=== PATIENT | female | born 1940 | race Caucasian/White ===

== ENCOUNTER → 2017-08-10 | Outpatient (CLI) | payer MEDICARE ==
--- NOTE | 2017-08-11 08:32 | MM ---
Reason for exam: additional evaluation requested from abnormal screening. Last mammogram was performed 1 month ago. History: Patient is postmenopausal and is nulliparous. Family history of breast cancer in sister at age 57, breast cancer in maternal cousin at age 70, and breast cancer in paternal cousin at age 55. Benign excisional biopsy of the right breast, 1998. Benign excisional biopsy of the left breast, 1995. Benign cyst aspiration of the left breast, 1979. Benign excisional biopsy of the left breast, 1979. Benign excisional biopsy of the left breast, 1977. Benign excisional biopsy of the right breast, 1976. Cyst aspiration of the left breast. Cyst aspiration of the right breast. Physical Findings: Nurse did not find any significant physical abnormalities on exam. MG 3D Work Up W/Cad RT CC with magnification, LM with magnification, and LM view(s) were taken of the right breast. Prior study comparison: July 24, 2017, bilateral MG 3d screening mammo w/cad. July 22, 2016, bilateral MG 3d screening mammo w/cad. The breast tissue is extremely dense which could obscure a lesion on mammography. Finding: There are typically benign, increased density heterogeneous, grouped/clustered calcifications in the 12 o'clock position of the right breast, 5 cm from the nipple. New finding since July 22, 2016. These results were verbally communicated with the patient and result sheet given to the patient on 08/10/17. ASSESSMENT: Probably benign, BI-RAD 3 RECOMMENDATION: Follow-up diagnostic mammogram of the right breast in 6 months.
== END | disposition home or self-care (01) ==
LOC: RADMAMWWP 15:29
PROVIDERS: ATTEND Family Medicine
DX: R92.8 Other abnormal and inconclusive findings on diagnostic imaging of breast (principal)
CPT/HCPCS: G0206; G0279

== ENCOUNTER → 2018-03-05 | Outpatient (CLI) | payer MEDICARE | END | disposition home or self-care (01) | LOC: LABWHC1 10:19 | PROVIDERS: ATTEND Otolaryngology | DX: H93.3X2 Disorders of left acoustic nerve (principal); H91.90 Unspecified hearing loss, unspecified ear; R42 Dizziness and giddiness | CPT/HCPCS: 36415; 82565; 84520 ==

== ENCOUNTER → 2018-03-05 | Outpatient (CLI) | payer MEDICARE ==
--- NOTE | 2018-03-05 11:17 | MM ---
Reason for exam: follow-up at short interval from prior study. Last mammogram was performed 7 months ago. History: Patient is postmenopausal and is nulliparous. Family history of breast cancer in sister at age 57, breast cancer in maternal cousin at age 70, and breast cancer in paternal cousin at age 55. Benign excisional biopsy of the right breast, 1998. Benign excisional biopsy of the left breast, 1995. Benign cyst aspiration of the left breast, 1979. Benign excisional biopsy of the left breast, 1979. Benign excisional biopsy of the left breast, 1977. Benign excisional biopsy of the right breast, 1976. Cyst aspiration of the left breast. Cyst aspiration of the right breast. Physical Findings: Nurse did not find any significant physical abnormalities on exam. MG 3D Diag Mammo W/Cad RT CC and MLO view(s) were taken of the right breast. Prior study comparison: August 10, 2017, right breast MG 3d work up w/cad RT. July 24, 2017, bilateral MG 3d screening mammo w/cad. The breast tissue is heterogeneously dense. This may lower the sensitivity of mammography. Grouped calcifications 12 o'clock right breast stable for 6 months , suspected fat necrosis. Architectural distortion posterior upper outer right breast appears to have been present in 2014 but now better seen with 3D, likely excisional scar. These results were verbally communicated with the patient and result sheet given to the patient on 03/05/18. ASSESSMENT: Probably benign, BI-RAD 3 RECOMMENDATION: Follow-up diagnostic mammogram of both breasts in 6 months (this will be a total 1 year short interval followup for the right breast). LEÓN
== END | disposition home or self-care (01) ==
LOC: RADMAMWWP 09:26
PROVIDERS: ATTEND Family Medicine
DX: R92.8 Other abnormal and inconclusive findings on diagnostic imaging of breast (principal)
CPT/HCPCS: 77065; G0279; 77061

== ENCOUNTER → 2018-03-07 | Outpatient (CLI) | payer MEDICARE ==
--- NOTE | 2018-03-07 12:06 | MR ---
EXAMINATION TYPE: MR brain and iac wo/w con DATE OF EXAM: 03/07/2018 10:38 AM COMPARISON: NONE HISTORY: Acoustic Nerve Dis / Hearing Loss / Dizziness, LYONS CONTRAST: Patient received 6.5 mL intravenous Gadavist gadolinium contrast. Multiplanar and multispin-echo imaging of the brain was performed . Pre and post contrast enhanced i mages are obtained.High-resolution imaging of the internal auditory canals. The ventricles, basal cisterns and sulci overlying the cerebral convexities are mildly enlarged. There is evidence of moderate periventricular white matter ischemic demyelination. Remote deep white matter insults are also noted. No acute edema is seen on diffusion weighted imaging. There is no evidence for midline shift or mass effect. Acute intracranial hemorrhage or extra-axial collection is not evident. No enhancing lesions are seen. The paranasal sinuses and mastoid air cells are well-aerated. High-resolution imaging of the internal auditory canals fails demonstrate evidence for an enhancing a coustic schwannoma or cerebellopontine cistern angle mass. IMPRESSION: 1. Age-related atrophic and chronic small vessel ischemic change. No acute intracranial process at t his time. No enhancing lesions are seen. 2 no evidence for an enhancing acoustic schwannoma or cerebellopontine cistern angle mass.
== END | disposition home or self-care (01) ==
LOC: RADMRIMAIN 09:23
PROVIDERS: ATTEND Otolaryngology
DX: G31.9 Degenerative disease of nervous system, unspecified (principal); I67.82 Cerebral ischemia
CPT/HCPCS: 70553; A9581

== ENCOUNTER → 2018-11-19 | Outpatient (CLI) | payer MEDICARE ==
[2018-11-19 16:31] LABS: Anisocytosis Slight; Basophils % (A) 2 %; Eosinophils # (A) 0.2 k/uL (0-0.7); Eosinophils % (A) 7 %; HCT 28.3 % (34.0-46.0); HGB 8.9 gm/dL (11.4-16.0); Hypochromasia Slight; Lymphocytes % (A) 45 %; MCH 37.3 pg (25.0-35.0); MCHC 31.6 g/dL (31.0-37.0); MCV 118.1 fL (80.0-100.0); Macrocytosis Marked; Mean Platelet Volume 7.5; Monocytes # (A) 0.1 k/uL (0-1.0); Monocytes % (A) 6 %; Neutrophils # (A) 0.8 k/uL (1.3-7.7); Neutrophils % (A) 37 %; Platelet Count 423 k/uL (150-450); RDW 16.7 % (11.5-15.5); WBC 2.1 k/uL (3.8-10.6)
== END | disposition home or self-care (01) ==
LOC: LABWHC1 15:06
PROVIDERS: ATTEND Psychiatry & Neurology Neurology
DX: D64.9 Anemia, unspecified (principal); T42.0X5A Adverse effect of hydantoin derivatives, initial encounter
CPT/HCPCS: 36415; 85025

== ENCOUNTER → 2019-03-18 | Outpatient (CLI) | payer MEDICARE ==
[2019-03-18 13:50] LABS: Anisocytosis Slight; HCT 24.2 % (34.0-46.0); HGB 7.9 gm/dL (11.4-16.0); Hypochromasia Slight; MCH 40.6 pg (25.0-35.0); MCHC 32.8 g/dL (31.0-37.0); MCV 123.8 fL (80.0-100.0); Macrocytosis Marked; Mean Platelet Volume 7.8; Platelet Count 440 k/uL (150-450); RBC 1.95 m/uL (3.80-5.40); RDW 18.5 % (11.5-15.5)
[2019-03-18 14:42] LABS: Eosinophils # (M) 0.06 k/uL (0-0.7); Lymphocytes # (M) 0.92 k/uL (1.0-4.8); Monocytes # (M) 0.14 k/uL (0-1.0); Neutrophils % (M) 44 %; Nucleated Red Blood Cells 0 /100 WBC (0-0); Total Cells Counted 100
[2019-03-18 14:43] LABS: Poikilocytosis (M) Present
[2019-03-18 14:44] LABS: Polychromasia Present; Tear Drop Cells Present
== END | disposition home or self-care (01) ==
LOC: LABWHC1 12:48
PROVIDERS: ATTEND Psychiatry & Neurology Neurology
DX: R79.9 Abnormal finding of blood chemistry, unspecified (principal)
CPT/HCPCS: 36415; 85025

== ENCOUNTER → 2019-04-12 | Outpatient (CLI) | payer MEDICARE ==
[2019-04-12 16:41] LABS: Protein, Total 5.7 g/dL (6.2-8.2)
[2019-04-12 19:15] LABS: Hemoglobin A1C 4.9 % (4.0-6.0)
[2019-04-12 19:40] LABS: Phenytoin (Dilantin) 4.6 ug/mL (10.0-20.0)
[2019-04-16 11:09] LABS: Lyme IgG/IgM 0.11 Index
[2019-04-16 11:48] LABS: ANA Pattern See Footnote
[2019-04-16 12:50] LABS: Albumin 3.73 g/dL (3.80-4.90); Gamma Globulin 0.75 g/dL (0.70-1.50)
== END | disposition home or self-care (01) ==
LOC: LABWHC1 09:03
PROVIDERS: ATTEND Psychiatry & Neurology Neurology
DX: G40.909 Epilepsy, unspecified, not intractable, without status epilepticus (principal); T50.905A Adverse effect of unspecified drugs, medicaments and biological substances, initial encounter; R73.9 Hyperglycemia, unspecified; G62.9 Polyneuropathy, unspecified
CPT/HCPCS: 36415; 80185; 82550; 83036; 84165; 85652; 86038; 86039; 86618

== ENCOUNTER → 2019-05-10 | Outpatient (CLI) | payer MEDICARE ==
--- NOTE | 2019-05-10 14:11 | MM ---
Reason for exam: additional evaluation requested from prior study. Last mammogram was performed 1 year and 2 months ago. History: Patient is postmenopausal and is nulliparous. Family history of breast cancer in sister at age 57, breast cancer in maternal cousin at age 70, and breast cancer in paternal cousin at age 55. Benign excisional biopsy of the right breast, 1998. Benign excisional biopsy of the left breast, 1995. Benign cyst aspiration of the left breast, 1979. Benign excisional biopsy of the left breast, 1979. Benign excisional biopsy of the left breast, 1977. Benign excisional biopsy of the right breast, 1976. Cyst aspiration of the left breast. Cyst aspiration of the right breast. Physical Findings: Nurse did not find any significant physical abnormalities on exam. MG 3D Diag Mammo W/Cad SATNAM Bilateral CC and MLO view(s) were taken. Prior study comparison: March 05, 2018, right breast MG 3d diag mammo w/cad RT. August 10, 2017, right breast MG 3d work up w/cad RT. The breast tissue is extremely dense which could obscure a lesion on mammography. No significant new findings when compared with previous films. These results were verbally communicated with the patient and result sheet given to the patient on 05/10/19. ASSESSMENT: Benign, BI-RAD 2 RECOMMENDATION: Routine screening mammogram of both breasts in 1 year.
== END | disposition home or self-care (01) ==
LOC: RADMAMWWP 12:06
PROVIDERS: ATTEND Family Medicine
DX: N64.89 Other specified disorders of breast (principal)
CPT/HCPCS: 77066; G0279; 77062

== ENCOUNTER → 2019-05-10 | Outpatient (CLI) | payer MEDICARE | END | disposition home or self-care (01) | LOC: LABWHC1 12:19 | PROVIDERS: ATTEND Psychiatry & Neurology Neurology | DX: G62.9 Polyneuropathy, unspecified (principal) | CPT/HCPCS: 36415; 86038; 86235 ==

== ENCOUNTER → 2019-05-29 | Outpatient (CLI) | payer MEDICARE ==
--- NOTE | 2019-05-29 16:01 | XR ---
EXAMINATION TYPE: XR chest 2V DATE OF EXAM: 05/29/2019 COMPARISON: None INDICATION: Left lower zone pneumonia TECHNIQUE: Frontal and lateral views of the chest are obtained. FINDINGS: The heart size is normal. The pulmonary vasculature is normal. The lungs are clear. No left lower lobe infiltrate is evident. IMPRESSION: 1. No acute pulmonary process.
== END | disposition home or self-care (01) ==
LOC: RADXRMAIN 14:15
PROVIDERS: ATTEND Family Medicine
DX: J18.1 Lobar pneumonia, unspecified organism (principal)
CPT/HCPCS: 71046

== ENCOUNTER 2020-02-18 14:13 | Inpatient (IN) | payer MEDICARE ==
[2020-02-18] MEDS ORDERED: ALBUTEROL NEBULIZED 2.5 MG/3 ML INHALATION PRN (21:00)
[2020-02-18] MEDS ORDERED: IPRATROPIUM-ALBUTEROL 3 ML NEB INHALATION PRN (21:00)
[2020-02-18] MEDS ORDERED: ALPRAZolam 0.25 MG TAB PO PRN (21:01)
[2020-02-18] MEDS ORDERED: MELATONIN 3 MG TABLET PO PRN (21:01)
[2020-02-18] MEDS ORDERED: NA PHOS,M-B/NA PHOS,DI-BA 133 ML ENEMA RECTAL PRN (21:01)
[2020-02-18] MEDS ORDERED: CALCIUM CARBONATE 500 MG CHEWABLE PO PRN (21:01)
[2020-02-18] MEDS ORDERED: NALOXONE 0.4 MG/ML 1 ML VIAL IV PRN (21:01)
[2020-02-18] MEDS ORDERED: MAG HYDROX/AL HYDROX/SIMETH 30 ML CUP PO PRN (21:01)
[2020-02-18] MEDS ORDERED: ONDANSETRON 4 MG/2 ML VIAL IVP PRN (21:01)
[2020-02-18] MEDS ORDERED: MAGNESIUM HYDROXIDE 2,400 MG/10 ML CUP PO PRN (21:01)
[2020-02-18] MEDS ORDERED: LACTULOSE 20 GM/30 ML CUP PO PRN (21:01)
[2020-02-18] MEDS ORDERED: ACETAMINOPHEN TAB 325 MG TAB PO PRN (21:01)
[2020-02-18] MEDS: PHENobarbital 32.4 MG TAB PO SCH (21:34)
[2020-02-18] MEDS: PHENYTOIN SODIUM EXTENDED 100 MG CAP PO SCH (21:35)
[2020-02-18] MEDS: MONTELUKAST 10 MG TAB PO SCH (21:35)
[2020-02-19] MEDS ORDERED: MD COMMUNICATION TO PHARMACY 1 EACH MISC PO ONE (07:20)
[2020-02-19 07:55] LABS: Anisocytosis Moderate; Basophils % (A) 2 %; Eosinophils # (A) 0.1 k/uL (0-0.7); Eosinophils % (A) 7 %; Hypochromasia Moderate; Lymphocytes # (A) 0.5 k/uL (1.0-4.8); Lymphocytes % (A) 36 %; MCH 36.1 pg (25.0-35.0); MCHC 30.9 g/dL (31.0-37.0); MCV 116.6 fL (80.0-100.0); Macrocytosis Marked; Mean Platelet Volume 8.5; Monocytes # (A) 0.1 k/uL (0-1.0); Monocytes % (A) 6 %; Neutrophils # (A) 0.6 k/uL (1.3-7.7); Neutrophils % (A) 46 %; Platelet Count 350 k/uL (150-450); RBC 2.23 m/uL (3.80-5.40); RDW 23.6 % (11.5-15.5)
[2020-02-19 08:00] LABS: WBC 1.3 k/uL (3.8-10.6)
[2020-02-19 08:04] LABS: ALT 25 U/L (4-34); AST 27 U/L (14-36); African American GFR (CKD) >90 (>60 ml/min/1.73 sqM); Albumin 2.9 g/dL (3.5-5.0); Alkaline Phosphatase 38 U/L (38-126); Anion Gap 2 mmol/L; Blood Urea Nitrogen 14 mg/dL (7-17); Calcium 7.9 mg/dL (8.4-10.2); Carbon Dioxide 28 mmol/L (22-30); Chloride 108 mmol/L (98-107); Glucose 90 mg/dL (74-99); Non-African American GFR(CKD) >90 (>60 ml/min/1.73 sqM); Potassium 4.5 mmol/L (3.5-5.1); Sodium 138 mmol/L (137-145); Total Bilirubin 0.4 mg/dL (0.2-1.3); Total Protein 4.9 g/dL (6.3-8.2)
--- NOTE | 2020-02-19 08:38 | P.GSCN ---
History of Present Illness Consult date: 02/19/20 Reason for Consult: Severe calcific coronary artery disease with left main disease Requesting physician: Juan Diego Crooks History of present illness: This is a 79-year-old active female patient who follows on an outpatient basis with Dr. Jacqueline Lorenzo. She has a previous medical history of polio, seizures, pneumonia, pernicious anemia, and family history of premature coronary artery disease with father having open heart surgery 54 years old with the Vineberg procedure. She is a lifelong nonsmoker. Apparently in November 2019 she was experiencing shortness of breath and was unable to take a deep breath, she presented to [facility] for evaluation and treatment and was seen and worked up by primary and pulmonology and was discharged to home. She had repeat lab work and was instructed to go to emergency room by Dr. VLAD Crooks, however she refused to go as she "had things to do". Last week she was again instructed by Dr. VLAD Crooks to go to the emergency room for low hemoglobin and she presented to [facility] for evaluation treatment. While there she did receive 2 units packed red blood cells and consultations were placed to GI and hematology for anemia evaluation. She was stabilized and told she could continue workup on an outpatient basis. Her troponins were elevated which was thought to be mismatch due to low hemoglobin, however she did undergo heart catheterization demonstrating a distal left main disease 70-80%, and severely calcified triple-vessel coronary artery disease with proximal LAD stenosis 70-80%, mid LAD stenosis subtotally occluded 99%, first obtuse marginal stenosis 90%, distal RCA stenosis 70%, and PDA stenosis 70-80%. In addition she underwent transthoracic echocardiogram with borderline left ventricular systolic dysfunction with EF 45%, and no significant valvular pathology. She was transferred to [facility] for cardiothoracic surgery evaluation. Upon further questioning, the patient does state that she in November 2019 she did have some chest pressure with radiation to her right arm in addition to her shortness of breath. It was intermittent and lasted through November and December, but went away after antibiotic and nebulizer treatments. She states she was completely asymptomatic with admission to this hospitalization. Dr. Gastelum from cardiothoracic surgery was consulted for surgical recommendations. Review of Systems Review of systems was completed and was negative except as noted in the HPI Past Medical History Past Medical History: Coronary Artery Disease (CAD), Myocardial Infarction (MT), Pneumonia, Seizure Disorder Additional Past Medical History / Comment(s): polio, shingles History of Any Multi-Drug Resistant Organisms: None Reported Past Surgical History: Appendectomy, Hysterectomy, Tonsillectomy Additional Past Surgical History / Comment(s): hemmorhoid surgery x 3, breast biopsy x3 Past Anesthesia/Blood Transfusion Reactions: No Reported Reaction Past Psychological History: No Psychological Hx Reported Smoking Status: Never smoker Past Alcohol Use History: None Reported Past Drug Use History: None Reported - Past Family History Mother Family Medical History: Coronary Artery Disease (CAD) Additional Family Medical History / Comment(s): glucoma, ruptured aorta Father Family Medical History: Chest Pain / Angina, Coronary Artery Disease (CAD) Additional Family Medical History / Comment(s): CABG (Vineberg procedure at 54 years old) Sister(s) Family Medical History: Cancer Additional Family Medical History / Comment(s): Breast cancer with double mastectomy Medications and Allergies Home Medications Medication Instructions Recorded Confirmed Type Albuterol Sulfate [Albuterol 2 puff PO RT-Q4H PRN 02/18/20 02/18/20 History Sulfate Hfa] Alendronate Sodium [Fosamax] 70 mg PO FR 02/18/20 02/18/20 History Aspirin EC [Ecotrin] 325 mg PO DAILY 02/18/20 02/18/20 History Beclomethasone Dip 80 Mcg/Puff 2 puff INHALATION RT-BID 02/18/20 02/18/20 History [Qvar 80 mcg] Cholecalciferol [Vitamin D3 (25 1,000 unit PO DAILY 02/18/20 02/18/20 History Mcg = 1000 Iu)] Fexofenadine HCl [Jessica Allergy] 180 mg PO DAILY PRN 02/18/20 02/18/20 History Ipratropium-Albuterol Nebulize 3 ml INHALATION RT-QID PRN 02/18/20 02/18/20 History [Duoneb 0.5 mg-3 mg/3 ml Soln] Montelukast Sodium [Singulair] 10 mg PO HS 02/18/20 02/18/20 History PHENobarbital 32.4 mg PO BID 02/18/20 02/18/20 History Phenytoin Sodium Extended 100 mg PO TID 02/18/20 02/18/20 History [Dilantin] Allergies Allergy/AdvReac Type Severity Reaction Status Date / Time No Known Allergies Allergy Verified 02/18/20 18:11 Surgical - Exam Vital Signs Temp Pulse Resp BP Pulse Ox 98.5 F 74 18 112/56 97 02/18/20 17:30 02/18/20 17:30 02/18/20 17:30 02/18/20 17:30 02/18/20 17:30 - General well developed, well nourished, no distress, no pain, cachectic - Eyes PERRL, normal ocular movement - ENT no hearing loss - Neck no masses, no bruits, trachea midline - Respiratory Lungs sounds clear bilaterally. Respirations even, nonlabored. Currently on room air with oxygen saturation 96%. No chest wall deformities, no clubbing or cyanosis present. - Cardiovascular S1, S2 present. Regular rate and rhythm, sinus rhythm on telemetry. Palpable peripheral pulses bilaterally. No edema present. No calf pain or tenderness noted. Varicosities noted to bilateral lower extremities. - Abdomen Abdomen: soft, non tender, bowel sounds - Genitourinary Deferred - Rectum Deferred - Integumentary no rash, no growths - Neurologic normal coordination, normal sensation - Musculoskeletal normal gait, normal posture - Psychiatric oriented to time, oriented to person, oriented to place, speech is normal, memory intact Results - Labs 02/19/20 07:18 Abnormal Lab Results - Last 24 Hours (Table) 02/19/20 Range/Units 07:18 RBC 2.23 L (3.80-5.40) m/uL Hgb 8.0 L (11.4-16.0) gm/dL Hct 26.0 L (34.0-46.0) % MCV 116.6 H (80.0-100.0) fL MCH 36.1 H (25.0-35.0) pg MCHC 30.9 L (31.0-37.0) g/dL RDW 23.6 H (11.5-15.5) % Macrocytosis Marked A Assessment and Plan Assessment: 1. Severe calcific triple-vessel coronary artery disease with left main disease 2. Macrocytic anemia, history of pernicious anemia, previously on B12 but no longer, status post transfusion 2 units packed red blood cells at the [facility] 3. Seizure disorder, currently treated with Dilantin and phenobarb 4. History of polio 5. History of pneumonia, last episode greater than 6 months ago 6. Family history of premature coronary artery disease 7. Lifelong nonsmoker Plan: The patient was seen and examined at the bedside. Chart/diagnostics were reviewed. Will review her heart catheterization and transthoracic echocardiogram films with Dr. Gastelum today. The usual course of coronary artery bypass surgery was discussed in detail with the patient, risks and benefits were reviewed, all questions were answered. Preoperative testing was initiated. Recommend continuing aspirin; statin and beta manuel were initiated. Will perform 5 m walk test. Once all preoperative testing has been completed will calculate STS risk score and discuss with the patient. Further medical management of other comorbidities per primary care service. We will order hematology to see the patient and order 1 dose IV iron. We will make recommendations for surgical revascularization once all preoperative testing has been completed and we have had the opportunity to review her heart catheterization and echocardiogram films. Thank you Dr. Crooks for this consult. We look forward to working with you in the care of your patient. Time with Patient: Greater than 30
[2020-02-19] MEDS ORDERED: SODIUM FERRIC GLUCONAT-SUCROSE 125 MG in SODIUM CHLORIDE 0.9% 100 ML IVPB ONE ×2 (08:40→12:00)
[2020-02-19] MEDS: PHENYTOIN SODIUM EXTENDED 100 MG CAP PO SCH ×3 (08:55→20:28)
[2020-02-19] MEDS: PHENobarbital 32.4 MG TAB PO SCH ×2 (08:56→20:28)
[2020-02-19] MEDS ORDERED: MUPIROCIN 2% OINT 22 GM TUBE NASAL SCH ×2 (09:00→21:00)
[2020-02-19] MEDS ORDERED: METOPROLOL TARTRATE 12.5 MG TAB PO SCH (09:00)
[2020-02-19] MEDS ORDERED: ATORVASTATIN 20 MG TAB PO SCH (09:00)
[2020-02-19] MEDS ORDERED: ASPIRIN 325 MG TAB PO SCH (09:00)
[2020-02-19] MEDS ORDERED: FLUTICASONE 110 MCG INHALER INHALATION ONE (11:41)
[2020-02-19] MEDS ORDERED: CYANOCOBALAMIN 1,000 MCG/ML 1 ML VIAL IM ONE (12:00)
--- NOTE | 2020-02-19 12:12 | CONS ---
CONSULTATION PULMONARY/CRITICAL CARE CONSULTATION: This is a 79-year-old female whom we were asked to see preoperatively for potential bypass grafting. The patient apparently has severe calcific coronary artery disease with left main disease. This is a 79-year-old female who follows with Dr. Vahe Lorenzo. She has a history of polio, seizures, pneumonia, pernicious anemia, and a family history of premature coronary disease. The patient is a lifelong nonsmoker. We were asked to see her preoperatively. She did have pulmonary function testing. The PFTs looked excellent. I believe she will do well with surgery. Anyway, she apparently was initially seen by Dr. VLAD irving at [facility] and she was apparently sent to the hospital there into the emergency room for a low hemoglobin. The patient did receive 2 units of PRBCs. She had consultations placed to GI and Hematology for anemia evaluation. Her workup included a heart catheterization, which demonstrated the distal left main lesion of 70% to 80%, severely calcified triple- vessel coronary artery disease with proximal LAD stenosis, 70% to 80%, mid LAD stenosis, subtotally occluded 99%, first obtuse marginal of 90%, distal RCA stenosis 70% and PDA stenosis 70% to 80%. A transthoracic echocardiogram showed borderline left ventricular systolic dysfunction with an ejection fraction of 45%. She was sent to [facility] for cardiothoracic evaluation. Hence, I saw her for preop clearance. She had no prior history of any lung issues. PAST MEDICAL HISTORY: Includes CAD, myocardial infarction, pneumonia, seizure disorder, polio, and shingles. SURGICAL HISTORY: Includes appendectomy, hysterectomy, tonsillectomy, hemorrhoid surgery x3, breast biopsy x3. SOCIAL HISTORY: Negative tobacco use. She denies any alcohol use or illicit drug use. FAMILY HISTORY: Positive for CAD in her mother with a history also of glaucoma and ruptured aorta and father has a history of angina, CAD, and previous bypass grafting. She also has a sister who has breast cancer with double mastectomy. OUTPATIENT MEDICATIONS: Included aspirin, Fosamax, cholecalciferol, Jessica, Singulair, phenobarbital and Dilantin. ALLERGIES: Denied. REVIEW OF SYSTEMS: CONSTITUTIONAL: Negative. NEUROLOGIC: Negative. HEENT: Negative. CARDIOVASCULAR: Negative. PULMONARY: Shortness of breath, resolved. GI: Negative. : Negative. RHEUMATOLOGIC: Negative. IMMUNOLOGIC: Negative. ENDOCRINOLOGIC: Negative. DERMATOLOGIC: Negative. Vital signs are reviewed. Her vital signs show a temperature 98.5, heart rate 72, respiratory rate 16, blood pressure 112/56 and room-air saturation 97%. She appears in no acute distress. HEENT: Examination is grossly unremarkable. No supplemental oxygen. NECK: Supple. Full range of motion. No adenopathy. Neck veins are flat. CARDIOVASCULAR: Examination reveals regular rhythm and rate. S1, S2 normal. No S3, S4, or murmur. LUNGS: Reveal clear breath sounds equal. No wheezes, rhonchi, or crackles. ABDOMEN: Soft, bowel sounds are heard. No masses or tenderness. EXTREMITIES: Intact. No cyanosis, clubbing, or edema. SKIN: Without rash. NEUROLOGIC: Examination is brief but nonfocal. MOST RECENT LABORATORY DATA: Includes a hemoglobin of 8, hematocrit 26.0, and a platelet count of 350,000. Her sodium was 138, potassium 4.5, chloride 108, CO2 is 28, anion gap was 2, carbon dioxide bicarbonate concentration 28, BUN and creatinine were 14 and 0.51. Albumin 2.9. Chest x-ray was not available to reviewed. ASSESSMENT: 1. Severe triple-vessel coronary artery disease with left main disease, currently being evaluated by Cardiothoracic Surgery for bypass grafting. 2. No history of any intrinsic pulmonary disease and the patient was a lifelong nonsmoker. 3. More than adequate spirometry with reasonable lung function predicting no significant issues for general anesthesia. 4. History of macrocytic anemia. 5. History of pernicious anemia with the recent blood transfusion of 2 units of PRBCs. 6. Seizure disorder. 7. History of polio. 8. Previous history of pneumonia. 9. Family history of premature coronary disease. 10.Lifelong nonsmoker. PLAN: The patient should do well. Continue to follow. I did look at her PFTs. Currently, she is being evaluated by Hematology. No decision has been made for surgery as yet. She may end up having surgery tomorrow. Will continue to follow throughout this hospitalization whether she has surgery or not. MMODL / IJN: [id number] / MTDD
[2020-02-19 12:38] LABS: Appearance,Urine Clear (Clear); Bilirubin,Urine Negative (Negative); Blood,Urine Negative (Negative); Color,Urine Light Yellow; Glucose,Urine (UA) Negative (Negative); Ketones,Urine Negative (Negative); Leukocyte Esterase,Urine Negative (Negative); Nitrite,Urine Negative (Negative); PH, Urine 6.5 (5.0-8.0); Protein,Urine Negative (Negative); Specific Gravity,Urine 1.005 (1.001-1.035); Urobilinogen,Urine <2.0 mg/dL (<2.0)
[2020-02-19] MEDS: FLUTICASONE 110 MCG INHALER INHALATION SCH ×2 (12:40→19:35)
[2020-02-19 13:51] LABS: INR 1.1 (<1.2); Partial Thromboplastin Time 22.5 sec (22.0-30.0); Prothrombin Time 10.9 sec (9.0-12.0)
[2020-02-19 13:53] LABS: Magnesium 2.2 mg/dL (1.6-2.3)
[2020-02-19 13:56] LABS: Poikilocytosis (M) Present
--- NOTE | 2020-02-19 14:11 | XR ---
EXAMINATION TYPE: XR chest 2V DATE OF EXAM: 02/19/2020 COMPARISON: Prior chest x-ray 05/29/2019 HISTORY: Preop coronary bypass graft TECHNIQUE: Frontal and lateral views of the chest are obtained. FINDINGS: There is no focal air space opacity, pleural effusion, or pneumothorax seen. The cardiac silhouette size is within normal limits. The osseous structures are intact, there is a thoracic spi nal curvature. The aorta is dense. There are overlying cardiac leads. IMPRESSION: No acute cardiopulmonary process.
--- NOTE | 2020-02-19 14:51 | US ---
EXAMINATION TYPE: US carotid duplex BILAT DATE OF EXAM: 02/19/2020 COMPARISON: NONE CLINICAL HISTORY: PREOP CABG. EXAM MEASUREMENTS: RIGHT: Peak Systolic Velocity (PSV) cm/sec ----- Right CCA: 98.1 ----- Right ICA: 93.8 ----- Right ECA: 243 ICA/CCA ratio: 0.9 RIGHT: End Diastole cm/sec ----- Right CCA: 0.0 ----- Right ICA: 19.0 ----- Right ECA: 0 LEFT: Peak Systolic Velocity (PSV) cm/sec ----- Left CCA: 101 ----- Left ICA: 114 ----- Left ECA: 169 ICA/CCA ratio: 1.1 LEFT: End Diastole cm/sec ----- Left CCA: 0.0 ----- Left ICA: 23.4 ----- Left ECA: 10.9 VERTEBRALS (direction of flow): Right Vertebral: Antegrade Left Vertebral: Antegrade Rhythm: Normal Moderate amount of plaque visualized bilaterally. Elevated velocities visualized in right and left EC As. A large plaques within the right carotid bulb Intimal thickening is through the carotid bifurcati ons. IMPRESSION: Atheromatous plaquing without significant flow-limiting stenosis. This is greatest withi n the right carotid bulb. Correlate with the patient's clinical symptoms. Criteria for Assigning % of Stenosis / Diameter reduction (Estimation based on the indirect measurements of the internal carotid artery velocities (ICA PSV). 1. Normal (no stenosis)=ICA PSV < 125 cm/s: ratio < 2.0: ICA EDV<40 cm/s. 2. Less than 50% stenosis=ICA PSV < 125 cm/s: ratio < 2.0: ICA EDV<40 cm/s. 3. 50 to 69% stenosis=ICA PSV of 125 to 230 cm/s: ration 2.0 ? 4.0: ICA EDV 40-100 cm/s. 4. Greater than 70% stenosis to near occlusion= ICA PSV > 230 cm/s: ratio > 4.0: ICA EDV > 100 cm/s. 5. Near occlusion= ICA PSV velocities may be low or undetectable: variable ratio and ICA EDV. 6. Total occlusion=unable to detect flow.
[2020-02-19] MEDS ORDERED: ALBUMIN HUMAN 5% 500 ML IVPB ONE (16:00)
[2020-02-19] MEDS ORDERED: NITROGLYCERIN SL TABS 0.4 MG TAB SUBLINGUAL ONE (16:38)
--- NOTE | 2020-02-19 17:32 | P.CONS ---
History of Present Illness - Reason for Consult Consult date: 02/19/20 Anemia, clearance for cardiac surgery Requesting physician: Jeanine Zhu - Chief Complaint CABG - History of Present Illness We have been asked to see patient regarding anemia for clearance for CABG. Dr. Jara and Dr. Gastelum have discussed the case extensively. Patient has already had majority of anemia workup. When seen patient is sitting comfortably in bed, she has no acute complaints of a 14 point review of systems. Review of Systems 14 point review of systems is negative. Past Medical History Past Medical History: Coronary Artery Disease (CAD), Myocardial Infarction (CT), Pneumonia, Seizure Disorder Additional Past Medical History / Comment(s): polio, shingles History of Any Multi-Drug Resistant Organisms: None Reported Past Surgical History: Appendectomy, Hysterectomy, Tonsillectomy Additional Past Surgical History / Comment(s): hemmorhoid surgery x 3, breast biopsy x3 Past Anesthesia/Blood Transfusion Reactions: No Reported Reaction Past Psychological History: No Psychological Hx Reported Smoking Status: Never smoker Past Alcohol Use History: None Reported Past Drug Use History: None Reported - Past Family History Mother Family Medical History: Coronary Artery Disease (CAD) Additional Family Medical History / Comment(s): glucoma, ruptured aorta Father Family Medical History: Chest Pain / Angina, Coronary Artery Disease (CAD) Additional Family Medical History / Comment(s): CABG (Vineberg procedure at 56 years old) Sister(s) Family Medical History: Cancer Additional Family Medical History / Comment(s): Breast cancer with double mastectomy Medications and Allergies Home Medications Medication Instructions Recorded Confirmed Type Albuterol Sulfate [Albuterol 2 puff PO RT-Q4H PRN 02/18/20 02/18/20 History Sulfate Hfa] Alendronate Sodium [Fosamax] 70 mg PO FR 02/18/20 02/18/20 History Aspirin EC [Ecotrin] 325 mg PO DAILY 02/18/20 02/18/20 History Beclomethasone Dip 80 Mcg/Puff 2 puff INHALATION RT-BID 02/18/20 02/18/20 History [Qvar 80 mcg] Cholecalciferol [Vitamin D3 (25 1,000 unit PO DAILY 02/18/20 02/18/20 History Mcg = 1000 Iu)] Fexofenadine HCl [Jessica Allergy] 180 mg PO DAILY PRN 02/18/20 02/18/20 History Ipratropium-Albuterol Nebulize 3 ml INHALATION RT-QID PRN 02/18/20 02/18/20 History [Duoneb 0.5 mg-3 mg/3 ml Soln] Montelukast Sodium [Singulair] 10 mg PO HS 02/18/20 02/18/20 History PHENobarbital 32.4 mg PO BID 02/18/20 02/18/20 History Phenytoin Sodium Extended 100 mg PO TID 02/18/20 02/18/20 History [Dilantin] Allergies Allergy/AdvReac Type Severity Reaction Status Date / Time No Known Allergies Allergy Verified 02/18/20 18:11 Physical Exam Vitals: Vital Signs Temp Pulse Resp BP Pulse Ox 02/19/20 11:15 98.5 F 60 18 111/60 98 02/19/20 08:20 98.1 F 75 18 128/55 98 02/19/20 04:00 98.2 F 62 113/57 96 02/18/20 23:10 98 F 80 134/63 95 02/18/20 23:03 98.2 F 68 133/60 98 02/18/20 20:00 97.9 F 72 111/56 97 02/18/20 17:30 98.5 F 74 18 112/56 97 Intake and Output 02/19/20 02/19/20 02/19/20 06:59 14:59 22:59 Intake Total 480 Balance 480 Intake: Oral 480 Other: # Voids 3 2 Weight 58.5 kg Well-developed, thin built, in no acute distress, respirations even and unlabored, abdominal distention, swelling in the legs - Constitutional General appearance: cooperative, no acute distress, thin - EENT Eyes: anicteric sclerae, EOMI ENT: hearing grossly normal Results CBC & Chem 7: 02/19/20 07:18 02/19/20 07:18 Labs: Abnormal Lab Results - Last 24 Hours (Table) 02/19/20 02/19/20 02/19/20 Range/Units 07:18 07:18 13:03 WBC 1.3 L* (3.8-10.6) k/uL RBC 2.23 L (3.80-5.40) m/uL Hgb 8.0 L (11.4-16.0) gm/dL Hct 26.0 L (34.0-46.0) % MCV 116.6 H (80.0-100.0) fL MCH 36.1 H (25.0-35.0) pg MCHC 30.9 L (31.0-37.0) g/dL RDW 23.6 H (11.5-15.5) % Neutrophils # 0.6 L (1.3-7.7) k/uL Lymphocytes # 0.5 L (1.0-4.8) k/uL Macrocytosis Marked A Chloride 108 H (98-107) mmol/L Creatinine 0.51 L (0.52-1.04) mg/dL Calcium 7.9 L (8.4-10.2) mg/dL Total Protein 4.9 L (6.3-8.2) g/dL Albumin 2.9 L (3.5-5.0) g/dL HDL Cholesterol 65 H (40-60) mg/dL Microbiology - Last 24 Hours (Table) 02/19/20 08:45 Nasal Screen MRSA/MSSA - Preliminary Nasal Swab Assessment and Plan (1) Macrocytic anemia Narrative/Plan: Pt was worked up extensively at [facility] in the last 2 weeks. There were a few labs that were not reported yet, these have been ordered. Dr. Jara and Dr. Gastelum have discussed the case previously. There is no reason for anemia to hold up patient's procedure. Patient can be supplemented with packed red blood cell transfusions as needed for hemoglobin less than 7 or if patient is symptomatic. G-CSF is added post op. CBC daily. To complete workup for patient's bicytopenia Dr. Gastelum is going to get a specimen of Bone marrow from sternum. For the bone marrow please order Histology, flow cytometry, AML and MVS FISH study. Current Visit: Yes Status: Chronic Priority: Medium Code(s): D53.9 - NUTRITIONAL ANEMIA, UNSPECIFIED SNOMED Code(s): 11430048
[2020-02-19 19:42] LABS: Hepatitis A Antibody IgM Non-Reactive (Non-Reactive); Hepatitis B Core IgM Non-Reactive (Non-Reactive); Hepatitis B Surface Antigen Non-Reactive (Non-Reactive); Hepatitis C IgG Antibody Non-Reactive (Non-Reactive)
[2020-02-19] MEDS: MONTELUKAST 10 MG TAB PO SCH (20:28)
--- NOTE | 2020-02-19 20:30 | P.HPIM ---
History of Present Illness H&P Date: 02/19/20 Chief Complaint: Chest pain History of presenting complaint: This is a very pleasant 79-year-old patient of Dr. Jacqueline Lorenzo. Patient is presented 4 days ago to [facility]. In the doctor's office she was found to have hemoglobin of 6.5 and sent to the hospital. Initial hemoglobin was 6.5 given 2 units of blood. Hemoglobin did come up to 9.2. Patient also was having chest pain at home. Ruled in for acute non-Q-wave SC. Yesterday morning patient underwent a cardiac catheterization found to have left main and triple-vessel disease. Patient was transferred here for coronary bypass. Patient also was found to have bicytopenia and being worked up by hematology. Which is B12 folate was normal. Patient may need a bone marrow biopsy done the road. She is little bit tired. Currently no cardiac symptoms. 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 Review of systems: GEN.: Tired EYES: None HEENT: None NECK: None RESPIRATORY: None CARDIOVASCULAR: Previous chest pain GASTROINTESTINAL: None GENITOURINARY: None MUSCULOSKELETAL: None LYMPHATICS: None HEMATOLOGICAL: None PSYCHIATRY: None NEUROLOGICAL: [Some left-sided weakness from prior polio Past medical history to include: Coronary affecting the left side, acute non-Q-wave SC with cardiac catheterization showing left main and triple-vessel disease, chronic epilepsy last seizure was many years ago, osteoarthritis of the hands and knees, bicytopenia Social history: Does not smoke or drink alcohol. Lives alone. Physical examination: VITAL SIGNS: [98.2, 62, 18, 128/55, 98% room air GENERAL: BMI 30.6, sitting up, awake. EYES: Pupils equal. Conjunctiva normal. HEENT: External appearance of nose and ears normal, oral cavity grossly normal. NECK: JVD not raised; masses not palpable. HEART: First and second heart sounds are normal; no edema. LUNGS: Respiratory rate normal; clear to auscultation. ABDOMEN: Soft, nontender, liver spleen not palpable, no masses palpable. PSYCH: Alert and oriented x3; mood and affect normal. NEUROLOGICAL: Cranial nerves grossly intact; no facial asymmetry, power and sensation grossly intact. LYMPHATICS: No lymph nodes palpable in the axilla and neck. INVESTIGATIONS, reviewed in the clinical context: White count 1.3 hemoglobin 8 platelets 350 potassium 4.5 bun 14 creatinine 0.51 TSH 2.2 LDL 69 2-D echocardiogram done at [facility] showed hypokinetic anterior wall and EF of 45% Cardiac catheterization done at [facility] showed left main disease and severe triple-vessel coronary artery disease Abdominal ultrasound-unremarkable Chest x-ray film personally reviewed by me-possibly some chronic scarring EKG tracing personally noted by me. Assessment: -Acute non-Q-wave myocardial infarction 5 days ago. 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 As patient is going for coronary bypass tomorrow was given another unit of blood. -Chronic epilepsy -Polio causing some weakness on the left side of the body -Primary osteoarthritis affecting the hands and knees Plan: Patient is on aspirin and beta manuel. Lipitor. We will get another unit of blood today. Hematology is also consulted. Bone marrow biopsy down the road. Spoke to him be from the cardiac stress 16. Patient's been boarded for surgery tomorrow. Care was discussed with the patient. Past Medical History Past Medical History: Coronary Artery Disease (CAD), Myocardial Infarction (SC), Pneumonia, Seizure Disorder Additional Past Medical History / Comment(s): polio, shingles History of Any Multi-Drug Resistant Organisms: None Reported Past Surgical History: Appendectomy, Hysterectomy, Tonsillectomy Additional Past Surgical History / Comment(s): hemmorhoid surgery x 3, breast biopsy x3 Past Anesthesia/Blood Transfusion Reactions: No Reported Reaction Past Psychological History: No Psychological Hx Reported Smoking Status: Never smoker Past Alcohol Use History: None Reported Past Drug Use History: None Reported - Past Family History Mother Family Medical History: Coronary Artery Disease (CAD) Additional Family Medical History / Comment(s): glucoma, ruptured aorta Father Family Medical History: Chest Pain / Angina, Coronary Artery Disease (CAD) Additional Family Medical History / Comment(s): CABG (Vineberg procedure at 56 years old) Sister(s) Family Medical History: Cancer Additional Family Medical History / Comment(s): Breast cancer with double mastectomy Medications and Allergies Home Medications Medication Instructions Recorded Confirmed Type Albuterol Sulfate [Albuterol 2 puff PO RT-Q4H PRN 02/18/20 02/18/20 History Sulfate Hfa] Alendronate Sodium [Fosamax] 70 mg PO FR 02/18/20 02/18/20 History Aspirin EC [Ecotrin] 325 mg PO DAILY 02/18/20 02/18/20 History Beclomethasone Dip 80 Mcg/Puff 2 puff INHALATION RT-BID 02/18/20 02/18/20 History [Qvar 80 mcg] Cholecalciferol [Vitamin D3 (25 1,000 unit PO DAILY 02/18/20 02/18/20 History Mcg = 1000 Iu)] Fexofenadine HCl [Jessica Allergy] 180 mg PO DAILY PRN 02/18/20 02/18/20 History Ipratropium-Albuterol Nebulize 3 ml INHALATION RT-QID PRN 02/18/20 02/18/20 History [Duoneb 0.5 mg-3 mg/3 ml Soln] Montelukast Sodium [Singulair] 10 mg PO HS 02/18/20 02/18/20 History PHENobarbital 32.4 mg PO BID 02/18/20 02/18/20 History Phenytoin Sodium Extended 100 mg PO TID 02/18/20 02/18/20 History [Dilantin] Allergies Allergy/AdvReac Type Severity Reaction Status Date / Time No Known Allergies Allergy Verified 02/18/20 18:11 Physical Exam Vitals: Vital Signs Temp Pulse Resp BP Pulse Ox 02/19/20 04:00 98.2 F 62 113/57 96 02/18/20 23:10 98 F 80 134/63 95 02/18/20 23:03 98.2 F 68 133/60 98 02/18/20 20:00 97.9 F 72 111/56 97 02/18/20 17:30 98.5 F 74 18 112/56 97 Intake and Output 02/18/20 02/19/20 02/19/20 22:59 06:59 14:59 Intake Total 240 Balance 240 Intake: Oral 240 Other: # Voids 1 3 2 Weight 58.86 kg 58.5 kg Results CBC & Chem 7: 02/19/20 07:18 02/19/20 07:18 Labs: Abnormal Lab Results - Last 24 Hours (Table) 02/19/20 02/19/20 Range/Units 07:18 07:18 RBC 2.23 L (3.80-5.40) m/uL Hgb 8.0 L (11.4-16.0) gm/dL Hct 26.0 L (34.0-46.0) % MCV 116.6 H (80.0-100.0) fL MCH 36.1 H (25.0-35.0) pg MCHC 30.9 L (31.0-37.0) g/dL RDW 23.6 H (11.5-15.5) % Macrocytosis Marked A Chloride 108 H (98-107) mmol/L Creatinine 0.51 L (0.52-1.04) mg/dL Calcium 7.9 L (8.4-10.2) mg/dL Total Protein 4.9 L (6.3-8.2) g/dL Albumin 2.9 L (3.5-5.0) g/dL Thrombosis Risk Factor Assmnt - Choose All That Apply Any of the Below Risk Factors Present?: No Other Risk Factors: No Each Risk Factor Represents 3 Points: Age 75 years or older Thrombosis Risk Factor Assessment Total Risk Factor Score: 3 Thrombosis Risk Factor Assessment Level: Very Low Risk
[2020-02-20 00:22] LABS: Hemoglobin A1C 5.6 % (4.0-6.0)
[2020-02-20] MEDS ORDERED: PROPOFOL 1,000 MG in EMPTY BAG 1 BAG IV PRN (05:00)
[2020-02-20] MEDS ORDERED: ceFAZolin 2 GM in SODIUM CHLORIDE 0.9% 30 ML IVPB ONE (05:00)
[2020-02-20] MEDS ORDERED: DILTIAZEM 125 MG in SODIUM CHLORIDE 0.9% 100 ML IV ONE (05:00)
[2020-02-20] MEDS ORDERED: MAGNESIUM SULFATE MG 500 MG/ML IV ONE (05:00)
[2020-02-20] MEDS ORDERED: CALCIUM CHLORIDE 100 MG/ML 10 ML SYRINGE IVP ONE (05:00)
[2020-02-20] MEDS ORDERED: CHLORHEXIDINE GLUCONATE 15 ML CUP MUCOUS MEM ONE ×2 (05:00)
[2020-02-20] MEDS ORDERED: NITROGLYCERIN-D5W PMX 25 MG/250 ML BTL IV ONE ×2 (05:00)
[2020-02-20] MEDS ORDERED: CARDIOPLEGIC SOLN (K+ 16 MEQ/L 1,000 ML with SOD BICARB SYR 8.4% (1 MEQ/ML) 20 ML, LIDO... PERFUSION NR ×3 (05:00)
[2020-02-20] MEDS ORDERED: ceFAZolin 2,000 MG in SODIUM CHLORIDE 0.9% 30 ML IVPB ONE ×6 (05:00)
[2020-02-20] MEDS ORDERED: INSULIN REGULAR 100 UNIT in SODIUM CHLORIDE 0.9% 100 ML IV ONE (05:00)
[2020-02-20] MEDS ORDERED: ALBUMIN HUMAN 5% 500 ML IVPB ONE ×6 (05:00)
[2020-02-20] MEDS ORDERED: PAPAVERINE 360 MG in SODIUM CHLORIDE 0.9% 90 ML IV ONE ×2 (05:00)
[2020-02-20] MEDS ORDERED: ASPIRIN 325 MG TAB PO ONE ×2 (05:00)
[2020-02-20] MEDS ORDERED: ALBUMIN HUMAN 25% 50 ML in EMPTY BAG 1 BAG IVPB ONE (05:00)
[2020-02-20] MEDS ORDERED: NITROGLYCERIN-D5W PMX 50 MG in DEXTROSE/WATER 1 250ML.BAG IV ONE (05:00)
[2020-02-20] MEDS ORDERED: CALCIUM CHLORIDE 100 MG/ML 10 ML SYRINGE IV ONE (05:00)
[2020-02-20] MEDS ORDERED: HEPARIN SODIUM,PORCINE 5,000 UNIT in SODIUM CHLORIDE 0.9% 500 ML 500 ML IV ONE ×4 (05:00)
[2020-02-20] MEDS ORDERED: CLEVIDIPINE BUTYRATE 25 MG in EMPTY BAG 1 BAG IV ONE (05:00)
[2020-02-20] MEDS ORDERED: ALBUMIN HUMAN 5% 500 ML in EMPTY BAG 1 BAG IVPB ONE ×6 (05:00)
[2020-02-20] MEDS ORDERED: MAGNESIUM SULFATE SYG 4.06 MEQ/ML SYRINGE IV ONE (05:00)
[2020-02-20] MEDS ORDERED: DILTIAZEM 125 MG in SODIUM CHLORIDE 0.9% 100 ML IV SCH (05:00)
[2020-02-20] MEDS ORDERED: PROTAMINE SULFATE 10 MG/ML 25 ML VIAL IV ONE ×2 (05:00)
[2020-02-20] MEDS ORDERED: LACTATED RINGERS 1,000 ML IV SCH (05:00)
[2020-02-20] MEDS ORDERED: INSULIN REGULAR 100 UNIT in SODIUM CHLORIDE 0.9% 100 ML IV SCH ×2 (05:00→13:00)
[2020-02-20] MEDS ORDERED: PROPOFOL 1,000 MG/100 ML VIAL IV ONE (05:00)
[2020-02-20] MEDS ORDERED: CLEVIDIPINE BUTYRATE 25 MG in EMPTY BAG 1 BAG IV SCH (05:00)
[2020-02-20] MEDS ORDERED: ALBUMIN HUMAN 25% 50 ML IV ONE ×2 (05:00)
[2020-02-20] MEDS ORDERED: METOPROLOL TARTRATE 12.5 MG TAB PO ONE ×2 (05:00)
[2020-02-20] MEDS ORDERED: LACTATED RINGERS 1,000 ML IV ONE ×2 (05:00→06:15)
[2020-02-20] MEDS ORDERED: PHENYLEPHRINE 10 MG/ML VIAL IV ONE ×2 (05:00)
[2020-02-20] MEDS ORDERED: TRANEXAMIC ACID 2,000 MG in SODIUM CHLORIDE 0.9% 80 ML IV ONE ×4 (05:00)
[2020-02-20] MEDS ORDERED: NOREPINEPHRINE 4 MG in SODIUM CHLORIDE 0.9% 250 ML IV ONE (05:00)
[2020-02-20] MEDS ORDERED: HEPARIN SODIUM 1,000 UN/ML (10ML VL) IV ONE ×2 (05:00)
[2020-02-20] MEDS ORDERED: ATORVASTATIN 10 MG TAB PO ONE ×2 (05:00)
[2020-02-20] MEDS ORDERED: ceFAZolin 1,000 MG in SODIUM CHLORIDE 0.9% IRRIGATIO 1,000 ML IRRIGATION ONE ×2 (05:00)
[2020-02-20] MEDS ORDERED: PHENYLEPHRINE 40 MG in SODIUM CHLORIDE 0.9% 250 ML IV ONE ×4 (05:00)
[2020-02-20] MEDS ORDERED: PROTAMINE SULFATE 250 MG in EMPTY BAG 1 BAG IV ONE (05:00)
[2020-02-20] MEDS ORDERED: MANNITOL 25% 12.5 GM/50 ML VIAL IV ONE ×3 (05:00)
[2020-02-20] MEDS ORDERED: NOREPINEPHRINE 4 MG in SODIUM CHLORIDE 0.9% 250 ML IV SCH (05:00)
[2020-02-20] MEDS ORDERED: CARDIOPLEGIC SOLN (K+ 16 MEQ/L 1,000 ML with SODIUM BICARB (1 MEQ/ML) 20 ML, LIDOCAINE ... PERFUSION ONE ×9 (05:00)
[2020-02-20] MEDS ORDERED: NITROGLYCERIN-D5W PMX 50 MG in DEXTROSE/WATER 1 250ML.BAG IV SCH ×2 (05:00→12:14)
[2020-02-20] MEDS ORDERED: SODIUM BICARB 8.4% 50 ML SYR (1 MEQ/ML) IV ONE ×2 (05:00)
[2020-02-20] MEDS: PHENYTOIN SODIUM EXTENDED 100 MG CAP PO SCH ×3 (05:51→22:35)
[2020-02-20 06:45] LABS: Anisocytosis Marked; Basophils % (A) 1 %; Eosinophils # (A) 0.2 k/uL (0-0.7); Eosinophils % (A) 6 %; HGB 10.4 gm/dL (11.4-16.0); Hypochromasia Slight; Lymphocytes # (A) 0.6 k/uL (1.0-4.8); Lymphocytes % (A) 26 %; MCH 36.8 pg (25.0-35.0); MCHC 32.6 g/dL (31.0-37.0); Macrocytosis Marked; Mean Platelet Volume 8.5; Monocytes # (A) 0.2 k/uL (0-1.0); Monocytes % (A) 7 %; Neutrophils # (A) 1.5 k/uL (1.3-7.7); Neutrophils % (A) 59 %; Platelet Count 372 k/uL (150-450); Poikilocytosis Slight; RBC 2.83 m/uL (3.80-5.40); WBC 2.5 k/uL (3.8-10.6)
[2020-02-20] MEDS ORDERED: ALBUMIN HUMAN 5% (25gm) 500 ML VIAL IVPB ONE (07:56)
[2020-02-20] MEDS ORDERED: MAGNESIUM SULFATE 4 MEQ/ML 10ML VIAL ONE (07:56)
[2020-02-20] MEDS ORDERED: VECURONIUM 10 MG VIAL IV ONE (07:56)
[2020-02-20] MEDS ORDERED: PROPOFOL 10 MG/ML 20 ML VIAL IV ONE (07:56)
[2020-02-20] MEDS ORDERED: fentaNYL (PF) 50 MCG/ML 50 ML VIAL ONE (07:56)
[2020-02-20] MEDS ORDERED: PHENYLEPHRINE-0.9% NACL SYG 1 MG/10 ML SYRINGE ONE (07:56)
[2020-02-20] MEDS ORDERED: NITROGLYCERIN-D5W PMX 50 MG/250 ML BOTTLE IV ONE (07:56)
[2020-02-20] MEDS ORDERED: SODIUM CHLORIDE 0.9% IRRIG 1,000 ML BTL IRRIGATION ONE (07:56)
[2020-02-20] MEDS ORDERED: MIDAZOLAM 2 MG/2 ML VIAL ONE (07:56)
[2020-02-20] MEDS ORDERED: fentaNYL (PF) 50 MCG/ML 2 ML AMP ONE ×2 (07:56→13:24)
[2020-02-20] MEDS ORDERED: PROTAMINE SULFATE 10 MG/ML 5 ML VIAL IV ONE (07:56)
[2020-02-20] MEDS ORDERED: HEPARIN SODIUM,PORCINE 10,000 UNIT/ML 1 ML VIAL ONE (07:56)
[2020-02-20 08:47] LABS: ABG Base Excess 0.4 mmol/L; ABG Glucose Whole Blood 103 mg/dL (75-99); ABG HCO3 24 mmol/L (21-25); ABG Hematocrit 26 % (34.0-46.0); ABG Ionized Calcium 4.4 mg/dL (4.5-5.3); ABG Lactic Acid Whole Blood 0.6 mmol/L (0.5-1.6); ABG PCO2 36 mmHg (35-45); ABG PH 7.44 (7.35-7.45); ABG PO2 224 mmHg (83-108); ABG Potassium Whole Blood 4.1 mmol/L (3.4-4.5); ABG Sodium Whole Blood 139 mmol/L (135-146); ABG TCO2 26 mmol/L (19-24)
[2020-02-20] MEDS: FLUTICASONE 110 MCG INHALER INHALATION SCH ×2 (08:51→19:29)
[2020-02-20 10:17] LABS: ABG Base Excess -1.1 mmol/L; ABG Glucose Whole Blood 109 mg/dL (75-99); ABG HCO3 23 mmol/L (21-25); ABG Ionized Calcium 4.3 mg/dL (4.5-5.3); ABG Lactic Acid Whole Blood 0.6 mmol/L (0.5-1.6); ABG PCO2 37 mmHg (35-45); ABG PH 7.41 (7.35-7.45); ABG PO2 243 mmHg (83-108); ABG Sodium Whole Blood 139 mmol/L (135-146); ABG TCO2 25 mmol/L (19-24)
[2020-02-20 10:23] LABS: Reticulocyte % 1.9 % (0.5-2.0)
[2020-02-20 10:46] LABS: ABG Base Excess -2.4 mmol/L; ABG Glucose Whole Blood 119 mg/dL (75-99); ABG HCO3 23 mmol/L (21-25); ABG Ionized Calcium 4.1 mg/dL (4.5-5.3); ABG Oxygen Saturation 99.9 % (94-97); ABG PCO2 39 mmHg (35-45); ABG PH 7.37 (7.35-7.45); ABG PO2 247 mmHg (83-108); ABG Sodium Whole Blood 139 mmol/L (135-146); ABG TCO2 24 mmol/L (19-24)
[2020-02-20 11:19] LABS: ABG Glucose Whole Blood 123 mg/dL (75-99); ABG HCO3 23 mmol/L (21-25); ABG Ionized Calcium 4.2 mg/dL (4.5-5.3); ABG Lactic Acid Whole Blood 0.8 mmol/L (0.5-1.6); ABG PCO2 37 mmHg (35-45); ABG PH 7.41 (7.35-7.45); ABG PO2 264 mmHg (83-108); ABG Potassium Whole Blood 5.2 mmol/L (3.4-4.5); ABG Sodium Whole Blood 137 mmol/L (135-146); ABG TCO2 25 mmol/L (19-24)
[2020-02-20 12:08] LABS: ABG Base Excess -1.6 mmol/L; ABG Glucose Whole Blood 136 mg/dL (75-99); ABG HCO3 23 mmol/L (21-25); ABG Hematocrit 25 % (34.0-46.0); ABG Ionized Calcium 4.2 mg/dL (4.5-5.3); ABG Lactic Acid Whole Blood 1.3 mmol/L (0.5-1.6); ABG Oxygen Saturation 99.7 % (94-97); ABG PCO2 38 mmHg (35-45); ABG PH 7.39 (7.35-7.45); ABG PO2 186 mmHg (83-108); ABG Sodium Whole Blood 138 mmol/L (135-146); ABG TCO2 24 mmol/L (19-24)
[2020-02-20 12:10] LABS: ABG Hematocrit 21 % (34.0-46.0)
[2020-02-20 12:11] LABS: ABG Hematocrit 23 % (34.0-46.0)
[2020-02-20 12:11] LABS: ABG Hematocrit 22 % (34.0-46.0)
[2020-02-20] MEDS ORDERED: Magnesium Replacement Protocol 1 EACH MISC MISCELLANE PRN (12:14)
[2020-02-20] MEDS ORDERED: hydrALAZINE HCL 20 MG/ML 1 ML VIAL IVP PRN (12:14)
[2020-02-20] MEDS ORDERED: Phosphorus Replacement Protoco 1 EACH MISC MISCELLANE PRN (12:14)
[2020-02-20] MEDS ORDERED: IPRATROPIUM-ALBUTEROL 3 ML NEB INHALATION PRN (12:14)
[2020-02-20] MEDS ORDERED: PROPOFOL 1,000 MG in EMPTY BAG 1 BAG IV SCH (12:14)
[2020-02-20] MEDS ORDERED: METOCLOPRAMIDE 5 MG/ML 2 ML VIAL IVP PRN (12:14)
[2020-02-20] MEDS ORDERED: Potassium Replacement Protocol 1 EACH MISC MISCELLANE PRN (12:14)
[2020-02-20] MEDS ORDERED: BENZOCAINE/MENTHOL LOZENG 1 EACH LOZENGE MUCOUS MEM PRN (12:14)
[2020-02-20] MEDS ORDERED: DEXTROSE 5% IN WATER 100 ML with AMIODARONE 150 MG IV PRN (12:14)
[2020-02-20] MEDS ORDERED: AMIODARONE 360 MG in DEXTROSE 5% IN WATER 200 ML IV PRN ×2 (12:14)
[2020-02-20] MEDS ORDERED: AMIODARONE 300 MG in DEXTROSE 5% IN WATER 250 ML IV PRN ×2 (12:14)
[2020-02-20] MEDS ORDERED: CALCIUM GLUCONATE 2 GM in SODIUM CHLORIDE 0.9% 100 ML IVPB PRN (12:14)
--- NOTE | 2020-02-20 12:47 | P.OP ---
Date of Procedure: 02/20/20 Preoperative Diagnosis: Coronary artery disease Postoperative Diagnosis: Same Procedure(s) Performed: Off-pump CABG 3 with AGRAWAL to LAD, saphenous vein grafts to second obtuse marginal and posterior descending coronary artery with endovascular vein harvest , left atrial appendage exclusion with a 35 mm AtriCure clip and aspirate and biopsy of the sternal bone marrow. Implants: 35mm AtriCure clip Anesthesia: GETA Surgeon: Robel Gastelum Parts Sales Representative #1: Pedrito Rasmussen Parts Sales Representative #2: Lawrence Bauman Estimated Blood Loss (ml): 200 IV fluids (ml): 1,500 Urine output (ml): 600 Pathology: other (Aspirate and biopsy of sternal marrow) Condition: stable Disposition: ICU Indications for Procedure: 79-year-old female with long-standing history of anemia was sent to the emergency department from her physician's office for a hemoglobin of 6.2. She seen in the emergency department [facility] and admitted and transfused 2 units of blood. Her troponins were noted to be elevated. She underwent cardiac catheterization by Dr. VERNON Crooks and found to have severe left main triple-vessel disease. She was asymptomatic from a cardiac standpoint. He was transferred to [facility] and evaluated for surgery. She was anemic and neutropenic but cleared for surgery by Dr. Jara. Urgent CABG was requested by Dr. VERNON Crooks and she was scheduled for surgery. Operative Findings: There was moderate LVH. The anterior apical wall was hypokinetic. Coronary targets were diffusely diseased with calcific disease. Proximal LAD was heavily calcified out to the junction of the middle and distal third of the vessel. The distal LAD was very small. The diagonal branches were also very small. First obtuse marginal was heavily calcified and diffusely diseased. Second obtuse marginal was a good target. Posterior descending was diffusely diseased but graftable. Description of Procedure: The patient was brought to the operating room, placed supine on the operating table, anesthetized and intubated. Monitoring lines including arterial line and right IJ Skytop-Octaviano catheter had been placed in the preop holding area. The anterior torso lower extremities and left upper extremity were sterilely prepped and draped. The left greater saphenous vein was taken from mid calf to groin and was a remarkably good conduit. It was harvested with endovascular vein harvest technique. Simultaneous sternotomy was performed. The bone marrow in the manubrial region was aspirated and the aspirate given to the pathology department for preparation of slides. Curet was used to obtain bone marrow samples from both the sternal body and the manubrium and these were also be given to the pathology For appropriate preparation. Orders for studies for the bone marrow were obtained through Dr. Jara. The left hemisternum was retracted upwards and the left internal mammary artery harvested on a vascularized pedicle, left intact on its origin from the subclavian ligated and divided distally. It was left intact on its origin from the subclavian proximally. There was a good conduit although fairly small at the distal end. Left pleural space was drained with 32-Solomon Islander chest tube. Standard sternal retractor was placed. Pericardium was opened in the midline and the heart exposed with pericardial sutures. Patient was systemically heparinized and ACT is maintained greater than 250 during grafting. The LAD was first explored. The LAD was completely occluded at the junction of the middle and distal third beyond this it was a small 1 mm vessel but relatively disease-free. The diagonal branch came off at the level of this occlusion and this was also a very small target. Proximally the artery was very heavily calcified. There was a single soft spot which was opened and explored but we could not pass a 1 mm probe either proximally or distally here and the vessel was closed. That point it was opted just to graft the distal LAD. The LAD was stabilized with a suction stabilization device and opened and blood flow control with a 1 mm flow through. Size match between the distal AGRAWAL and the distal LAD was good. Anastomosis was constructed with running 8-0 Prolene suture. Completion anastomosis the flow through was removed effectively probing the proximal distal portion anastomosis. Suture was tied with good resultant hemostasis. Inflow was open the morrissey filled well and there was no evidence of kinking or narrowing of the conduit. The SAMUEL pedicle was tacked surrounding epicardium with 60 silks. Next the saphenous vein was divided into 2 portions one for the obtuse marginal and one for the PDA. PDA graft was loaded on passport anastomotic connector and connected to the proximal ascending aorta just above the level of the sinotubular junction in the midline. Was brought around the right side of the heart and the inferior wall the heart was exposed. PDA was stabilized with suction stabilization and opened in a soft spot. It was diffusely diseased but did accept a 1.5 mm probe distally. Blood flow was controlled 1.5 mm flow through. Anastomosis of the saphenous vein to the PDA was performed with running 7-0 Prolene suture. On completion anastomosis the flow through was removed effectively probing the proximal distal portion of the anastomosis. Suture was tied with good result and hemostasis inflow was open. Graft was of good length and noted to lay well without kinking. Next the second piece of saphenous vein was loaded on a second passport anastomotic connector and connected to the ascending aorta just to the left of midline. Blood flow was controlled with a bulldog clamp. The lateral wall of the heart was exposed. First obtuse marginal was a heavily calcified vessel with diffuse disease all the way distally. Second obtuse marginal vessel was good target and was grafted fairly proximally. Prior to grafting we placed a 35 mm AtriCure clip at the base of the left atrial appendage. Then stabilize the obtuse marginal and opened it and blood flow was controlled with a 1.5 mm flow through. It was a 1.5 mm only mildly diseased vessel. An side anastomosis between the saphenous vein and the second obtuse marginal was performed with running 7-0 Prolene suture. Completion anastomosis flow through was removed 50 probe the proximal distal portion of the anastomosis. Suture was tied with good result and hemostasis. Inflow was open. The heart was lowered into anatomic position. This graft was also of good length and noted to lay well without kinking. Heparin was reversed with protamine and hemostasis obtained throughout. The right pleural space was drained with a 32-Sol[place] Islander chest tube. Mediastinum was drained with a 36-Sol[place] Islander chest tube. After assuring good hemostasis the chest was irrigated with antibiotic solution and the sternum was closed with 6 Mersilene band's. Fascia was closed with 0 Ethibond. Subcutaneous and subcuticular layers with layers of Vicryl suture in both the leg and chest. Dry sterile dressings were applied and the patient was transferred to ICU in stable condition on no inotropic support. Patient did receive 1 unit of packed red blood cells intraoperatively for a afbian hemoglobin of 6.5.
[2020-02-20 13:04] LABS: Glucose,Whole Blood 144 mg/dL (75-99)
[2020-02-20] MEDS: IPRATROPIUM-ALBUTEROL 3 ML NEB INHALATION SCH ×4 (13:08→19:28)
[2020-02-20 13:11] LABS: Anisocytosis Marked; Basophils % (A) 0 %; Eosinophils # (A) 0.1 k/uL (0-0.7); Eosinophils % (A) 3 %; HCT 24.7 % (34.0-46.0); Hypochromasia Moderate; Lymphocytes # (A) 0.6 k/uL (1.0-4.8); Lymphocytes % (A) 22 %; MCH 35.4 pg (25.0-35.0); MCHC 32.2 g/dL (31.0-37.0); Macrocytosis Marked; Mean Platelet Volume 8.9; Monocytes # (A) 0.1 k/uL (0-1.0); Monocytes % (A) 3 %; Neutrophils % (A) 71 %; Platelet Count 206 k/uL (150-450); Poikilocytosis Slight; RBC 2.25 m/uL (3.80-5.40); WBC 2.8 k/uL (3.8-10.6)
[2020-02-20 13:13] LABS: Ionized Calcium 4.6 mg/dL (4.5-5.3)
[2020-02-20 13:18] LABS: INR 1.4 (<1.2); Partial Thromboplastin Time 31.2 sec (22.0-30.0); Prothrombin Time 13.9 sec (9.0-12.0)
[2020-02-20 13:19] LABS: RDW 25.3 % (11.5-15.5)
[2020-02-20] MEDS ORDERED: fentaNYL (PF) 50 MCG/ML 2 ML AMP IVP ONE (13:20)
[2020-02-20 13:24] LABS: ALT 30 U/L (4-34); AST 39 U/L (14-36); African American GFR (CKD) >90 (>60 ml/min/1.73 sqM); Albumin 2.5 g/dL (3.5-5.0); Alkaline Phosphatase 35 U/L (38-126); Anion Gap 3 mmol/L; Blood Urea Nitrogen 12 mg/dL (7-17); Calcium 6.9 mg/dL (8.4-10.2); Carbon Dioxide 24 mmol/L (22-30); Chloride 109 mmol/L (98-107); Glucose 121 mg/dL (74-99); Magnesium 2.4 mg/dL (1.6-2.3); Non-African American GFR(CKD) >90 (>60 ml/min/1.73 sqM); Potassium 3.6 mmol/L (3.5-5.1); Sodium 136 mmol/L (137-145); Total Bilirubin 0.6 mg/dL (0.2-1.3); Total Protein 3.9 g/dL (6.3-8.2)
[2020-02-20 13:27] LABS: ABG Base Excess -1.7 mmol/L; ABG HCO3 24 mmol/L (21-25); ABG PCO2 43 mmHg (35-45); ABG PH 7.35 (7.35-7.45); ABG PO2 >400 mmHg (83-108); ABG TCO2 25 mmol/L (19-24)
[2020-02-20] MEDS: LACTATED RINGERS 1,000 ML IV SCH (13:41)
[2020-02-20] MEDS ORDERED: DEXMEDETOMIDINE/0.9% NACL(PMX) 400 MCG in EMPTY BAG 1 BAG IV SCH (13:45)
--- NOTE | 2020-02-20 13:51 | XR ---
EXAMINATION TYPE: XR chest 1V portable DATE OF EXAM: 02/20/2020 Comparison: 02/19/2020 Clinical History: 79-year-old female Post Operative Cardiac Surgery Findings: ET tube is satisfactory. Right IJ Warren-Octaviano catheter with tip in the main pulmonary outflow tract. Me diastinal drain and bilateral chest tubes redemonstrated. No appreciable pneumothorax. Some patchy lo wer lung densities likely areas of atelectasis. Pulmonary vasculature within normal limits. Heart stanley its of normal in size. Post-CABG clips are noted. Impression: Postsurgical change with patchy lower lung areas of atelectasis.
[2020-02-20] MEDS: THIAMINE 100 MG TAB PO SCH (13:58)
[2020-02-20] MEDS: PHENobarbital 32.4 MG TAB PO SCH ×2 (13:58→22:35)
[2020-02-20] MEDS: FOLIC ACID 1 MG TAB PO SCH (13:58)
[2020-02-20] MEDS: CLEVIDIPINE BUTYRATE 25 MG in EMPTY BAG 1 BAG IV SCH (14:04)
[2020-02-20] MEDS: ACETAMINOPHEN IV (For NPO) 1,000 MG in EMPTY BAG 1 BAG IVPB SCH ×2 (14:16→18:16)
[2020-02-20 14:40] LABS: Glucose,Whole Blood 157 mg/dL (75-99)
[2020-02-20] MEDS: ALBUMIN HUMAN 5% 250 ML in EMPTY BAG 1 BAG IVPB PRN (15:15)
[2020-02-20 15:18] LABS: Glucose,Whole Blood 159 mg/dL (75-99)
[2020-02-20 15:30] LABS: Anisocytosis Marked; HCT 26.5 % (34.0-46.0); HGB 8.5 gm/dL (11.4-16.0); Hypochromasia Slight; MCH 34.7 pg (25.0-35.0); MCV 108.4 fL (80.0-100.0); Macrocytosis Marked; Mean Platelet Volume 8.4; Platelet Count 263 k/uL (150-450); Poikilocytosis Slight; RBC 2.44 m/uL (3.80-5.40); RDW 24.9 % (11.5-15.5); WBC 3.3 k/uL (3.8-10.6)
[2020-02-20 15:55] LABS: ABG Base Excess -2.8 mmol/L; ABG HCO3 23 mmol/L (21-25); ABG PCO2 42 mmHg (35-45); ABG PH 7.34 (7.35-7.45); ABG PO2 181 mmHg (83-108); ABG TCO2 24 mmol/L (19-24); Allen Test Performed? Yes
[2020-02-20 16:02] LABS: ABG Oxygen Saturation 99.5 % (94-97)
[2020-02-20 16:49] LABS: Glucose,Whole Blood 116 mg/dL (75-99)
[2020-02-20 17:06] LABS: Band Neutrophils % 2 %; Eosinophils # (M) 0.03 k/uL (0-0.7); Lymphocytes # (M) 0.53 k/uL (1.0-4.8); Neutrophils % (M) 75 %; Nucleated Red Blood Cells 0 /100 WBC (0-0); Total Cells Counted 100
[2020-02-20 17:50] LABS: Glucose,Whole Blood 115 mg/dL (75-99)
[2020-02-20] MEDS ORDERED: KETOROLAC 30 MG/ML 1 ML VIAL IVP SCH (18:00)
[2020-02-20 18:45] LABS: Glucose,Whole Blood 121 mg/dL (75-99)
--- NOTE | 2020-02-20 20:06 | P.PN ---
Progress Note - Text Progress Note Date: 02/20/20 Chief Complaint: Chest pain History of presenting complaint: This is a very pleasant 79-year-old patient of Dr. Jacqueline Lorenzo. Patient is presented 4 days ago to [facility]. In the doctor's office she was found to have hemoglobin of 6.5 and sent to the hospital. Initial hemoglobin was 6.5 given 2 units of blood. Hemoglobin did come up to 9.2. Patient also was having chest pain at home. Ruled in for acute non-Q-wave NE. Yesterday morning patient underwent a cardiac catheterization found to have left main and triple-vessel disease. Patient was transferred here for coronary bypass. Patient also was found to have bicytopenia and being worked up by hematology. Which is B12 folate was normal. Patient may need a bone marrow biopsy done the road. She is little bit tired. Currently no cardiac symptoms. 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 Today-patient underwent triple-vessel bypass. Extubated around 4 PM. In the ICU. 3 chest tubes. Current drips include insulin, cleviprex, nitroglycerin. Patient tolerated diet after procedure. Review of systems: Was done for constitutional, cardiovascular, GI, pulmonary. relevant finding as above Active Medications Hydrocodone Bitart/Acetaminophen ([place]augh 5-325) 2 each PO Q4HR PRN PRN Reason: Severe Pain Hydrocodone Bitart/Acetaminophen ([place]augh 5-325) 1 each PO Q4HR PRN PRN Reason: Moderate Pain Albuterol/Ipratropium (Duoneb 0.5 Mg-3 Mg/3 Ml Soln) 3 ml INHALATION RT-Q2H PRN PRN Reason: Shortness Of Breath Or Wheezing Albuterol/Ipratropium (Duoneb 0.5 Mg-3 Mg/3 Ml Soln) 3 ml INHALATION RT-QID [facility] Last Admin: 02/20/20 19:28 Dose: 3 ml Documented by: Aspirin (Aspirin) 325 mg PO DAILY [facility] Atorvastatin Calcium (Lipitor) 40 mg PO DAILY [facility] Benzocaine/Menthol (Cepacol Lozenge) 1 each MUCOUS MEM Q2H PRN PRN Reason: Sore Throat Bisacodyl (Dulcolax) 10 mg RECTAL DAILY PRN PRN Reason: Constipation Clopidogrel Bisulfate (Plavix) 75 mg PO DAILY [facility] Fluticasone Propionate (Flovent 110 Mcg Inhaler) 2 puff INHALATION RT-BID [facility] Last Admin: 02/20/20 19:29 Dose: 2 puff Documented by: Folic Acid (Folic Acid) 1 mg PO DAILY@1200 [facility] Last Admin: 02/20/20 13:58 Dose: Not Given Documented by: Heparin Sodium (Porcine) (Heparin) 5,000 unit SQ Q8HR [facility] Hydralazine HCl (Apresoline) 10 mg IVP Q1H PRN PRN Reason: Blood Pressure - High Amiodarone HCl 150 mg/ (Dextrose/Water) 103 mls @ 618 mls/hr IV .Q10M PRN; Protocol PRN Reason: A.FIB/FLUTTER Amiodarone HCl 360 mg/ (Dextrose/Water) 200 mls @ 33.333 mls/hr IV .Q6H PRN; Protocol PRN Reason: A.FIB/FLUTTER Amiodarone HCl 300 mg/ (Dextrose/Water) 250 mls @ 25 mls/hr IV .Q10H PRN; Protocol PRN Reason: A.FIB/FLUTTER Albumin Human 250 ml/ IV (Solution) 250 mls @ 250 mls/hr IVPB Q1HR PRN PRN Reason: For Volume Stop: 02/22/20 12:15 Last Admin: 02/20/20 15:15 Dose: 250 mls/hr Documented by: Clevidipine 25 mg/ IV Solution 50 mls @ 2 mls/hr IV .Q24H [facility]; Protocol Last Admin: 02/20/20 14:04 Dose: 1 mg/hr, 2 mls/hr Documented by: Nitroglycerin/Dextrose 50 mg/ (IV Solution) 250 mls @ 1.5 mls/hr IV .Q24H [facility] Last Admin: 02/20/20 13:40 Dose: 5 mcg/min, 1.5 mls/hr Documented by: Lactated Ringer's (Lactated Ringers) 1,000 mls @ 50 mls/hr IV .Q20H [facility] Last Admin: 02/20/20 13:41 Dose: 50 mls/hr Documented by: Cefazolin Sodium 2 gm/ Sodium (Chloride) 50 mls @ 100 mls/hr IVPB Q8HR [facility] Stop: 02/21/20 08:29 Last Admin: 02/20/20 16:40 Dose: 100 mls/hr Documented by: Insulin Human Regular 100 unit (/ Sodium Chloride) 101 mls @ 0 mls/hr IV .Q0M [facility]; Protocol Last Titration: 02/20/20 16:48 Dose: 1.49 units/hr, 1.5 mls/hr Documented by: Magnesium Hydroxide (Milk Of Magnesia) 2,400 mg PO BID PRN PRN Reason: Constipation Metoclopramide HCl (Reglan) 10 mg IVP Q4H PRN PRN Reason: Nausea And Vomiting Metoprolol Tartrate (Lopressor) 12.5 mg PO BID [facility] Miscellaneous Information (Potassium Per Protocol) 1 each MISCELLANE DAILY PRN; Protocol PRN Reason: Per Protocol Miscellaneous Information (Magnesium Per Protocol) 1 each MISCELLANE DAILY PRN; Protocol PRN Reason: Per Protocol Miscellaneous Information (Phosphorus Per Protocol) 1 each MISCELLANE DAILY PRN; Protocol PRN Reason: Per Protocol Montelukast Sodium (Singulair) 10 mg PO [facility] Last Admin: 02/19/20 20:28 Dose: 10 mg Documented by: Mupirocin (Bactroban Oint) 1 applic NASAL BID [facility] Stop: 02/23/20 21:01 Ondansetron HCl (Zofran) 4 mg IVP Q6HR PRN PRN Reason: Nausea And Vomiting Oxycodone HCl (Oxyir) 10 mg PO Q4H PRN PRN Reason: Severe Pain Stop: 02/20/20 23:50 Oxycodone HCl (Oxyir) 5 mg PO Q4H PRN PRN Reason: Moderate Pain Stop: 02/20/20 23:50 Pantoprazole Sodium (Protonix) 40 mg IVP DAILY [facility] Phenobarbital (Luminal) 32.4 mg PO BID [facility] Last Admin: 02/20/20 13:58 Dose: Not Given Documented by: Phenytoin Sodium (Dilantin) 100 mg PO TID [facility] Last Admin: 02/20/20 16:40 Dose: Not Given Documented by: Senna/Docusate Sodium (Senokot-S) 2 each PO HS [facility] Sodium Chloride (Saline Flush) 10 ml IV BID [facility] Thiamine HCl (Vitamin B-1) 100 mg PO DAILY@1200 [facility] Last Admin: 02/20/20 13:58 Dose: Not Given Documented by: Physical examination: VITAL SIGNS: 76, 20, 121/60, 96% on 2 L GENERAL: Propped up in bed, tired but arousable EYES: Pupils equal. Conjunctiva normal. HEENT: External appearance of nose and ears normal, oral cavity grossly normal. NECK: JVD not raised; masses not palpable. HEART: First and second heart sounds are normal; no edema. LUNGS: Respiratory rate increased; decreased breath sounds, patient is 3 chest tubes ABDOMEN: Soft, nontender, liver spleen not palpable, no masses palpable. PSYCH: Tired but able to answer questions INVESTIGATIONS, reviewed in the clinical context: White count 3.3 hemoglobin 8.5 Previous testing White count 1.3 hemoglobin 8 platelets 350 potassium 4.5 bun 14 creatinine 0.51 TSH 2.2 LDL 69 2-D echocardiogram done at [facility] showed hypokinetic anterior wall and EF of 45% Cardiac catheterization done at [facility] showed left main disease and severe triple-vessel coronary artery disease Abdominal ultrasound-unremarkable Chest x-ray film personally reviewed by me-possibly some chronic scarring EKG tracing personally noted by me. Assessment: -Triple-vessel coronary bypass today on February 19 -Acute non-Q-wave myocardial infarction 5 days ago. 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 As patient is going for coronary bypass tomorrow was given another unit of blood. -Chronic epilepsy -Polio causing some weakness on the left side of the body -Primary osteoarthritis affecting the hands and knees Plan: Patient currently is 3 chest tubes. Drips include insulin, nitroglycerin, cleviprex. Care was discussed with the patient did other medications to continue. Will follow
[2020-02-20 20:12] LABS: Glucose,Whole Blood 139 mg/dL (75-99)
[2020-02-20 20:38] LABS: Anisocytosis Marked; Basophils % (A) 0 %; Eosinophils % (A) 1 %; HCT 24.7 % (34.0-46.0); HGB 8.1 gm/dL (11.4-16.0); Hypochromasia Slight; Lymphocytes # (A) 0.2 k/uL (1.0-4.8); Lymphocytes % (A) 5 %; MCH 36.2 pg (25.0-35.0); MCV 109.5 fL (80.0-100.0); Macrocytosis Marked; Mean Platelet Volume 8.5; Monocytes # (A) 0.2 k/uL (0-1.0); Monocytes % (A) 4 %; Neutrophils # (A) 3.9 k/uL (1.3-7.7); Neutrophils % (A) 89 %; Platelet Count 264 k/uL (150-450); Poikilocytosis Slight; RBC 2.25 m/uL (3.80-5.40); WBC 4.4 k/uL (3.8-10.6)
[2020-02-20] MEDS ORDERED: MUPIROCIN 2% OINT 22 GM TUBE NASAL SCH (21:00)
[2020-02-20 21:02] LABS: RDW 25.3 % (11.5-15.5)
[2020-02-20 21:22] LABS: Glucose,Whole Blood 132 mg/dL (75-99)
[2020-02-20] MEDS ORDERED: KETOROLAC 30 MG/ML 1 ML VIAL IVP STA (21:25)
[2020-02-20] MEDS: HEPARIN SODIUM,PORCINE 5,000 UNIT/ML 1 ML VIAL SQ SCH (21:33)
[2020-02-20 22:09] LABS: Glucose,Whole Blood 105 mg/dL (75-99)
[2020-02-20 22:31] LABS: Ovalocytes Present
[2020-02-20 22:35] LABS: Polychromasia Present
[2020-02-20] MEDS: MONTELUKAST 10 MG TAB PO SCH (22:35)
[2020-02-20 23:03] LABS: Glucose,Whole Blood 120 mg/dL (75-99)
[2020-02-20] MEDS ORDERED: HYDROcodone/APAP 5-325MG 1 EACH TAB PO PRN (23:50)
[2020-02-20 23:56] LABS: Glucose,Whole Blood 137 mg/dL (75-99)
[2020-02-21] MEDS: HEPARIN SODIUM,PORCINE 5,000 UNIT/ML 1 ML VIAL SQ SCH ×4 (00:08→23:57)
[2020-02-21] MEDS: HYDROcodone/APAP 5-325MG 1 EACH TAB PO PRN ×4 (00:34→20:37)
[2020-02-21 01:00] LABS: Glucose,Whole Blood 128 mg/dL (75-99)
[2020-02-21 02:31] LABS: Glucose,Whole Blood 91 mg/dL (75-99)
[2020-02-21 04:12] LABS: Glucose,Whole Blood 99 mg/dL (75-99)
[2020-02-21] MEDS: ALBUMIN HUMAN 5% 250 ML in EMPTY BAG 1 BAG IVPB PRN ×2 (04:21→09:14)
[2020-02-21 04:52] LABS: Anisocytosis Marked; Basophils % (A) 0 %; Eosinophils # (A) 0.1 k/uL (0-0.7); Eosinophils % (A) 1 %; HCT 21.5 % (34.0-46.0); HGB 7.1 gm/dL (11.4-16.0); Hypochromasia Slight; Lymphocytes # (A) 0.5 k/uL (1.0-4.8); Lymphocytes % (A) 13 %; MCH 35.7 pg (25.0-35.0); MCHC 32.9 g/dL (31.0-37.0); MCV 108.5 fL (80.0-100.0); Mean Platelet Volume 9.1; Monocytes # (A) 0.2 k/uL (0-1.0); Monocytes % (A) 5 %; Neutrophils # (A) 3.2 k/uL (1.3-7.7); Neutrophils % (A) 79 %; Platelet Count 260 k/uL (150-450); Poikilocytosis Slight; RBC 1.98 m/uL (3.80-5.40); RDW 24.8 % (11.5-15.5)
[2020-02-21 05:10] LABS: Macrocytosis Marked
[2020-02-21 05:11] LABS: Ionized Calcium 4.6 mg/dL (4.5-5.3)
[2020-02-21 05:20] LABS: ALT 27 U/L (4-34); AST 61 U/L (14-36); African American GFR (CKD) >90 (>60 ml/min/1.73 sqM); Albumin 2.9 g/dL (3.5-5.0); Alkaline Phosphatase 39 U/L (38-126); Anion Gap 5 mmol/L; Blood Urea Nitrogen 14 mg/dL (7-17); Calcium 7.5 mg/dL (8.4-10.2); Carbon Dioxide 21 mmol/L (22-30); Chloride 105 mmol/L (98-107); Glucose 114 mg/dL (74-99); Non-African American GFR(CKD) >90 (>60 ml/min/1.73 sqM); Potassium 4.3 mmol/L (3.5-5.1); Sodium 131 mmol/L (137-145); Total Bilirubin 0.6 mg/dL (0.2-1.3); Total Protein 4.4 g/dL (6.3-8.2)
[2020-02-21 05:22] LABS: Glucose,Whole Blood 129 mg/dL (75-99)
[2020-02-21 06:11] LABS: Glucose,Whole Blood 120 mg/dL (75-99)
--- NOTE | 2020-02-21 07:23 | P.PN ---
Subjective Progress Note Date: 02/21/20 Principal diagnosis: Severe calcific coronary artery disease with left main disease, non-STEMI this admission. Previous medical history of macrocytic anemia, polio, seizures, pneu monia, and family history of premature coronary artery disease. POD #1 off-pump coronary artery bypass graft 3 with left internal mammary artery to the left anterior descending artery, reverse saphenous vein graft to the second obtuse marginal artery and posterior descending coronary artery with endovascular vein harvest of the left greater saphenous vein from mid calf to the groin, left atrial appendage exclusion with 35 mm AtriCure clip and aspirate and biopsy of the sternal bone marrow. Postoperative acute blood loss anemia, expected given patient's preoperative history of macrocytic anemia The patient is currently sitting up in bed in the intensive care unit in no acute distress. She was successfully extubated yesterday at 16:10. She does complain of pain at her chest tube sites, denies shortness of breath. Currently in normal sinus rhythm and hemodynamically stable on no inotropes or pressors. Right internal jugular Taopi/Cordis, right brachial arterial line present. Last CO/CI 5.4/3.2. No new concerns. Objective - Vital Signs Vital signs: Vital Signs Temp 99.5 F 02/21/20 05:00 Pulse 78 02/21/20 06:00 Resp 23 02/21/20 06:00 BP 112/61 02/21/20 02:00 Pulse Ox 99 02/21/20 06:00 Intake & Output 02/20/20 02/21/20 02/21/20 18:59 06:59 18:59 Intake Total 775.546 874.215 Output Total 2585 1135 Balance -1809.454 -260.785 Weight 65.7 kg Intake: IV 446 795.5 CO/CI 130 Lactated Ringers 1,000 ml 350 550 @ 50 mls/hr IV .Q20H JAVON Rx#:[id number] NS PRESSURE BAG 63 99 Nitro 16.5 Intake, IV Titration 19.546 78.715 Amount Clevidipine Butyrate 25 16.167 mg In Empty Bag 1 bag @ 1 MG/HR 2 mls/hr IV .Q24H JAVON Rx#:[id number] Dexmedetomidine/0.9% NaCl 1.963 (Pmx) 400 mcg In Empty Bag 1 bag @ Titrate IV . Q0M JAVON Rx#:[id number] Insulin Regular 100 unit 6.981 12.548 In Sodium Chloride 0.9% 100 ml @ Per Protocol IV .Q0M JAVON Rx#:[id number] Propofol 1,000 mg In 10.602 Empty Bag 1 bag @ Titrate IV .Q0M JAVON Rx#: [id number] ceFAZolin 2 gm In Sodium 50 Chloride 0.9% 50 ml @ 100 mls/hr IVPB Q8HR JAVON Rx# :[id number] Blood Product 310 Rc As-3 Unit 310 [id number] Output: Chest Tube Drainage 560 520 CHEST TUBE MEDISTINAL 340 250 CHEST TUBE RIGHT/LEFT 220 270 PLUERAL Gastric Drainage 100 Urine 925 615 Estimated Blood Loss 1000 Other: Voiding Method Indwelling Catheter Indwelling Catheter ABP, PAP, CO, CI - Last Documented Arterial Blood Pressure 127/44 Pulmonary Artery Pressure 20/8 Cardiac Output 5.5 Cardiac Index 3.2 - Constitutional General appearance: Present: cooperative, no acute distress, thin - Respiratory Details: Lungs sounds diminished bilaterally. Respirations even, nonlabored. Currently on 2 L nasal cannula with oxygen saturation 97%. Barely able to achieve 500 mL on her incentive spirometry. Weak cough. Mediastinal chest tube present to continuous wall suction, 160 mL thin serosanguineous drainage overnight, 550 mL since surgery, positive continuous air leak present. Right/left pleural chest tube present to continuous wall suction, 190 mL thin serosanguineous drainage overnight, 450 mL since surgery, no air leak present. - Cardiovascular Details: S1, S2 present. Regular rate and rhythm, sinus rhythm on telemetry with heart rate in the 70-80s. Sternum stable. Palpable peripheral pulses bilaterally. No edema present. No calf pain or tenderness noted. Right internal jugular Ta[place]i/Cordis, right brachial arterial line present. Last CO/CI 5.4/3.2 on no inotropes or pressors. Heart hugger in place with patient demonstrating appropriate use. Antiembolism stockings, SCDs present. - Gastrointestinal Gastrointestinal Comment(s): Abdomen soft, nontender, nondistended. Hypoactive bowel sounds present 4 quadrants. Tolerating sips of clear liquids. Negative flatus. - Genitourinary Genitourinary Comment(s): Velazquez present draining clear, yellow urine. Output 30-50 mL per hour overnight. - Integumentary Integumentary Comment(s): Skin is warm and dry with evidence of good perfusion. Anterior chest incision well approximated and covered with dry intact dressing. Left lower extremities EVH site well approximated. - Neurologic Neurologic: Present: CNII-XII intact - Musculoskeletal Musculoskeletal: Present: strength equal bilaterally - Psychiatric Psychiatric: Present: A&O x's 3, appropriate affect, intact judgment & insight - Allied health notes Allied health notes reviewed: nursing - Labs CBC & Chem 7: 02/21/20 04:40 02/21/20 04:40 Labs: Abnormal Lab Results - Last 24 Hours (Table) 02/19/20 02/19/20 02/20/20 Range/Units 07:18 13:03 06:28 WBC 2.5 L (3.8-10.6) k/uL RBC 2.83 L (3.80-5.40) m/uL Hgb 10.4 L (11.4-16.0) gm/dL Hct 32.0 L (34.0-46.0) % MCV 113.0 H (80.0-100.0) fL MCH 36.8 H (25.0-35.0) pg RDW 25.0 H (11.5-15.5) % Lymphocytes # 0.6 L (1.0-4.8) k/uL Lymphocytes # (Manual) (1.0-4.8) k/uL Macrocytosis Marked A Haptoglobin <8.0 L (31.2-198.0) mg/dL PT (9.0-12.0) sec INR (<1.2) APTT (22.0-30.0) sec ABG pH (7.35-7.45) ABG pO2 (83-108) mmHg ABG Total CO2 (19-24) mmol/L ABG O2 Saturation (94-97) % ABG Hematocrit (34.0-46.0) % ABG Potassium (3.4-4.5) mmol/L ABG Ionized Calcium (4.5-5.3) mg/dL ABG Glucose (75-99) mg/dL Hemoglobin (11.4-16.0) gm/dL Sodium (137-145) mmol/L Chloride (98-107) mmol/L Carbon Dioxide (22-30) mmol/L Creatinine (0.52-1.04) mg/dL Glucose (74-99) mg/dL POC Glucose (mg/dL) (75-99) mg/dL Calcium (8.4-10.2) mg/dL Magnesium (1.6-2.3) mg/dL AST (14-36) U/L Alkaline Phosphatase (38-126) U/L Total Protein (6.3-8.2) g/dL Albumin (3.5-5.0) g/dL Arterial Blood Potassium (3.4-4.5) mmol/L Arterial Blood Glucose (75-99) mg/dL Crossmatch See Detail 02/20/20 02/20/20 02/20/20 Range/Units 08:50 10:20 10:49 WBC (3.8-10.6) k/uL RBC (3.80-5.40) m/uL Hgb (11.4-16.0) gm/dL Hct (34.0-46.0) % MCV (80.0-100.0) fL MCH (25.0-35.0) pg RDW (11.5-15.5) % Lymphocytes # (1.0-4.8) k/uL Lymphocytes # (Manual) (1.0-4.8) k/uL Macrocytosis Haptoglobin (31.2-198.0) mg/dL PT (9.0-12.0) sec INR (<1.2) APTT (22.0-30.0) sec ABG pH (7.35-7.45) ABG pO2 224 H 243 H 247 H (83-108) mmHg ABG Total CO2 26 H 25 H (19-24) mmol/L ABG O2 Saturation 100.0 H 100.0 H 99.9 H (94-97) % ABG Hematocrit 26 L 21 L 22 L (34.0-46.0) % ABG Potassium (3.4-4.5) mmol/L ABG Ionized Calcium 4.4 L 4.3 L 4.1 L (4.5-5.3) mg/dL ABG Glucose 103 H 109 H 119 H (75-99) mg/dL Hemoglobin 8.6 L 6.7 L* 7.2 L (11.4-16.0) gm/dL Sodium (137-145) mmol/L Chloride (98-107) mmol/L Carbon Dioxide (22-30) mmol/L Creatinine (0.52-1.04) mg/dL Glucose (74-99) mg/dL POC Glucose (mg/dL) (75-99) mg/dL Calcium (8.4-10.2) mg/dL Magnesium (1.6-2.3) mg/dL AST (14-36) U/L Alkaline Phosphatase (38-126) U/L Total Protein (6.3-8.2) g/dL Albumin (3.5-5.0) g/dL Arterial Blood Potassium (3.4-4.5) mmol/L Arterial Blood Glucose 103 H 109 H 119 H (75-99) mg/dL Crossmatch 02/20/20 02/20/20 02/20/20 Range/Units 11:22 12:11 12:57 WBC 2.8 L (3.8-10.6) k/uL RBC 2.25 L (3.80-5.40) m/uL Hgb 8.0 L D (11.4-16.0) gm/dL Hct 24.7 L (34.0-46.0) % MCV 110.0 H (80.0-100.0) fL MCH 35.4 H (25.0-35.0) pg RDW 25.3 H (11.5-15.5) % Lymphocytes # 0.6 L (1.0-4.8) k/uL Lymphocytes # (Manual) (1.0-4.8) k/uL Macrocytosis Marked A Haptoglobin (31.2-198.0) mg/dL PT (9.0-12.0) sec INR (<1.2) APTT (22.0-30.0) sec ABG pH (7.35-7.45) ABG pO2 264 H 186 H (83-108) mmHg ABG Total CO2 25 H (19-24) mmol/L ABG O2 Saturation 100.0 H 99.7 H (94-97) % ABG Hematocrit 23 L 25 L (34.0-46.0) % ABG Potassium 5.2 H (3.4-4.5) mmol/L ABG Ionized Calcium 4.2 L 4.2 L (4.5-5.3) mg/dL ABG Glucose 123 H 136 H (75-99) mg/dL Hemoglobin 7.4 L 8.1 L (11.4-16.0) gm/dL Sodium (137-145) mmol/L Chloride (98-107) mmol/L Carbon Dioxide (22-30) mmol/L Creatinine (0.52-1.04) mg/dL Glucose (74-99) mg/dL POC Glucose (mg/dL) (75-99) mg/dL Calcium (8.4-10.2) mg/dL Magnesium (1.6-2.3) mg/dL AST (14-36) U/L Alkaline Phosphatase (38-126) U/L Total Protein (6.3-8.2) g/dL Albumin (3.5-5.0) g/dL Arterial Blood Potassium 5.2 H (3.4-4.5) mmol/L Arterial Blood Glucose 123 H 136 H (75-99) mg/dL Crossmatch 02/20/20 02/20/20 02/20/20 Range/Units 12:57 12:57 13:00 WBC (3.8-10.6) k/uL RBC (3.80-5.40) m/uL Hgb (11.4-16.0) gm/dL Hct (34.0-46.0) % MCV (80.0-100.0) fL MCH (25.0-35.0) pg RDW (11.5-15.5) % Lymphocytes # (1.0-4.8) k/uL Lymphocytes # (Manual) (1.0-4.8) k/uL Macrocytosis Haptoglobin (31.2-198.0) mg/dL PT 13.9 H (9.0-12.0) sec INR 1.4 H (<1.2) APTT 31.2 H (22.0-30.0) sec ABG pH (7.35-7.45) ABG pO2 (83-108) mmHg ABG Total CO2 (19-24) mmol/L ABG O2 Saturation (94-97) % ABG Hematocrit (34.0-46.0) % ABG Potassium (3.4-4.5) mmol/L ABG Ionized Calcium (4.5-5.3) mg/dL ABG Glucose (75-99) mg/dL Hemoglobin (11.4-16.0) gm/dL Sodium 136 L (137-145) mmol/L Chloride 109 H (98-107) mmol/L Carbon Dioxide (22-30) mmol/L Creatinine 0.40 L (0.52-1.04) mg/dL Glucose 121 H (74-99) mg/dL POC Glucose (mg/dL) 144 H (75-99) mg/dL Calcium 6.9 L (8.4-10.2) mg/dL Magnesium 2.4 H (1.6-2.3) mg/dL AST 39 H (14-36) U/L Alkaline Phosphatase 35 L (38-126) U/L Total Protein 3.9 L (6.3-8.2) g/dL Albumin 2.5 L (3.5-5.0) g/dL Arterial Blood Potassium (3.4-4.5) mmol/L Arterial Blood Glucose (75-99) mg/dL Crossmatch 02/20/20 02/20/20 02/20/20 Range/Units 13:09 14:39 15:15 WBC 3.3 L (3.8-10.6) k/uL RBC 2.44 L (3.80-5.40) m/uL Hgb 8.5 L (11.4-16.0) gm/dL Hct 26.5 L (34.0-46.0) % MCV 108.4 H (80.0-100.0) fL MCH (25.0-35.0) pg RDW 24.9 H (11.5-15.5) % Lymphocytes # (1.0-4.8) k/uL Lymphocytes # (Manual) 0.53 L (1.0-4.8) k/uL Macrocytosis Marked A Haptoglobin (31.2-198.0) mg/dL PT (9.0-12.0) sec INR (<1.2) APTT (22.0-30.0) sec ABG pH (7.35-7.45) ABG pO2 >400 H (83-108) mmHg ABG Total CO2 25 H (19-24) mmol/L ABG O2 Saturation 100.0 H (94-97) % ABG Hematocrit (34.0-46.0) % ABG Potassium (3.4-4.5) mmol/L ABG Ionized Calcium (4.5-5.3) mg/dL ABG Glucose (75-99) mg/dL Hemoglobin (11.4-16.0) gm/dL Sodium (137-145) mmol/L Chloride (98-107) mmol/L Carbon Dioxide (22-30) mmol/L Creatinine (0.52-1.04) mg/dL Glucose (74-99) mg/dL POC Glucose (mg/dL) 157 H (75-99) mg/dL Calcium (8.4-10.2) mg/dL Magnesium (1.6-2.3) mg/dL AST (14-36) U/L Alkaline Phosphatase (38-126) U/L Total Protein (6.3-8.2) g/dL Albumin (3.5-5.0) g/dL Arterial Blood Potassium (3.4-4.5) mmol/L Arterial Blood Glucose (75-99) mg/dL Crossmatch 02/20/20 02/20/20 02/20/20 Range/Units 15:17 15:53 16:48 WBC (3.8-10.6) k/uL RBC (3.80-5.40) m/uL Hgb (11.4-16.0) gm/dL Hct (34.0-46.0) % MCV (80.0-100.0) fL MCH (25.0-35.0) pg RDW (11.5-15.5) % Lymphocytes # (1.0-4.8) k/uL Lymphocytes # (Manual) (1.0-4.8) k/uL Macrocytosis Haptoglobin (31.2-198.0) mg/dL PT (9.0-12.0) sec INR (<1.2) APTT (22.0-30.0) sec ABG pH 7.34 L (7.35-7.45) ABG pO2 181 H (83-108) mmHg ABG Total CO2 (19-24) mmol/L ABG O2 Saturation 99.5 H (94-97) % ABG Hematocrit (34.0-46.0) % ABG Potassium (3.4-4.5) mmol/L ABG Ionized Calcium (4.5-5.3) mg/dL ABG Glucose (75-99) mg/dL Hemoglobin (11.4-16.0) gm/dL Sodium (137-145) mmol/L Chloride (98-107) mmol/L Carbon Dioxide (22-30) mmol/L Creatinine (0.52-1.04) mg/dL Glucose (74-99) mg/dL POC Glucose (mg/dL) 159 H 116 H (75-99) mg/dL Calcium (8.4-10.2) mg/dL Magnesium (1.6-2.3) mg/dL AST (14-36) U/L Alkaline Phosphatase (38-126) U/L Total Protein (6.3-8.2) g/dL Albumin (3.5-5.0) g/dL Arterial Blood Potassium (3.4-4.5) mmol/L Arterial Blood Glucose (75-99) mg/dL Crossmatch 02/20/20 02/20/20 02/20/20 Range/Units 17:49 18:43 18:44 WBC (3.8-10.6) k/uL RBC 2.25 L (3.80-5.40) m/uL Hgb 8.1 L (11.4-16.0) gm/dL Hct 24.7 L (34.0-46.0) % MCV 109.5 H (80.0-100.0) fL MCH 36.2 H (25.0-35.0) pg RDW 25.3 H (11.5-15.5) % Lymphocytes # 0.2 L (1.0-4.8) k/uL Lymphocytes # (Manual) (1.0-4.8) k/uL Macrocytosis Marked A Haptoglobin (31.2-198.0) mg/dL PT (9.0-12.0) sec INR (<1.2) APTT (22.0-30.0) sec ABG pH (7.35-7.45) ABG pO2 (83-108) mmHg ABG Total CO2 (19-24) mmol/L ABG O2 Saturation (94-97) % ABG Hematocrit (34.0-46.0) % ABG Potassium (3.4-4.5) mmol/L ABG Ionized Calcium (4.5-5.3) mg/dL ABG Glucose (75-99) mg/dL Hemoglobin (11.4-16.0) gm/dL Sodium (137-145) mmol/L Chloride (98-107) mmol/L Carbon Dioxide (22-30) mmol/L Creatinine (0.52-1.04) mg/dL Glucose (74-99) mg/dL POC Glucose (mg/dL) 115 H 121 H (75-99) mg/dL Calcium (8.4-10.2) mg/dL Magnesium (1.6-2.3) mg/dL AST (14-36) U/L Alkaline Phosphatase (38-126) U/L Total Protein (6.3-8.2) g/dL Albumin (3.5-5.0) g/dL Arterial Blood Potassium (3.4-4.5) mmol/L Arterial Blood Glucose (75-99) mg/dL Crossmatch 02/20/20 02/20/20 02/20/20 Range/Units 20:09 21:21 22:07 WBC (3.8-10.6) k/uL RBC (3.80-5.40) m/uL Hgb (11.4-16.0) gm/dL Hct (34.0-46.0) % MCV (80.0-100.0) fL MCH (25.0-35.0) pg RDW (11.5-15.5) % Lymphocytes # (1.0-4.8) k/uL Lymphocytes # (Manual) (1.0-4.8) k/uL Macrocytosis Haptoglobin (31.2-198.0) mg/dL PT (9.0-12.0) sec INR (<1.2) APTT (22.0-30.0) sec ABG pH (7.35-7.45) ABG pO2 (83-108) mmHg ABG Total CO2 (19-24) mmol/L ABG O2 Saturation (94-97) % ABG Hematocrit (34.0-46.0) % ABG Potassium (3.4-4.5) mmol/L ABG Ionized Calcium (4.5-5.3) mg/dL ABG Glucose (75-99) mg/dL Hemoglobin (11.4-16.0) gm/dL Sodium (137-145) mmol/L Chloride (98-107) mmol/L Carbon Dioxide (22-30) mmol/L Creatinine (0.52-1.04) mg/dL Glucose (74-99) mg/dL POC Glucose (mg/dL) 139 H 132 H 105 H (75-99) mg/dL Calcium (8.4-10.2) mg/dL Magnesium (1.6-2.3) mg/dL AST (14-36) U/L Alkaline Phosphatase (38-126) U/L Total Protein (6.3-8.2) g/dL Albumin (3.5-5.0) g/dL Arterial Blood Potassium (3.4-4.5) mmol/L Arterial Blood Glucose (75-99) mg/dL Crossmatch 02/20/20 02/20/20 02/21/20 Range/Units 23:01 23:55 00:58 WBC (3.8-10.6) k/uL RBC (3.80-5.40) m/uL Hgb (11.4-16.0) gm/dL Hct (34.0-46.0) % MCV (80.0-100.0) fL MCH (25.0-35.0) pg RDW (11.5-15.5) % Lymphocytes # (1.0-4.8) k/uL Lymphocytes # (Manual) (1.0-4.8) k/uL Macrocytosis Haptoglobin (31.2-198.0) mg/dL PT (9.0-12.0) sec INR (<1.2) APTT (22.0-30.0) sec ABG pH (7.35-7.45) ABG pO2 (83-108) mmHg ABG Total CO2 (19-24) mmol/L ABG O2 Saturation (94-97) % ABG Hematocrit (34.0-46.0) % ABG Potassium (3.4-4.5) mmol/L ABG Ionized Calcium (4.5-5.3) mg/dL ABG Glucose (75-99) mg/dL Hemoglobin (11.4-16.0) gm/dL Sodium (137-145) mmol/L Chloride (98-107) mmol/L Carbon Dioxide (22-30) mmol/L Creatinine (0.52-1.04) mg/dL Glucose (74-99) mg/dL POC Glucose (mg/dL) 120 H 137 H 128 H (75-99) mg/dL Calcium (8.4-10.2) mg/dL Magnesium (1.6-2.3) mg/dL AST (14-36) U/L Alkaline Phosphatase (38-126) U/L Total Protein (6.3-8.2) g/dL Albumin (3.5-5.0) g/dL Arterial Blood Potassium (3.4-4.5) mmol/L Arterial Blood Glucose (75-99) mg/dL Crossmatch 02/21/20 02/21/20 02/21/20 Range/Units 04:40 04:40 05:20 WBC (3.8-10.6) k/uL RBC 1.98 L (3.80-5.40) m/uL Hgb 7.1 L (11.4-16.0) gm/dL Hct 21.5 L (34.0-46.0) % MCV 108.5 H (80.0-100.0) fL MCH 35.7 H (25.0-35.0) pg RDW 24.8 H (11.5-15.5) % Lymphocytes # 0.5 L (1.0-4.8) k/uL Lymphocytes # (Manual) (1.0-4.8) k/uL Macrocytosis Marked A Haptoglobin (31.2-198.0) mg/dL PT (9.0-12.0) sec INR (<1.2) APTT (22.0-30.0) sec ABG pH (7.35-7.45) ABG pO2 (83-108) mmHg ABG Total CO2 (19-24) mmol/L ABG O2 Saturation (94-97) % ABG Hematocrit (34.0-46.0) % ABG Potassium (3.4-4.5) mmol/L ABG Ionized Calcium (4.5-5.3) mg/dL ABG Glucose (75-99) mg/dL Hemoglobin (11.4-16.0) gm/dL Sodium 131 L (137-145) mmol/L Chloride (98-107) mmol/L Carbon Dioxide 21 L (22-30) mmol/L Creatinine 0.45 L (0.52-1.04) mg/dL Glucose 114 H (74-99) mg/dL POC Glucose (mg/dL) 129 H (75-99) mg/dL Calcium 7.5 L (8.4-10.2) mg/dL Magnesium (1.6-2.3) mg/dL AST 61 H (14-36) U/L Alkaline Phosphatase (38-126) U/L Total Protein 4.4 L (6.3-8.2) g/dL Albumin 2.9 L (3.5-5.0) g/dL Arterial Blood Potassium (3.4-4.5) mmol/L Arterial Blood Glucose (75-99) mg/dL Crossmatch 02/21/20 Range/Units 06:10 WBC (3.8-10.6) k/uL RBC (3.80-5.40) m/uL Hgb (11.4-16.0) gm/dL Hct (34.0-46.0) % MCV (80.0-100.0) fL MCH (25.0-35.0) pg RDW (11.5-15.5) % Lymphocytes # (1.0-4.8) k/uL Lymphocytes # (Manual) (1.0-4.8) k/uL Macrocytosis Haptoglobin (31.2-198.0) mg/dL PT (9.0-12.0) sec INR (<1.2) APTT (22.0-30.0) sec ABG pH (7.35-7.45) ABG pO2 (83-108) mmHg ABG Total CO2 (19-24) mmol/L ABG O2 Saturation (94-97) % ABG Hematocrit (34.0-46.0) % ABG Potassium (3.4-4.5) mmol/L ABG Ionized Calcium (4.5-5.3) mg/dL ABG Glucose (75-99) mg/dL Hemoglobin (11.4-16.0) gm/dL Sodium (137-145) mmol/L Chloride (98-107) mmol/L Carbon Dioxide (22-30) mmol/L Creatinine (0.52-1.04) mg/dL Glucose (74-99) mg/dL POC Glucose (mg/dL) 120 H (75-99) mg/dL Calcium (8.4-10.2) mg/dL Magnesium (1.6-2.3) mg/dL AST (14-36) U/L Alkaline Phosphatase (38-126) U/L Total Protein (6.3-8.2) g/dL Albumin (3.5-5.0) g/dL Arterial Blood Potassium (3.4-4.5) mmol/L Arterial Blood Glucose (75-99) mg/dL Crossmatch Microbiology - Last 24 Hours (Table) 02/19/20 08:45 Nasal Screen MRSA/MSSA - Final Nasal Swab - Imaging and Cardiology Chest x-ray: image reviewed Assessment and Plan Assessment: 1. Severe calcific triple-vessel coronary artery disease with left main disease, status post three-vessel CABG 2. Macrocytic anemia unknown origin, status post bone marrow biopsy of the sternum 3. Seizure disorder, currently treated with Dilantin and phenobarb 4. History of polio 5. History of pneumonia, last episode greater than 6 months ago 6. Family history of premature coronary artery disease 7. Lifelong nonsmoker 8. Postoperative acute blood loss anemia, expected Plan: 1. Continue aspirin, statin, beta manuel therapy. Will increase beta manuel therapy as tolerated. Discontinue IV nitro 2. Wean O2 as tolerated. Encourage incentive spirometry use 10 times every hour while awake 3. Increase activity, ambulate as tolerated. PT/OT/cardiac rehab following 4. Will monitor daily labs and x-rays. Electrolyte replacement per protocol. No blood transfusion today. 5. GI/DVT prophylaxis 6. Pain controlled current medication regimen. Toradol added 7. Insulin management per primary care service. 8. Discontinue Ta[place]i. Connect Cordis to continuous CVP monitoring 9. Continue phenobarbital and Dilantin for seizure control 10. Bone marrow biopsy results pending. Hematology following. 11. Will discontinue mediastinal chest tube. We will split pleural chest tubes and keep for another 24 hours 12. Keep Velazquez catheter for another 24 hours for strict accurate intake and output 13. More recommendations to follow Time with Patient: Greater than 30
[2020-02-21 07:25] LABS: Glucose,Whole Blood 122 mg/dL (75-99)
--- NOTE | 2020-02-21 07:25 | XR ---
EXAMINATION TYPE: XR chest 1V portable DATE OF EXAM: 02/21/2020 COMPARISON: 02/20/2020 HISTORY: SOB, Follow Up FINDINGS: Removal of endotracheal tube. Remaining indwelling chest tubes and catheters remain stable. Increasing left basilar atelectasis and/or infiltrate. Stable appearance of the cardio-mediastinal st ructures at this time. Pleural effusion unchanged. IMPRESSION: 1. Increasing left basilar atelectasis and/or infiltrate. Clinical correlation and follow up until r esolution is recommended.
[2020-02-21 08:26] LABS: Glucose,Whole Blood 119 mg/dL (75-99)
[2020-02-21] MEDS: IPRATROPIUM-ALBUTEROL 3 ML NEB INHALATION SCH ×4 (08:49→19:44)
[2020-02-21] MEDS: FLUTICASONE 110 MCG INHALER INHALATION SCH ×2 (08:49→19:44)
[2020-02-21 08:59] LABS: Glucose,Whole Blood 122 mg/dL (75-99)
[2020-02-21] MEDS ORDERED: PANTOPRAZOLE 40 MG/10 ML VIAL IVP SCH (09:00)
[2020-02-21] MEDS ORDERED: BISACODYL 10 MG SUPP RECTAL PRN (09:00)
[2020-02-21] MEDS ORDERED: MAGNESIUM HYDROXIDE 2,400 MG/10 ML CUP PO PRN (09:00)
--- NOTE | 2020-02-21 09:13 | PN ---
PROGRESS NOTE PULMONARY/CRITICAL CARE PROGRESS NOTE: DATE OF SERVICE: 02/21/2020 Critical care time 31 minutes. This is a 79-year-old female whom we saw preoperatively back on February 19, 2020. She was being evaluated for severe triple-vessel coronary artery disease. Anyway, she is postop day #1, status post 3-vessel bypass grafting. She was extubated 3 hours 10 minutes after leaving the operating room. Currently, she is doing reasonably well. She is on 2 L nasal cannula. She is getting lactated Ringer's at 50 mL an hour. Her insulin drip is running at 0.5 units an hour. She had excellent weaning parameters and a positive cuff leak yesterday when I was called about her being ready for extubation. She was awake and alert. She has no history of any lung disease. She is a lifelong nonsmoker. She did have preoperative PFTs, which were stable. In addition, she has a history of macrocytic anemia, pernicious anemia, seizure disorder, history of polio, prior history of pneumonia, a family history of premature coronary artery disease, and again she was a lifelong nonsmoker. Currently doing well. Again, she is on 2 L. Current vital signs are reviewed, temperature 99.5, heart rate 79, respiratory rate 23, blood pressure 121/47, saturations are 99% on 2 L. Pulmonary artery pressure is 24/11 and central venous pressure is 5. She appears in no acute distress. She is sitting upright in a chair. HEENT: Examination is grossly unremarkable. Nasal O2 in place. NECK: Supple. Full range of motion. No adenopathy. Neck veins are flat. CARDIOVASCULAR: Examination reveals regular rhythm and rate. Heart sounds are distant. Heart rate is about mid 70s. S1, S2 normal. No murmur. LUNGS: Reveal mostly clear breath sounds. A few scattered rhonchi. No wheezes or crackles. Breath sounds equal. ABDOMEN: Soft, bowel sounds are heard. No masses or tenderness. EXTREMITIES: Intact. No cyanosis, clubbing, or edema. SKIN: Without rash. NEUROLOGIC: Examination is brief but nonfocal. LABS: Reviewed. White count 4, hemoglobin 7.1, hematocrit 21.5, platelet count 260,000, sodium 131, potassium 4.3, chloride is 105, CO2 is 21. BUN and creatinine were 14 and 0.45. Anion gap was normal. Albumin 2.9. A chest x-ray done February 21, 2020 shows postsurgical changes. There is some bibasilar left greater than right atelectasis and/or infiltrate. Medications are reviewed. ASSESSMENT: 1. Postoperative day #1 status post 3-vessel bypass grafting. 2. Routine postoperative ventilator management with extubation 3 hours 10 minutes post leaving the OR. 3. Severe triple-vessel coronary disease including left main disease. 4. No history of intrinsic pulmonary disease as the patient was a lifelong nonsmoker, had more than adequate preoperative spirometry. 5. History of macrocytic anemia. 6. History of pernicious anemia. 7. Seizure disorder. 8. History of polio. 9. Prior history of pneumonia. 10.Family history of premature coronary disease. 11.Lifelong nonsmoker. PLAN: Currently, the patient is doing well. She is on 2 L. She is getting LR at 50 mL an hour. She is on an insulin drip 0.5 units an hour. Additional recommendations and suggestions are forthcoming. Prognosis is guarded. We recommend deep breathing, coughing, clearing of secretions. We also recommend incentive spirometry every hour while awake. Will continue to follow. MMODL / IJN: [id number] /
[2020-02-21] MEDS: CLOPIDOGREL 75 MG TAB PO SCH (09:25)
[2020-02-21] MEDS: ATORVASTATIN 40 MG TAB PO SCH (09:25)
[2020-02-21] MEDS: ASPIRIN 325 MG TAB PO SCH (09:25)
[2020-02-21] MEDS: KETOROLAC 30 MG/ML 1 ML VIAL IVP SCH ×3 (09:26→23:57)
[2020-02-21] MEDS: METOPROLOL TARTRATE 12.5 MG TAB PO SCH ×2 (09:26→22:32)
[2020-02-21] MEDS: PHENYTOIN SODIUM EXTENDED 100 MG CAP PO SCH ×3 (09:26→22:33)
[2020-02-21] MEDS: LACTATED RINGERS 1,000 ML IV SCH (09:30)
[2020-02-21] MEDS: PHENobarbital 32.4 MG TAB PO SCH ×2 (09:32→22:33)
[2020-02-21 10:02] LABS: Glucose,Whole Blood 131 mg/dL (75-99)
[2020-02-21 11:20] LABS: Glucose,Whole Blood 144 mg/dL (75-99)
[2020-02-21 12:21] LABS: Glucose,Whole Blood 110 mg/dL (75-99)
[2020-02-21] MEDS: FOLIC ACID 1 MG TAB PO SCH (12:28)
[2020-02-21] MEDS: THIAMINE 100 MG TAB PO SCH (12:28)
[2020-02-21 13:06] LABS: Glucose,Whole Blood 173 mg/dL (75-99)
[2020-02-21 14:17] LABS: Glucose,Whole Blood 100 mg/dL (75-99)
[2020-02-21] MEDS: CLEVIDIPINE BUTYRATE 25 MG in EMPTY BAG 1 BAG IV SCH (14:26)
--- NOTE | 2020-02-21 15:04 | P.PN ---
Subjective Progress Note Date: 02/21/20 This is a 79-year-old female status post bypass surgery. Patient is sitting up in the chair. Complaints of some chest discomfort. Her urine output mildly low. The patient otherwise clinically and hemodynamically stable. Patient is getting IV albumin. No Sigmund arrhythmias noted. Continue current management. Incentive spirometry Objective - Vital Signs Vital signs: Vital Signs Temp 99.5 F 02/21/20 05:00 Pulse 82 02/21/20 12:33 Resp 23 02/21/20 07:00 BP 112/61 02/21/20 02:00 Pulse Ox 99 02/21/20 07:00 Intake & Output 02/20/20 02/21/20 02/21/20 18:59 06:59 18:59 Intake Total 775.546 874.215 315.037 Output Total 2585 1135 95 Balance -1809.454 -260.785 220.037 Weight 65.7 kg 65.7 kg Intake: IV 446 795.5 60.5 CO/CI 130 Lactated Ringers 1,000 ml 350 550 50 @ 50 mls/hr IV .Q20H [facility] Rx#:[id number] NS PRESSURE BAG 63 99 9 Nitro 16.5 1.5 Intake, IV Titration 19.546 78.715 254.537 Amount Albumin Human 5% 250 ml 250 In Empty Bag 1 bag @ 250 mls/hr IVPB Q1HR PRN Rx#: [id number] Clevidipine Butyrate 25 16.167 mg In Empty Bag 1 bag @ 1 MG/HR 2 mls/hr IV .Q24H [facility] Rx#:[id number] Dexmedetomidine/0.9% NaCl 1.963 (Pmx) 400 mcg In Empty Bag 1 bag @ Titrate IV . Q0M [facility] Rx#:[id number] Insulin Regular 100 unit 6.981 12.548 4.537 In Sodium Chloride 0.9% 100 ml @ Per Protocol IV .Q0M [facility] Rx#:[id number] Propofol 1,000 mg In 10.602 Empty Bag 1 bag @ Titrate IV .Q0M [facility] Rx#: [id number] ceFAZolin 2 gm In Sodium 50 Chloride 0.9% 50 ml @ 100 mls/hr IVPB Q8HR [facility] Rx# :[id number] Blood Product 310 Rc As-3 Unit 310 [id number] Output: Chest Tube Drainage 560 520 60 CHEST TUBE MEDISTINAL 340 250 30 CHEST TUBE RIGHT/LEFT 220 270 30 PLUERAL Gastric Drainage 100 Urine 925 615 35 Estimated Blood Loss 1000 Other: Voiding Method Indwelling Catheter Indwelling Catheter Indwelling Catheter ABP, PAP, CO, CI - Last Documented Arterial Blood Pressure 121/47 Pulmonary Artery Pressure 24/11 Cardiac Output 5.5 Cardiac Index 3.2 - Exam GENERAL EXAM: Patient is alert and oriented and doesn't appear to be in any acute distress HEENT: Normocephalic. Normal reaction of pupils, equal size, normal range of extraocular motion. No erythema or exudates in the throat. NECK: No masses, no nuchal rigidity. CHEST: Postsurgical LUNGS: Equal air entry with no crackles or wheeze. HEART: S1 and S2 normal with no audible mumurs or gallops. Regular rhythm, femorals equal on both sides.. ABDOMEN: No hepatosplenomegaly, normal bowel sounds, no guarding or rigidity. SKIN: No rashes CENTRAL NERVOUS SYSTEM: No focal deficits. EXTREMITIES: No cyanosis, clubbing or edema. - Labs CBC & Chem 7: 02/21/20 04:40 02/21/20 04:40 Labs: Abnormal Lab Results - Last 24 Hours (Table) 02/19/20 02/20/20 02/20/20 Range/Units 13:03 15:15 15:17 WBC 3.3 L (3.8-10.6) k/uL RBC 2.44 L (3.80-5.40) m/uL Hgb 8.5 L (11.4-16.0) gm/dL Hct 26.5 L (34.0-46.0) % MCV 108.4 H (80.0-100.0) fL MCH (25.0-35.0) pg RDW 24.9 H (11.5-15.5) % Lymphocytes # (1.0-4.8) k/uL Lymphocytes # (Manual) 0.53 L (1.0-4.8) k/uL Macrocytosis Marked A ABG pH (7.35-7.45) ABG pO2 (83-108) mmHg ABG O2 Saturation (94-97) % Sodium (137-145) mmol/L Carbon Dioxide (22-30) mmol/L Creatinine (0.52-1.04) mg/dL Glucose (74-99) mg/dL POC Glucose (mg/dL) 159 H (75-99) mg/dL Calcium (8.4-10.2) mg/dL AST (14-36) U/L Total Protein (6.3-8.2) g/dL Albumin (3.5-5.0) g/dL Crossmatch See Detail 02/20/20 02/20/20 02/20/20 Range/Units 15:53 16:48 17:49 WBC (3.8-10.6) k/uL RBC (3.80-5.40) m/uL Hgb (11.4-16.0) gm/dL Hct (34.0-46.0) % MCV (80.0-100.0) fL MCH (25.0-35.0) pg RDW (11.5-15.5) % Lymphocytes # (1.0-4.8) k/uL Lymphocytes # (Manual) (1.0-4.8) k/uL Macrocytosis ABG pH 7.34 L (7.35-7.45) ABG pO2 181 H (83-108) mmHg ABG O2 Saturation 99.5 H (94-97) % Sodium (137-145) mmol/L Carbon Dioxide (22-30) mmol/L Creatinine (0.52-1.04) mg/dL Glucose (74-99) mg/dL POC Glucose (mg/dL) 116 H 115 H (75-99) mg/dL Calcium (8.4-10.2) mg/dL AST (14-36) U/L Total Protein (6.3-8.2) g/dL Albumin (3.5-5.0) g/dL Crossmatch 02/20/20 02/20/20 02/20/20 Range/Units 18:43 18:44 20:09 WBC (3.8-10.6) k/uL RBC 2.25 L (3.80-5.40) m/uL Hgb 8.1 L (11.4-16.0) gm/dL Hct 24.7 L (34.0-46.0) % MCV 109.5 H (80.0-100.0) fL MCH 36.2 H (25.0-35.0) pg RDW 25.3 H (11.5-15.5) % Lymphocytes # 0.2 L (1.0-4.8) k/uL Lymphocytes # (Manual) (1.0-4.8) k/uL Macrocytosis Marked A ABG pH (7.35-7.45) ABG pO2 (83-108) mmHg ABG O2 Saturation (94-97) % Sodium (137-145) mmol/L Carbon Dioxide (22-30) mmol/L Creatinine (0.52-1.04) mg/dL Glucose (74-99) mg/dL POC Glucose (mg/dL) 121 H 139 H (75-99) mg/dL Calcium (8.4-10.2) mg/dL AST (14-36) U/L Total Protein (6.3-8.2) g/dL Albumin (3.5-5.0) g/dL Crossmatch 02/20/20 02/20/20 02/20/20 Range/Units 21:21 22:07 23:01 WBC (3.8-10.6) k/uL RBC (3.80-5.40) m/uL Hgb (11.4-16.0) gm/dL Hct (34.0-46.0) % MCV (80.0-100.0) fL MCH (25.0-35.0) pg RDW (11.5-15.5) % Lymphocytes # (1.0-4.8) k/uL Lymphocytes # (Manual) (1.0-4.8) k/uL Macrocytosis ABG pH (7.35-7.45) ABG pO2 (83-108) mmHg ABG O2 Saturation (94-97) % Sodium (137-145) mmol/L Carbon Dioxide (22-30) mmol/L Creatinine (0.52-1.04) mg/dL Glucose (74-99) mg/dL POC Glucose (mg/dL) 132 H 105 H 120 H (75-99) mg/dL Calcium (8.4-10.2) mg/dL AST (14-36) U/L Total Protein (6.3-8.2) g/dL Albumin (3.5-5.0) g/dL Crossmatch 02/20/20 02/21/20 02/21/20 Range/Units 23:55 00:58 04:40 WBC (3.8-10.6) k/uL RBC 1.98 L (3.80-5.40) m/uL Hgb 7.1 L (11.4-16.0) gm/dL Hct 21.5 L (34.0-46.0) % MCV 108.5 H (80.0-100.0) fL MCH 35.7 H (25.0-35.0) pg RDW 24.8 H (11.5-15.5) % Lymphocytes # 0.5 L (1.0-4.8) k/uL Lymphocytes # (Manual) (1.0-4.8) k/uL Macrocytosis Marked A ABG pH (7.35-7.45) ABG pO2 (83-108) mmHg ABG O2 Saturation (94-97) % Sodium (137-145) mmol/L Carbon Dioxide (22-30) mmol/L Creatinine (0.52-1.04) mg/dL Glucose (74-99) mg/dL POC Glucose (mg/dL) 137 H 128 H (75-99) mg/dL Calcium (8.4-10.2) mg/dL AST (14-36) U/L Total Protein (6.3-8.2) g/dL Albumin (3.5-5.0) g/dL Crossmatch 02/21/20 02/21/20 02/21/20 Range/Units 04:40 05:20 06:10 WBC (3.8-10.6) k/uL RBC (3.80-5.40) m/uL Hgb (11.4-16.0) gm/dL Hct (34.0-46.0) % MCV (80.0-100.0) fL MCH (25.0-35.0) pg RDW (11.5-15.5) % Lymphocytes # (1.0-4.8) k/uL Lymphocytes # (Manual) (1.0-4.8) k/uL Macrocytosis ABG pH (7.35-7.45) ABG pO2 (83-108) mmHg ABG O2 Saturation (94-97) % Sodium 131 L (137-145) mmol/L Carbon Dioxide 21 L (22-30) mmol/L Creatinine 0.45 L (0.52-1.04) mg/dL Glucose 114 H (74-99) mg/dL POC Glucose (mg/dL) 129 H 120 H (75-99) mg/dL Calcium 7.5 L (8.4-10.2) mg/dL AST 61 H (14-36) U/L Total Protein 4.4 L (6.3-8.2) g/dL Albumin 2.9 L (3.5-5.0) g/dL Crossmatch 02/21/20 02/21/20 02/21/20 Range/Units 07:23 08:24 08:58 WBC (3.8-10.6) k/uL RBC (3.80-5.40) m/uL Hgb (11.4-16.0) gm/dL Hct (34.0-46.0) % MCV (80.0-100.0) fL MCH (25.0-35.0) pg RDW (11.5-15.5) % Lymphocytes # (1.0-4.8) k/uL Lymphocytes # (Manual) (1.0-4.8) k/uL Macrocytosis ABG pH (7.35-7.45) ABG pO2 (83-108) mmHg ABG O2 Saturation (94-97) % Sodium (137-145) mmol/L Carbon Dioxide (22-30) mmol/L Creatinine (0.52-1.04) mg/dL Glucose (74-99) mg/dL POC Glucose (mg/dL) 122 H 119 H 122 H (75-99) mg/dL Calcium (8.4-10.2) mg/dL AST (14-36) U/L Total Protein (6.3-8.2) g/dL Albumin (3.5-5.0) g/dL Crossmatch 02/21/20 02/21/20 02/21/20 Range/Units 10:00 11:19 12:18 WBC (3.8-10.6) k/uL RBC (3.80-5.40) m/uL Hgb (11.4-16.0) gm/dL Hct (34.0-46.0) % MCV (80.0-100.0) fL MCH (25.0-35.0) pg RDW (11.5-15.5) % Lymphocytes # (1.0-4.8) k/uL Lymphocytes # (Manual) (1.0-4.8) k/uL Macrocytosis ABG pH (7.35-7.45) ABG pO2 (83-108) mmHg ABG O2 Saturation (94-97) % Sodium (137-145) mmol/L Carbon Dioxide (22-30) mmol/L Creatinine (0.52-1.04) mg/dL Glucose (74-99) mg/dL POC Glucose (mg/dL) 131 H 144 H 110 H (75-99) mg/dL Calcium (8.4-10.2) mg/dL AST (14-36) U/L Total Protein (6.3-8.2) g/dL Albumin (3.5-5.0) g/dL Crossmatch 02/21/20 02/21/20 Range/Units 13:05 14:15 WBC (3.8-10.6) k/uL RBC (3.80-5.40) m/uL Hgb (11.4-16.0) gm/dL Hct (34.0-46.0) % MCV (80.0-100.0) fL MCH (25.0-35.0) pg RDW (11.5-15.5) % Lymphocytes # (1.0-4.8) k/uL Lymphocytes # (Manual) (1.0-4.8) k/uL Macrocytosis ABG pH (7.35-7.45) ABG pO2 (83-108) mmHg ABG O2 Saturation (94-97) % Sodium (137-145) mmol/L Carbon Dioxide (22-30) mmol/L Creatinine (0.52-1.04) mg/dL Glucose (74-99) mg/dL POC Glucose (mg/dL) 173 H 100 H (75-99) mg/dL Calcium (8.4-10.2) mg/dL AST (14-36) U/L Total Protein (6.3-8.2) g/dL Albumin (3.5-5.0) g/dL Crossmatch Microbiology - Last 24 Hours (Table) 02/19/20 08:45 Nasal Screen MRSA/MSSA - Final Nasal Swab Assessment and Plan (1) Status post aorto-coronary artery bypass graft Current Visit: Yes Status: Acute Code(s): Z95.1 - PRESENCE OF AORTOCORONARY BYPASS GRAFT SNOMED Code(s): 787943138 (2) NSTEMI (non-ST elevated myocardial infarction) Current Visit: Yes Status: Acute Code(s): I21.4 - NON-ST ELEVATION (NSTEMI) MYOCARDIAL INFARCTION SNOMED Code(s): 87444781 Plan: Patient is critically stable. Urine output is low. No arrhythmias. Received IV albumin. We'll follow
[2020-02-21 15:11] LABS: Glucose,Whole Blood 105 mg/dL (75-99)
[2020-02-21 16:12] LABS: Glucose,Whole Blood 121 mg/dL (75-99)
[2020-02-21 16:59] LABS: Glucose,Whole Blood 138 mg/dL (75-99)
[2020-02-21 17:58] LABS: Glucose,Whole Blood 232 mg/dL (75-99)
[2020-02-21 19:08] LABS: Glucose,Whole Blood 194 mg/dL (75-99)
[2020-02-21 20:43] LABS: Glucose,Whole Blood 95 mg/dL (75-99)
[2020-02-21] MEDS: ONDANSETRON 4 MG/2 ML VIAL IVP PRN (21:26)
--- NOTE | 2020-02-21 21:49 | P.PN ---
Subjective Progress Note Date: 02/21/20 Principal diagnosis: CAD and Pancytopenia Hemoglobin 7, Neutrophils stable, no GCSF at this time Objective - Vital Signs Vital signs: Vital Signs Temp 99.5 F 02/21/20 05:00 Pulse 82 02/21/20 12:33 Resp 23 02/21/20 07:00 BP 112/61 02/21/20 02:00 Pulse Ox 99 02/21/20 07:00 Intake & Output 02/20/20 02/21/20 02/21/20 18:59 06:59 18:59 Intake Total 775.546 874.215 315.037 Output Total 2585 1135 95 Balance -1809.454 -260.785 220.037 Weight 65.7 kg 65.7 kg Intake: IV 446 795.5 60.5 CO/CI 130 Lactated Ringers 1,000 ml 350 550 50 @ 50 mls/hr IV .Q20H [facility] Rx#:[id number] NS PRESSURE BAG 63 99 9 Nitro 16.5 1.5 Intake, IV Titration 19.546 78.715 254.537 Amount Albumin Human 5% 250 ml 250 In Empty Bag 1 bag @ 250 mls/hr IVPB Q1HR PRN Rx#: [id number] Clevidipine Butyrate 25 16.167 mg In Empty Bag 1 bag @ 1 MG/HR 2 mls/hr IV .Q24H [facility] Rx#:[id number] Dexmedetomidine/0.9% NaCl 1.963 (Pmx) 400 mcg In Empty Bag 1 bag @ Titrate IV . Q0M [facility] Rx#:[id number] Insulin Regular 100 unit 6.981 12.548 4.537 In Sodium Chloride 0.9% 100 ml @ Per Protocol IV .Q0M [facility] Rx#:[id number] Propofol 1,000 mg In 10.602 Empty Bag 1 bag @ Titrate IV .Q0M [facility] Rx#: [id number] ceFAZolin 2 gm In Sodium 50 Chloride 0.9% 50 ml @ 100 mls/hr IVPB Q8HR [facility] Rx# :[id number] Blood Product 310 Rc As-3 Unit 310 [id number] Output: Chest Tube Drainage 560 520 60 CHEST TUBE MEDISTINAL 340 250 30 CHEST TUBE RIGHT/LEFT 220 270 30 PLUERAL Gastric Drainage 100 Urine 925 615 35 Estimated Blood Loss 1000 Other: Voiding Method Indwelling Catheter Indwelling Catheter ABP, PAP, CO, CI - Last Documented Arterial Blood Pressure 121/47 Pulmonary Artery Pressure 24/11 Cardiac Output 5.5 Cardiac Index 3.2 - Exam Well-developed, thin built, in no acute distress, respirations even and unlabored, abdominal distention, swelling in the legs - Constitutional General appearance: cooperative, no acute distress, thin - EENT Eyes: anicteric sclerae, EOMI ENT: hearing grossly normal - Labs CBC & Chem 7: 02/21/20 04:40 02/21/20 04:40 Labs: Abnormal Lab Results - Last 24 Hours (Table) 02/19/20 02/20/20 02/20/20 Range/Units 13:03 14:39 15:15 WBC 3.3 L (3.8-10.6) k/uL RBC 2.44 L (3.80-5.40) m/uL Hgb 8.5 L (11.4-16.0) gm/dL Hct 26.5 L (34.0-46.0) % MCV 108.4 H (80.0-100.0) fL MCH (25.0-35.0) pg RDW 24.9 H (11.5-15.5) % Lymphocytes # (1.0-4.8) k/uL Lymphocytes # (Manual) 0.53 L (1.0-4.8) k/uL Macrocytosis Marked A ABG pH (7.35-7.45) ABG pO2 (83-108) mmHg ABG O2 Saturation (94-97) % Sodium (137-145) mmol/L Carbon Dioxide (22-30) mmol/L Creatinine (0.52-1.04) mg/dL Glucose (74-99) mg/dL POC Glucose (mg/dL) 157 H (75-99) mg/dL Calcium (8.4-10.2) mg/dL AST (14-36) U/L Total Protein (6.3-8.2) g/dL Albumin (3.5-5.0) g/dL Crossmatch See Detail 02/20/20 02/20/20 02/20/20 Range/Units 15:17 15:53 16:48 WBC (3.8-10.6) k/uL RBC (3.80-5.40) m/uL Hgb (11.4-16.0) gm/dL Hct (34.0-46.0) % MCV (80.0-100.0) fL MCH (25.0-35.0) pg RDW (11.5-15.5) % Lymphocytes # (1.0-4.8) k/uL Lymphocytes # (Manual) (1.0-4.8) k/uL Macrocytosis ABG pH 7.34 L (7.35-7.45) ABG pO2 181 H (83-108) mmHg ABG O2 Saturation 99.5 H (94-97) % Sodium (137-145) mmol/L Carbon Dioxide (22-30) mmol/L Creatinine (0.52-1.04) mg/dL Glucose (74-99) mg/dL POC Glucose (mg/dL) 159 H 116 H (75-99) mg/dL Calcium (8.4-10.2) mg/dL AST (14-36) U/L Total Protein (6.3-8.2) g/dL Albumin (3.5-5.0) g/dL Crossmatch 02/20/20 02/20/20 02/20/20 Range/Units 17:49 18:43 18:44 WBC (3.8-10.6) k/uL RBC 2.25 L (3.80-5.40) m/uL Hgb 8.1 L (11.4-16.0) gm/dL Hct 24.7 L (34.0-46.0) % MCV 109.5 H (80.0-100.0) fL MCH 36.2 H (25.0-35.0) pg RDW 25.3 H (11.5-15.5) % Lymphocytes # 0.2 L (1.0-4.8) k/uL Lymphocytes # (Manual) (1.0-4.8) k/uL Macrocytosis Marked A ABG pH (7.35-7.45) ABG pO2 (83-108) mmHg ABG O2 Saturation (94-97) % Sodium (137-145) mmol/L Carbon Dioxide (22-30) mmol/L Creatinine (0.52-1.04) mg/dL Glucose (74-99) mg/dL POC Glucose (mg/dL) 115 H 121 H (75-99) mg/dL Calcium (8.4-10.2) mg/dL AST (14-36) U/L Total Protein (6.3-8.2) g/dL Albumin (3.5-5.0) g/dL Crossmatch 02/20/20 02/20/20 02/20/20 Range/Units 20:09 21:21 22:07 WBC (3.8-10.6) k/uL RBC (3.80-5.40) m/uL Hgb (11.4-16.0) gm/dL Hct (34.0-46.0) % MCV (80.0-100.0) fL MCH (25.0-35.0) pg RDW (11.5-15.5) % Lymphocytes # (1.0-4.8) k/uL Lymphocytes # (Manual) (1.0-4.8) k/uL Macrocytosis ABG pH (7.35-7.45) ABG pO2 (83-108) mmHg ABG O2 Saturation (94-97) % Sodium (137-145) mmol/L Carbon Dioxide (22-30) mmol/L Creatinine (0.52-1.04) mg/dL Glucose (74-99) mg/dL POC Glucose (mg/dL) 139 H 132 H 105 H (75-99) mg/dL Calcium (8.4-10.2) mg/dL AST (14-36) U/L Total Protein (6.3-8.2) g/dL Albumin (3.5-5.0) g/dL Crossmatch 02/20/20 02/20/20 02/21/20 Range/Units 23:01 23:55 00:58 WBC (3.8-10.6) k/uL RBC (3.80-5.40) m/uL Hgb (11.4-16.0) gm/dL Hct (34.0-46.0) % MCV (80.0-100.0) fL MCH (25.0-35.0) pg RDW (11.5-15.5) % Lymphocytes # (1.0-4.8) k/uL Lymphocytes # (Manual) (1.0-4.8) k/uL Macrocytosis ABG pH (7.35-7.45) ABG pO2 (83-108) mmHg ABG O2 Saturation (94-97) % Sodium (137-145) mmol/L Carbon Dioxide (22-30) mmol/L Creatinine (0.52-1.04) mg/dL Glucose (74-99) mg/dL POC Glucose (mg/dL) 120 H 137 H 128 H (75-99) mg/dL Calcium (8.4-10.2) mg/dL AST (14-36) U/L Total Protein (6.3-8.2) g/dL Albumin (3.5-5.0) g/dL Crossmatch 02/21/20 02/21/20 02/21/20 Range/Units 04:40 04:40 05:20 WBC (3.8-10.6) k/uL RBC 1.98 L (3.80-5.40) m/uL Hgb 7.1 L (11.4-16.0) gm/dL Hct 21.5 L (34.0-46.0) % MCV 108.5 H (80.0-100.0) fL MCH 35.7 H (25.0-35.0) pg RDW 24.8 H (11.5-15.5) % Lymphocytes # 0.5 L (1.0-4.8) k/uL Lymphocytes # (Manual) (1.0-4.8) k/uL Macrocytosis Marked A ABG pH (7.35-7.45) ABG pO2 (83-108) mmHg ABG O2 Saturation (94-97) % Sodium 131 L (137-145) mmol/L Carbon Dioxide 21 L (22-30) mmol/L Creatinine 0.45 L (0.52-1.04) mg/dL Glucose 114 H (74-99) mg/dL POC Glucose (mg/dL) 129 H (75-99) mg/dL Calcium 7.5 L (8.4-10.2) mg/dL AST 61 H (14-36) U/L Total Protein 4.4 L (6.3-8.2) g/dL Albumin 2.9 L (3.5-5.0) g/dL Crossmatch 02/21/20 02/21/20 02/21/20 Range/Units 06:10 07:23 08:24 WBC (3.8-10.6) k/uL RBC (3.80-5.40) m/uL Hgb (11.4-16.0) gm/dL Hct (34.0-46.0) % MCV (80.0-100.0) fL MCH (25.0-35.0) pg RDW (11.5-15.5) % Lymphocytes # (1.0-4.8) k/uL Lymphocytes # (Manual) (1.0-4.8) k/uL Macrocytosis ABG pH (7.35-7.45) ABG pO2 (83-108) mmHg ABG O2 Saturation (94-97) % Sodium (137-145) mmol/L Carbon Dioxide (22-30) mmol/L Creatinine (0.52-1.04) mg/dL Glucose (74-99) mg/dL POC Glucose (mg/dL) 120 H 122 H 119 H (75-99) mg/dL Calcium (8.4-10.2) mg/dL AST (14-36) U/L Total Protein (6.3-8.2) g/dL Albumin (3.5-5.0) g/dL Crossmatch 02/21/20 02/21/20 02/21/20 Range/Units 08:58 10:00 11:19 WBC (3.8-10.6) k/uL RBC (3.80-5.40) m/uL Hgb (11.4-16.0) gm/dL Hct (34.0-46.0) % MCV (80.0-100.0) fL MCH (25.0-35.0) pg RDW (11.5-15.5) % Lymphocytes # (1.0-4.8) k/uL Lymphocytes # (Manual) (1.0-4.8) k/uL Macrocytosis ABG pH (7.35-7.45) ABG pO2 (83-108) mmHg ABG O2 Saturation (94-97) % Sodium (137-145) mmol/L Carbon Dioxide (22-30) mmol/L Creatinine (0.52-1.04) mg/dL Glucose (74-99) mg/dL POC Glucose (mg/dL) 122 H 131 H 144 H (75-99) mg/dL Calcium (8.4-10.2) mg/dL AST (14-36) U/L Total Protein (6.3-8.2) g/dL Albumin (3.5-5.0) g/dL Crossmatch 02/21/20 02/21/20 Range/Units 12:18 13:05 WBC (3.8-10.6) k/uL RBC (3.80-5.40) m/uL Hgb (11.4-16.0) gm/dL Hct (34.0-46.0) % MCV (80.0-100.0) fL MCH (25.0-35.0) pg RDW (11.5-15.5) % Lymphocytes # (1.0-4.8) k/uL Lymphocytes # (Manual) (1.0-4.8) k/uL Macrocytosis ABG pH (7.35-7.45) ABG pO2 (83-108) mmHg ABG O2 Saturation (94-97) % Sodium (137-145) mmol/L Carbon Dioxide (22-30) mmol/L Creatinine (0.52-1.04) mg/dL Glucose (74-99) mg/dL POC Glucose (mg/dL) 110 H 173 H (75-99) mg/dL Calcium (8.4-10.2) mg/dL AST (14-36) U/L Total Protein (6.3-8.2) g/dL Albumin (3.5-5.0) g/dL Crossmatch Microbiology - Last 24 Hours (Table) 02/19/20 08:45 Nasal Screen MRSA/MSSA - Final Nasal Swab Assessment and Plan Plan: Assessment and Plan: Macrocytic anemia - Pt was worked up extensively at [facility] in the last 2 weeks. - Transfusions as needed for hemoglobin less than 7 or if patient is symp tomatic. G-CSF is added post op id WBC below 1.5 or ANC less than 0.8 - CBC daily. - Status post BM biopsy during CTS - Await Path To complete workup for patient's bicytopenia Dr. Gastelum obtained specimen of Bone marrow from sternum. For the bone marrow please order Histology, flow cytometry, AML and MVS FISH study. 2. CAD: - Status post CABG x3 on 02/20/[address] Gastelum - Also obtained Bone Marrow Specimen from Sternum during procedure - Continue care in ICU and per CTS Plan: - Await Bone Marrow Results including Histology, Flow Cytometry, AML and MDS FIsh Studies. - Supportive Transfusions PRN - Growth Factor as indictated if Neutrophils fall below 0.8, or WBC below 1.5 physician attest: I have completed full history and physical and agree with above dictation, dictated as a scribe
[2020-02-21 22:13] LABS: Glucose,Whole Blood 110 mg/dL (75-99)
--- NOTE | 2020-02-21 22:19 | P.DS ---
Providers Date of admission: 02/18/20 17:27 Expected date of discharge: 02/21/20 Attending physician: Robel Gastelum Consults: 02/19/20 06:46 Consult Physician Urgent Consulting Provider: Robel Gastelum Consult Reason/Comments: triple vessel disease surgical consult Do you want consulting provider notified?: Yes 02/19/20 07:15 Consult Physician Routine Consulting Provider: Rachelle Merrill Consult Reason/Comments: nstemi Do you want consulting provider notified?: Already Contacted 02/19/20 07:20 Consult Physician Routine Consulting Provider: Mansoor Velazco Consult Reason/Comments: preop cabg Do you want consulting provider notified?: Yes Consult to Anesthesia Routine Consulting Provider: Anesthesia,Services Consult Reason/Comments: Cardiac Surgery Pre-Op 02/19/20 08:39 Consult Physician Urgent Consulting Provider: Jean-Paul Jara Consult Reason/Comments: anemia workup; recs for open heart surgery Do you want consulting provider notified?: Yes 02/19/20 16:07 Consult Physician Routine Consulting Provider: Rachelle Merrill Consult Reason/Comments: NSTEMI Do you want consulting provider notified?: Already Contacted 02/20/20 12:14 Consult Physician Routine Consulting Provider: Ankur Velázquez Consult Reason/Comments: med mgmt Do you want consulting provider notified?: Already Contacted Primary care physician: Myron Smith DO Hospital Course: Chief Complaint: Chest pain History of presenting complaint: This is a very pleasant 79-year-old patient of Dr. Jacqueline Lorenzo. Patient is presented 4 days ago to [facility]. In the doctor's office she was found to have hemoglobin of 6.5 and sent to the hospital. Initial hemoglobin was 6.5 given 2 units of blood. Hemoglobin did come up to 9.2. Patient also was having chest pain at home. Ruled in for acute non-Q-wave DE. Yesterday morning patient underwent a cardiac catheterization found to have left main and triple-vessel disease. Patient was transferred here for coronary bypass. Patient also was found to have bicytopenia and being worked up by hematology. Which is B12 folate was normal. Patient may need a bone marrow biopsy done the road. She is little bit tired. Currently no cardiac symptoms. 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 Underwent three-vessel bypass on [place] 9. Today-up in a chair today. Did tolerate liquids. Did woke up to the desk out of the room.. Tired. System visiting. Review of systems: Was done for constitutional, cardiovascular, GI, pulmonary. relevant finding as above Active Medications Acetaminophen (Tylenol Tab) 1,000 mg PO Q6HR PRN PRN Reason: Fever and/ or Pain Hydrocodone Bitart/Acetaminophen (Reading 5-325) 2 each PO Q4HR PRN PRN Reason: Severe Pain Hydrocodone Bitart/Acetaminophen (Reading 5-325) 1 each PO Q4HR PRN PRN Reason: Moderate Pain Last Admin: 02/21/20 20:37 Dose: 1 each Documented by: Albuterol/Ipratropium (Duoneb 0.5 Mg-3 Mg/3 Ml Soln) 3 ml INHALATION RT-Q2H PRN PRN Reason: Shortness Of Breath Or Wheezing Albuterol/Ipratropium (Duoneb 0.5 Mg-3 Mg/3 Ml Soln) 3 ml INHALATION RT-QID [facility] Last Admin: 02/21/20 19:44 Dose: 3 ml Documented by: Aspirin (Aspirin) 325 mg PO DAILY [facility] Last Admin: 02/21/20 09:25 Dose: 325 mg Documented by: Atorvastatin Calcium (Lipitor) 40 mg PO DAILY [facility] Last Admin: 02/21/20 09:25 Dose: 40 mg Documented by: Benzocaine/Menthol (Cepacol Lozenge) 1 each MUCOUS MEM Q2H PRN PRN Reason: Sore Throat Bisacodyl (Dulcolax) 10 mg RECTAL DAILY PRN PRN Reason: Constipation Clopidogrel Bisulfate (Plavix) 75 mg PO DAILY [facility] Last Admin: 02/21/20 09:25 Dose: 75 mg Documented by: Fluticasone Propionate (Flovent 110 Mcg Inhaler) 2 puff INHALATION RT-BID [facility] Last Admin: 02/21/20 19:44 Dose: 2 puff Documented by: Folic Acid (Folic Acid) 1 mg PO DAILY@1200 [facility] Last Admin: 02/21/20 12:28 Dose: 1 mg Documented by: Heparin Sodium (Porcine) (Heparin) 5,000 unit SQ Q8HR [facility] Last Admin: 02/21/20 15:19 Dose: 5,000 unit Documented by: Amiodarone HCl 150 mg/ (Dextrose/Water) 103 mls @ 618 mls/hr IV .Q10M PRN; Protocol PRN Reason: A.FIB/FLUTTER Amiodarone HCl 360 mg/ (Dextrose/Water) 200 mls @ 33.333 mls/hr IV .Q6H PRN; Protocol PRN Reason: A.FIB/FLUTTER Amiodarone HCl 300 mg/ (Dextrose/Water) 250 mls @ 25 mls/hr IV .Q10H PRN; Protocol PRN Reason: A.FIB/FLUTTER Albumin Human 250 ml/ IV (Solution) 250 mls @ 250 mls/hr IVPB Q1HR PRN PRN Reason: For Volume Stop: 02/22/20 12:15 Last Admin: 02/21/20 09:14 Dose: 250 mls/hr Documented by: Clevidipine 25 mg/ IV Solution 50 mls @ 2 mls/hr IV .Q24H JAVON; Protocol Last Admin: 02/21/20 14:26 Dose: Not Given Documented by: Lactated Ringer's (Lactated Ringers) 1,000 mls @ 50 mls/hr IV .Q20H JAVON Last Admin: 02/21/20 09:30 Dose: 50 mls/hr Documented by: Insulin Human Regular 100 unit (/ Sodium Chloride) 101 mls @ 0 mls/hr IV .Q0M JAVON; Protocol Last Titration: 02/21/20 20:44 Dose: 0 units/hr, 0 mls/hr Documented by: Ketorolac Tromethamine (Toradol) 15 mg IVP Q8HR [facility] Stop: 02/26/20 08:31 Last Admin: 02/21/20 15:19 Dose: 15 mg Documented by: Magnesium Hydroxide (Milk Of Magnesia) 2,400 mg PO BID PRN PRN Reason: Constipation Metoclopramide HCl (Reglan) 10 mg IVP Q4H PRN PRN Reason: Nausea And Vomiting Metoprolol Tartrate (Lopressor) 12.5 mg PO BID [facility] Last Admin: 02/21/20 09:26 Dose: 12.5 mg Documented by: Miscellaneous Information (Potassium Per Protocol) 1 each MISCELLANE DAILY PRN; Protocol PRN Reason: Per Protocol Miscellaneous Information (Magnesium Per Protocol) 1 each MISCELLANE DAILY PRN; Protocol PRN Reason: Per Protocol Miscellaneous Information (Phosphorus Per Protocol) 1 each MISCELLANE DAILY PRN; Protocol PRN Reason: Per Protocol Montelukast Sodium (Singulair) 10 mg PO [facility] Last Admin: 02/20/20 22:35 Dose: Not Given Documented by: Ondansetron HCl (Zofran) 4 mg IVP Q6HR PRN PRN Reason: Nausea And Vomiting Last Admin: 02/21/20 21:26 Dose: 4 mg Documented by: Pantoprazole Sodium (Protonix) 40 mg PO AC-BRKFST [facility] Phenobarbital (Luminal) 32.4 mg PO BID [facility] Last Admin: 02/21/20 09:32 Dose: 32.4 mg Documented by: Phenytoin Sodium (Dilantin) 100 mg PO TID [facility] Last Admin: 02/21/20 15:20 Dose: 100 mg Documented by: Senna/Docusate Sodium (Senokot-S) 2 each PO [facility] Sodium Chloride (Saline Flush) 10 ml IV BID [facility] Last Admin: 02/21/20 09:30 Dose: 10 ml Documented by: Thiamine HCl (Vitamin B-1) 100 mg PO DAILY@1200 [facility] Last Admin: 02/21/20 12:28 Dose: 100 mg Documented by: Physical examination: VITAL SIGNS: 100.6, 86, 20, 95/60, 99% on GENERAL: Sitting on a chair, awake EYES: Pupils equal. Conjunctiva normal. HEENT: External appearance of nose and ears normal, oral cavity grossly normal. NECK: JVD not raised; masses not palpable. HEART: First and second heart sounds are normal; no edema. LUNGS: Respiratory rate increased; decreased breath sounds, patient is 3 chest tubes ABDOMEN: Soft, nontender, liver spleen not palpable, no masses palpable. PSYCH: Tired but able to answer questions INVESTIGATIONS, reviewed in the clinical context: White count 4 hemoglobin 7.1 impression 4.3 creatinine 0.45 Previous testing White count 1.3 hemoglobin 8 platelets 350 potassium 4.5 bun 14 creatinine 0.51 TSH 2.2 LDL 69 2-D echocardiogram done at [facility] showed hypokinetic anterior wall and EF of 45% Cardiac catheterization done at [facility] showed left main disease and severe triple-vessel coronary artery disease Abdominal ultrasound-unremarkable Chest x-ray film personally reviewed by me-possibly some chronic scarring EKG tracing personally noted by me. Assessment: -Triple-vessel coronary bypass-February 19 -Acute non-Q-wave myocardial infarction POA -Severe left main and triple-vessel coronary artery disease per cardiac catheterization awaiting coronary bypass -Bicytopenia with a recent hemoglobin of 6.5 after 2 units of blood hemoglobin today is 8. As patient is going for coronary bypass tomorrow was given another unit of blood. -Chronic epilepsy -Polio causing some weakness on the left of the body -Primary osteoarthritis affecting the hands and knees Plan: -Continue current medication treatment plan. Care discussed with the patient. Patient Condition at Discharge: Stable Plan - Discharge Summary New Discharge Prescriptions: No Action Aspirin EC [Ecotrin] 325 mg PO DAILY Phenytoin Sodium Extended [Dilantin] 100 mg PO TID Cholecalciferol [Vitamin D3 (25 Mcg = 1000 Iu)] 1,000 unit PO DAILY Beclomethasone Dip 80 Mcg/Puff [Qvar 80 mcg] 2 puff INHALATION RT-BID PHENobarbital 32.4 mg PO BID Montelukast Sodium [Singulair] 10 mg PO HS Ipratropium-Albuterol Nebulize [Duoneb 0.5 mg-3 mg/3 ml Soln] 3 ml INHALATION RT-QID PRN PRN Reason: Shortness Of Breath Fexofenadine HCl [Jessica Allergy] 180 mg PO DAILY PRN PRN Reason: Allergy Symptoms Alendronate Sodium [Fosamax] 70 mg PO FR Albuterol Sulfate [Albuterol Sulfate Hfa] 2 puff PO RT-Q4H PRN PRN Reason: Shortness Of Breath Discharge Medication List Albuterol Sulfate [Albuterol Sulfate Hfa] 2 puff PO RT-Q4H PRN 02/18/20 [History] Alendronate Sodium [Fosamax] 70 mg PO FR 02/18/20 [History] Aspirin EC [Ecotrin] 325 mg PO DAILY 02/18/20 [History] Beclomethasone Dip 80 Mcg/Puff [Qvar 80 mcg] 2 puff INHALATION RT-BID 02/18/20 [History] Cholecalciferol [Vitamin D3 (25 Mcg = 1000 Iu)] 1,000 unit PO DAILY 02/18/20 [History] Fexofenadine HCl [Jessica Allergy] 180 mg PO DAILY PRN 02/18/20 [History] Ipratropium-Albuterol Nebulize [Duoneb 0.5 mg-3 mg/3 ml Soln] 3 ml INHALATION RT-QID PRN 02/18/20 [History] Montelukast Sodium [Singulair] 10 mg PO HS 02/18/20 [History] PHENobarbital 32.4 mg PO BID 02/18/20 [History] Phenytoin Sodium Extended [Dilantin] 100 mg PO TID 02/18/20 [History] Follow up Appointment(s)/Referral(s): Juan Diego Crooks MD [STAFF PHYSICIAN] - 2 Weeks [facility],Cardiac [NON-STAFF] - 4 Weeks (You will receive a phone call 4- 6 weeks after surgery for evaluation for cardiac rehab) Robel Gastelum MD [STAFF PHYSICIAN] - 4 Weeks [facility], [NON-STAFF] - Vahe Lorenzo DO [STAFF PHYSICIAN] - 2 Weeks Logan Crooks MD [STAFF PHYSICIAN] - 2 Weeks
[2020-02-21] MEDS: MONTELUKAST 10 MG TAB PO SCH (22:32)
[2020-02-21] MEDS: SENNOSIDES-DOCUSATE SODIUM 1 EACH TAB PO SCH (22:33)
[2020-02-21 22:59] LABS: Glucose,Whole Blood 141 mg/dL (75-99)
[2020-02-21] MEDS ORDERED: ALBUMIN HUMAN 5% 250 ML in EMPTY BAG 1 BAG IVPB ONE (23:14)
[2020-02-22 00:13] LABS: Glucose,Whole Blood 146 mg/dL (75-99)
[2020-02-22] MEDS: HYDROcodone/APAP 5-325MG 1 EACH TAB PO PRN ×2 (00:38→05:51)
[2020-02-22 01:00] LABS: Glucose,Whole Blood 146 mg/dL (75-99)
[2020-02-22 01:54] LABS: Glucose,Whole Blood 149 mg/dL (75-99)
[2020-02-22 03:08] LABS: Glucose,Whole Blood 140 mg/dL (75-99)
[2020-02-22 04:04] LABS: Glucose,Whole Blood 136 mg/dL (75-99)
[2020-02-22 05:44] LABS: Glucose,Whole Blood 140 mg/dL (75-99)
[2020-02-22 05:47] LABS: Ionized Calcium 4.5 mg/dL (4.5-5.3)
[2020-02-22 06:00] LABS: ALT 21 U/L (4-34); AST 61 U/L (14-36); African American GFR (CKD) >90 (>60 ml/min/1.73 sqM); Alkaline Phosphatase 35 U/L (38-126); Anion Gap 7 mmol/L; Blood Urea Nitrogen 17 mg/dL (7-17); Calcium 7.4 mg/dL (8.4-10.2); Carbon Dioxide 21 mmol/L (22-30); Chloride 97 mmol/L (98-107); Glucose 118 mg/dL (74-99); Non-African American GFR(CKD) >90 (>60 ml/min/1.73 sqM); Potassium 4.3 mmol/L (3.5-5.1); Sodium 125 mmol/L (137-145); Total Bilirubin 0.7 mg/dL (0.2-1.3); Total Protein 4.7 g/dL (6.3-8.2)
[2020-02-22 06:28] LABS: Anisocytosis Marked; Basophils % (A) 0 %; Eosinophils # (A) 0.1 k/uL (0-0.7); Eosinophils % (A) 2 %; HCT 20.2 % (34.0-46.0); Hypochromasia Slight; Lymphocytes # (A) 0.7 k/uL (1.0-4.8); Lymphocytes % (A) 12 %; MCH 35.8 pg (25.0-35.0); MCHC 32.5 g/dL (31.0-37.0); MCV 110.1 fL (80.0-100.0); Macrocytosis Marked; Mean Platelet Volume 9.1; Monocytes # (A) 0.2 k/uL (0-1.0); Monocytes % (A) 3 %; Neutrophils # (A) 4.7 k/uL (1.3-7.7); Neutrophils % (A) 83 %; Platelet Count 287 k/uL (150-450); RBC 1.84 m/uL (3.80-5.40); WBC 5.7 k/uL (3.8-10.6)
[2020-02-22 06:32] LABS: HGB 6.6 gm/dL (11.4-16.0)
[2020-02-22 06:58] LABS: Glucose,Whole Blood 149 mg/dL (75-99)
[2020-02-22] MEDS: IPRATROPIUM-ALBUTEROL 3 ML NEB INHALATION SCH ×4 (07:27→20:13)
[2020-02-22] MEDS: FLUTICASONE 110 MCG INHALER INHALATION SCH ×2 (07:27→20:13)
--- NOTE | 2020-02-22 07:34 | XR ---
EXAMINATION TYPE: XR chest 1V portable DATE OF EXAM: 02/22/2020 COMPARISON: NONE HISTORY: SOB, Follow Up FINDINGS: Mediastinal drain has been removed. Bilateral chest tubes are in place. Small apical pneumothoraces p ersists. Persistent basilar atelectasis and/or infiltrates with pleural effusions with no significant interval change. Subcutaneous air along the left chest wall persists. No change in bibasilar opacities. Stable appearance of the cardio-mediastinal structures at this time. Pleural effusion unchanged. IMPRESSION: 1. Small apical pneumothoraces persists. Persistent basilar atelectasis and/or infiltrates with pleu ral effusions with no significant interval change. Subcutaneous air along the left chest wall persist s.
[2020-02-22 07:50] LABS: Glucose,Whole Blood 152 mg/dL (75-99)
[2020-02-22] MEDS ORDERED: FUROSEMIDE 10 MG/ML 2 ML VIAL IV ONE ×2 (08:05→11:56)
[2020-02-22 08:56] LABS: Glucose,Whole Blood 133 mg/dL (75-99)
[2020-02-22] MEDS: ATORVASTATIN 40 MG TAB PO SCH (09:01)
[2020-02-22] MEDS: KETOROLAC 30 MG/ML 1 ML VIAL IVP SCH (09:01)
[2020-02-22] MEDS: ASPIRIN 325 MG TAB PO SCH (09:02)
[2020-02-22] MEDS: HEPARIN SODIUM,PORCINE 5,000 UNIT/ML 1 ML VIAL SQ SCH ×3 (09:02→23:39)
[2020-02-22] MEDS: PANTOPRAZOLE 40 MG TABLET PO SCH (09:02)
[2020-02-22] MEDS: PHENobarbital 32.4 MG TAB PO SCH ×2 (09:02→20:46)
[2020-02-22] MEDS: CLOPIDOGREL 75 MG TAB PO SCH (09:02)
[2020-02-22] MEDS: METOPROLOL TARTRATE 25 MG TAB PO SCH ×2 (09:02→20:46)
[2020-02-22] MEDS: PHENYTOIN SODIUM EXTENDED 100 MG CAP PO SCH ×4 (09:06→20:50)
[2020-02-22] MEDS ORDERED: ATROPINE SULFATE 0.1 MG/ML 10ML SYRINGE ONE (09:21)
--- NOTE | 2020-02-22 11:15 | P.PN ---
Subjective Progress Note Date: 02/22/20 Principal diagnosis: Severe calcific coronary artery disease with left main disease, non-STEMI this admission. Previous medical history of macrocytic anemia, polio, seizures, pneu monia, and family history of premature coronary artery disease. POD #2 off-pump coronary artery bypass graft 3 with left internal mammary artery to the left anterior descending artery, reverse saphenous vein graft to the second obtuse marginal artery and posterior descending coronary artery with endovascular vein harvest of the left greater saphenous vein from mid calf to the groin, left atrial appendage exclusion with 35 mm AtriCure clip and aspirate and biopsy of the sternal bone marrow. Postoperative acute blood loss anemia, expected given patient's preoperative history of macrocytic anemia Postoperative hyponatremia, unexpected The patient is currently sitting up in the recliner in the intensive care unit in no acute distress. She does complain of pain at her chest tube sites, denies shortness of breath. Currently in normal sinus rhythm and hemodynamically stable on no inotropes or pressors. Right internal jugular Cordis, right brachial arterial line present. Hemoglobin 6.6 this morning, was 7.1 yesterday. Objective - Vital Signs Vital signs: Vital Signs Temp 98.7 F 02/22/20 04:00 Pulse 92 02/22/20 07:40 Resp 25 H 02/22/20 07:00 BP 111/52 02/22/20 07:00 Pulse Ox 95 02/22/20 07:00 Intake & Output 02/21/20 02/22/20 02/22/20 18:59 06:59 18:59 Intake Total 2269.394 879.508 56 Output Total 604 435 30 Balance 1665.394 444.508 26 Weight 65.7 kg 65.6 kg Intake: IV 712.5 672 56 CO/CI 30 Lactated Ringers 1,000 ml 600 600 50 @ 50 mls/hr IV .Q20H JAVON Rx#:[id number] NS PRESSURE BAG 81 72 6 Nitro 1.5 Intake, IV Titration 556.894 7.508 Amount Albumin Human 5% 250 ml 500 In Empty Bag 1 bag @ 250 mls/hr IVPB Q1HR PRN Rx#: [id number] Insulin Regular 100 unit 6.894 7.508 In Sodium Chloride 0.9% 100 ml @ Per Protocol IV .Q0M JAVON Rx#:[id number] ceFAZolin 2 gm In Sodium 50 Chloride 0.9% 50 ml @ 100 mls/hr IVPB Q8HR JAVON Rx# :[id number] Oral 1000 200 Output: Chest Tube Drainage 357 130 CHEST TUBE MEDISTINAL 85 CHEST TUBE RIGHT/LEFT 130 PLUERAL Left Pleural Chest Tube 79 50 Right Pleural Chest Tube 63 80 Urine 247 305 30 Other: Voiding Method Indwelling Catheter Indwelling Catheter ABP, PAP, CO, CI - Last Documented Arterial Blood Pressure 131/47 Pulmonary Artery Pressure 29/13 Cardiac Output 5.2 Cardiac Index 3.1 - Constitutional General appearance: Present: cooperative, no acute distress, thin - Respiratory Details: Lungs sounds diminished bilaterally. Respirations even, nonlabored. Currently on with oxygen saturation 96%. Barely able to achieve 500 mL on her incentive spirometry. Weak cough. Right pleural chest tube present to continuous wall suction, 50 mL thin serous drainage overnight, 300 mL in the last 24 hours, no air leak present. Left pleural chest tube present to continuous wall suction, 30 mL thin serous drainage or night, 350 mL in the last 4 hours, no air leak present. - Cardiovascular Details: S1, S2 present. Regular rate and rhythm, sinus rhythm on telemetry with heart rate in the 70-80s. Sternum stable. Palpable peripheral pulses bilaterally. N o edema present. No calf pain or tenderness noted. Right internal jugular Cordis, right brachial arterial line present. Heart hugger in place with patient demonstrating appropriate use. Antiembolism stockings, SCDs present. - Gastrointestinal Gastrointestinal Comment(s): Abdomen soft, nontender, nondistended. Active bowel sounds present 4 quadrants. Tolerating full liquid diet. Negative flatus. - Genitourinary Genitourinary Comment(s): Velazquez present draining clear, yellow urine. Output 25-30 mL per hour overnight. - Integumentary Integumentary Comment(s): Skin is warm and dry with evidence of good perfusion. Anterior chest incision well approximated and covered with dry intact dressing. Left lower extremities EVH site well approximated. - Neurologic Neurologic: Present: CNII-XII intact - Musculoskeletal Musculoskeletal: Present: gait normal, strength equal bilaterally - Psychiatric Psychiatric: Present: A&O x's 3, appropriate affect, intact judgment & insight - Allied health notes Allied health notes reviewed: nursing - Labs CBC & Chem 7: 02/22/20 06:00 02/22/20 04:55 Labs: Abnormal Lab Results - Last 24 Hours (Table) 02/19/20 02/21/20 02/21/20 Range/Units 07:18 11:19 12:18 RBC (3.80-5.40) m/uL Hgb (11.4-16.0) gm/dL Hct (34.0-46.0) % MCV (80.0-100.0) fL MCH (25.0-35.0) pg RDW (11.5-15.5) % Lymphocytes # (1.0-4.8) k/uL Macrocytosis Sodium (137-145) mmol/L Chloride (98-107) mmol/L Carbon Dioxide (22-30) mmol/L Glucose (74-99) mg/dL POC Glucose (mg/dL) 144 H 110 H (75-99) mg/dL Calcium (8.4-10.2) mg/dL AST (14-36) U/L Alkaline Phosphatase (38-126) U/L Total Protein (6.3-8.2) g/dL Albumin (3.5-5.0) g/dL Methylmalonic Acid 0.55 H (<0.40) umol/L 02/21/20 02/21/20 02/21/20 Range/Units 13:05 14:15 15:09 RBC (3.80-5.40) m/uL Hgb (11.4-16.0) gm/dL Hct (34.0-46.0) % MCV (80.0-100.0) fL MCH (25.0-35.0) pg RDW (11.5-15.5) % Lymphocytes # (1.0-4.8) k/uL Macrocytosis Sodium (137-145) mmol/L Chloride (98-107) mmol/L Carbon Dioxide (22-30) mmol/L Glucose (74-99) mg/dL POC Glucose (mg/dL) 173 H 100 H 105 H (75-99) mg/dL Calcium (8.4-10.2) mg/dL AST (14-36) U/L Alkaline Phosphatase (38-126) U/L Total Protein (6.3-8.2) g/dL Albumin (3.5-5.0) g/dL Methylmalonic Acid (<0.40) umol/L 02/21/20 02/21/20 02/21/20 Range/Units 16:10 16:58 17:57 RBC (3.80-5.40) m/uL Hgb (11.4-16.0) gm/dL Hct (34.0-46.0) % MCV (80.0-100.0) fL MCH (25.0-35.0) pg RDW (11.5-15.5) % Lymphocytes # (1.0-4.8) k/uL Macrocytosis Sodium (137-145) mmol/L Chloride (98-107) mmol/L Carbon Dioxide (22-30) mmol/L Glucose (74-99) mg/dL POC Glucose (mg/dL) 121 H 138 H 232 H (75-99) mg/dL Calcium (8.4-10.2) mg/dL AST (14-36) U/L Alkaline Phosphatase (38-126) U/L Total Protein (6.3-8.2) g/dL Albumin (3.5-5.0) g/dL Methylmalonic Acid (<0.40) umol/L 02/21/20 02/21/20 02/21/20 Range/Units 19:06 22:11 22:57 RBC (3.80-5.40) m/uL Hgb (11.4-16.0) gm/dL Hct (34.0-46.0) % MCV (80.0-100.0) fL MCH (25.0-35.0) pg RDW (11.5-15.5) % Lymphocytes # (1.0-4.8) k/uL Macrocytosis Sodium (137-145) mmol/L Chloride (98-107) mmol/L Carbon Dioxide (22-30) mmol/L Glucose (74-99) mg/dL POC Glucose (mg/dL) 194 H 110 H 141 H (75-99) mg/dL Calcium (8.4-10.2) mg/dL AST (14-36) U/L Alkaline Phosphatase (38-126) U/L Total Protein (6.3-8.2) g/dL Albumin (3.5-5.0) g/dL Methylmalonic Acid (<0.40) umol/L 02/22/20 02/22/20 02/22/20 Range/Units 00:11 00:59 01:52 RBC (3.80-5.40) m/uL Hgb (11.4-16.0) gm/dL Hct (34.0-46.0) % MCV (80.0-100.0) fL MCH (25.0-35.0) pg RDW (11.5-15.5) % Lymphocytes # (1.0-4.8) k/uL Macrocytosis Sodium (137-145) mmol/L Chloride (98-107) mmol/L Carbon Dioxide (22-30) mmol/L Glucose (74-99) mg/dL POC Glucose (mg/dL) 146 H 146 H 149 H (75-99) mg/dL Calcium (8.4-10.2) mg/dL AST (14-36) U/L Alkaline Phosphatase (38-126) U/L Total Protein (6.3-8.2) g/dL Albumin (3.5-5.0) g/dL Methylmalonic Acid (<0.40) umol/L 02/22/20 02/22/20 02/22/20 Range/Units 03:07 04:01 04:55 RBC (3.80-5.40) m/uL Hgb (11.4-16.0) gm/dL Hct (34.0-46.0) % MCV (80.0-100.0) fL MCH (25.0-35.0) pg RDW (11.5-15.5) % Lymphocytes # (1.0-4.8) k/uL Macrocytosis Sodium 125 L (137-145) mmol/L Chloride 97 L (98-107) mmol/L Carbon Dioxide 21 L (22-30) mmol/L Glucose 118 H (74-99) mg/dL POC Glucose (mg/dL) 140 H 136 H (75-99) mg/dL Calcium 7.4 L (8.4-10.2) mg/dL AST 61 H (14-36) U/L Alkaline Phosphatase 35 L (38-126) U/L Total Protein 4.7 L (6.3-8.2) g/dL Albumin 3.0 L (3.5-5.0) g/dL Methylmalonic Acid (<0.40) umol/L 02/22/20 02/22/20 02/22/20 Range/Units 05:41 06:00 06:57 RBC 1.84 L (3.80-5.40) m/uL Hgb 6.6 L* (11.4-16.0) gm/dL Hct 20.2 L (34.0-46.0) % MCV 110.1 H (80.0-100.0) fL MCH 35.8 H (25.0-35.0) pg RDW 25.0 H (11.5-15.5) % Lymphocytes # 0.7 L (1.0-4.8) k/uL Macrocytosis Marked A Sodium (137-145) mmol/L Chloride (98-107) mmol/L Carbon Dioxide (22-30) mmol/L Glucose (74-99) mg/dL POC Glucose (mg/dL) 140 H 149 H (75-99) mg/dL Calcium (8.4-10.2) mg/dL AST (14-36) U/L Alkaline Phosphatase (38-126) U/L Total Protein (6.3-8.2) g/dL Albumin (3.5-5.0) g/dL Methylmalonic Acid (<0.40) umol/L 02/22/20 02/22/20 Range/Units 07:48 08:54 RBC (3.80-5.40) m/uL Hgb (11.4-16.0) gm/dL Hct (34.0-46.0) % MCV (80.0-100.0) fL MCH (25.0-35.0) pg RDW (11.5-15.5) % Lymphocytes # (1.0-4.8) k/uL Macrocytosis Sodium (137-145) mmol/L Chloride (98-107) mmol/L Carbon Dioxide (22-30) mmol/L Glucose (74-99) mg/dL POC Glucose (mg/dL) 152 H 133 H (75-99) mg/dL Calcium (8.4-10.2) mg/dL AST (14-36) U/L Alkaline Phosphatase (38-126) U/L Total Protein (6.3-8.2) g/dL Albumin (3.5-5.0) g/dL Methylmalonic Acid (<0.40) umol/L - Imaging and Cardiology Chest x-ray: report reviewed, image reviewed Assessment and Plan Assessment: 1. Severe calcific triple-vessel coronary artery disease with left main disease, status post three-vessel CABG 2. Macrocytic anemia unknown origin, status post bone marrow biopsy of the sternum 3. Seizure disorder, currently treated with Dilantin and phenobarb 4. History of polio 5. History of pneumonia, last episode greater than 6 months ago 6. Family history of premature coronary artery disease 7. Lifelong nonsmoker 8. Postoperative acute blood loss anemia, expected 9. Postoperative hyponatremia, unexpected Plan: 1. Continue aspirin, statin, beta manuel therapy. Will increase beta manuel therapy as tolerated. 2. Encourage incentive spirometry use 10 times every hour while awake 3. Increase activity, ambulate as tolerated. PT/OT/cardiac rehab following 4. Will monitor daily labs and x-rays. Electrolyte replacement per protocol. No blood transfusion today. Will give 20 mg IV push Lasix today 5. GI/DVT prophylaxis 6. Pain controlled current medication regimen. 7. Insulin management per primary care service. 8. Discontinue Cordis, arterial line 9. Continue phenobarbital and Dilantin for seizure control 10. Bone marrow biopsy results pending. Hematology following. 11. Will discontinue right and left pleural chest tubes 12. Velazquez catheter discontinued. May bladder scan and straight cathed for greater than 300 mL residual 13. Nephrology consulted for hyponatremia. 1500 mL fluid restriction added 14. More recommendations to follow Time with Patient: Greater than 30
[2020-02-22 11:44] VITALS: BMI 21.9
[2020-02-22] MEDS: ONDANSETRON 4 MG/2 ML VIAL IVP PRN (11:51)
[2020-02-22 12:03] LABS: Glucose,Whole Blood 137 mg/dL (75-99)
--- NOTE | 2020-02-22 12:05 | P.PN ---
Subjective Progress Note Date: 02/22/20 Principal diagnosis: CABG 3, postoperative day #2 The patient is seen today in follow-up in the intensive care unit. She is currently up in a chair at the bedside. Awake and alert in no acute distress. Maintaining O2 saturations in the 90s on room air. She is status post 2 units of packed red blood cells this admission. Her current hemoglobin is 6.6. White count 5.7. Platelets 287. Sodium 125. Potassium 4.3. Bicarb 21. Creatinine 0.52. She remains on bronchodilators. Pulling only 500 ML's on the incentive spirometer. Chest x-ray reveals small apical pneumothoraces persist. Persistent basilar atelectasis/infiltrates with pleural effusions. No worsening compared to yesterday. Subcutaneous air along the left chest wall. 20 mg of IV Lasix ordered today. Currently receiving no IV fluids. Objective - Vital Signs Vital signs: Vital Signs Temp 98.7 F 02/22/20 04:00 Pulse 79 02/22/20 11:19 Resp 25 H 02/22/20 07:00 BP 111/52 02/22/20 07:00 Pulse Ox 95 02/22/20 07:00 Intake & Output 02/21/20 02/22/20 02/22/20 18:59 06:59 18:59 Intake Total 2269.394 879.508 56 Output Total 604 435 30 Balance 1665.394 444.508 26 Weight 65.7 kg 65.6 kg 65.6 kg Intake: IV 712.5 672 56 CO/CI 30 Lactated Ringers 1,000 ml 600 600 50 @ 50 mls/hr IV .Q20H JAVON Rx#:[id number] NS PRESSURE BAG 81 72 6 Nitro 1.5 Intake, IV Titration 556.894 7.508 Amount Albumin Human 5% 250 ml 500 In Empty Bag 1 bag @ 250 mls/hr IVPB Q1HR PRN Rx#: [id number] Insulin Regular 100 unit 6.894 7.508 In Sodium Chloride 0.9% 100 ml @ Per Protocol IV .Q0M JAVON Rx#:[id number] ceFAZolin 2 gm In Sodium 50 Chloride 0.9% 50 ml @ 100 mls/hr IVPB Q8HR JAVON Rx# :[id number] Oral 1000 200 Output: Chest Tube Drainage 357 130 CHEST TUBE MEDISTINAL 85 CHEST TUBE RIGHT/LEFT 130 PLUERAL Left Pleural Chest Tube 79 50 Right Pleural Chest Tube 63 80 Urine 247 305 30 Other: Voiding Method Indwelling Catheter Indwelling Catheter ABP, PAP, CO, CI - Last Documented Arterial Blood Pressure 131/47 Pulmonary Artery Pressure 29/13 Cardiac Output 5.2 Cardiac Index 3.1 - Exam - Constitutional General appearance: Present: Alert pleasant 79-year-old female patient, on room air, cooperative, no acute distress - Respiratory Details: Lungs sounds diminished bilaterally. Respirations even, nonlabored. Currently on room air with oxygen saturation 95%. Barely able to achieve 500 mL on her incentive spirometry. Weak cough. Right pleural chest tube present to continuous wall suction, 50 mL thin serous drainage overnight, 300 mL in the last 24 hours, no air leak present. Left pleural chest tube present to continuous wall suction, 30 mL thin serous drainage or night, 350 mL in the last 4 hours, no air leak present. - Cardiovascular Details: S1, S2 present. Regular rate and rhythm, sinus rhythm on telemetry with heart rate in the 70-80s. Sternum stable. Palpable peripheral pulses bilaterally. No edema present. No calf pain or tenderness noted. Right internal jugular Cordis, right brachial arterial line present. Heart hugger in place with patient demonstrating appropriate use. Antiembolism stockings, SCDs present. - Gastrointestinal Gastrointestinal Comment(s): Abdomen soft, nontender, nondistended. Active bowel sounds present 4 quadrants. Tolerating full liquid diet. Negative flatus. - Genitourinary Genitourinary Comment(s): Velazquez present draining clear, yellow urine. Output 25-30 mL per hour overnight. - Integumentary Integumentary Comment(s): Skin is warm and dry with evidence of good perfusion. Anterior chest incision well approximated and covered with dry intact dressing. Left lower extremities EVH site well approximated. - Neurologic Neurologic: Present: CNII-XII intact - Musculoskeletal Musculoskeletal: Present: gait normal, strength equal bilaterally - Psychiatric Psychiatric: Present: A&O x's 3, appropriate affect, intact judgment & insight - Allied health notes Allied health notes reviewed: nursing - Labs CBC & Chem 7: 02/22/20 06:00 02/22/20 04:55 Labs: Abnormal Lab Results - Last 24 Hours (Table) 02/19/20 02/21/20 02/21/20 Range/Units 07:18 12:18 13:05 RBC (3.80-5.40) m/uL Hgb (11.4-16.0) gm/dL Hct (34.0-46.0) % MCV (80.0-100.0) fL MCH (25.0-35.0) pg RDW (11.5-15.5) % Lymphocytes # (1.0-4.8) k/uL Macrocytosis Sodium (137-145) mmol/L Chloride (98-107) mmol/L Carbon Dioxide (22-30) mmol/L Glucose (74-99) mg/dL POC Glucose (mg/dL) 110 H 173 H (75-99) mg/dL Calcium (8.4-10.2) mg/dL AST (14-36) U/L Alkaline Phosphatase (38-126) U/L Total Protein (6.3-8.2) g/dL Albumin (3.5-5.0) g/dL Methylmalonic Acid 0.55 H (<0.40) umol/L 02/21/20 02/21/20 02/21/20 Range/Units 14:15 15:09 16:10 RBC (3.80-5.40) m/uL Hgb (11.4-16.0) gm/dL Hct (34.0-46.0) % MCV (80.0-100.0) fL MCH (25.0-35.0) pg RDW (11.5-15.5) % Lymphocytes # (1.0-4.8) k/uL Macrocytosis Sodium (137-145) mmol/L Chloride (98-107) mmol/L Carbon Dioxide (22-30) mmol/L Glucose (74-99) mg/dL POC Glucose (mg/dL) 100 H 105 H 121 H (75-99) mg/dL Calcium (8.4-10.2) mg/dL AST (14-36) U/L Alkaline Phosphatase (38-126) U/L Total Protein (6.3-8.2) g/dL Albumin (3.5-5.0) g/dL Methylmalonic Acid (<0.40) umol/L 02/21/20 02/21/20 02/21/20 Range/Units 16:58 17:57 19:06 RBC (3.80-5.40) m/uL Hgb (11.4-16.0) gm/dL Hct (34.0-46.0) % MCV (80.0-100.0) fL MCH (25.0-35.0) pg RDW (11.5-15.5) % Lymphocytes # (1.0-4.8) k/uL Macrocytosis Sodium (137-145) mmol/L Chloride (98-107) mmol/L Carbon Dioxide (22-30) mmol/L Glucose (74-99) mg/dL POC Glucose (mg/dL) 138 H 232 H 194 H (75-99) mg/dL Calcium (8.4-10.2) mg/dL AST (14-36) U/L Alkaline Phosphatase (38-126) U/L Total Protein (6.3-8.2) g/dL Albumin (3.5-5.0) g/dL Methylmalonic Acid (<0.40) umol/L 02/21/20 02/21/20 02/22/20 Range/Units 22:11 22:57 00:11 RBC (3.80-5.40) m/uL Hgb (11.4-16.0) gm/dL Hct (34.0-46.0) % MCV (80.0-100.0) fL MCH (25.0-35.0) pg RDW (11.5-15.5) % Lymphocytes # (1.0-4.8) k/uL Macrocytosis Sodium (137-145) mmol/L Chloride (98-107) mmol/L Carbon Dioxide (22-30) mmol/L Glucose (74-99) mg/dL POC Glucose (mg/dL) 110 H 141 H 146 H (75-99) mg/dL Calcium (8.4-10.2) mg/dL AST (14-36) U/L Alkaline Phosphatase (38-126) U/L Total Protein (6.3-8.2) g/dL Albumin (3.5-5.0) g/dL Methylmalonic Acid (<0.40) umol/L 02/22/20 02/22/20 02/22/20 Range/Units 00:59 01:52 03:07 RBC (3.80-5.40) m/uL Hgb (11.4-16.0) gm/dL Hct (34.0-46.0) % MCV (80.0-100.0) fL MCH (25.0-35.0) pg RDW (11.5-15.5) % Lymphocytes # (1.0-4.8) k/uL Macrocytosis Sodium (137-145) mmol/L Chloride (98-107) mmol/L Carbon Dioxide (22-30) mmol/L Glucose (74-99) mg/dL POC Glucose (mg/dL) 146 H 149 H 140 H (75-99) mg/dL Calcium (8.4-10.2) mg/dL AST (14-36) U/L Alkaline Phosphatase (38-126) U/L Total Protein (6.3-8.2) g/dL Albumin (3.5-5.0) g/dL Methylmalonic Acid (<0.40) umol/L 02/22/20 02/22/20 02/22/20 Range/Units 04:01 04:55 05:41 RBC (3.80-5.40) m/uL Hgb (11.4-16.0) gm/dL Hct (34.0-46.0) % MCV (80.0-100.0) fL MCH (25.0-35.0) pg RDW (11.5-15.5) % Lymphocytes # (1.0-4.8) k/uL Macrocytosis Sodium 125 L (137-145) mmol/L Chloride 97 L (98-107) mmol/L Carbon Dioxide 21 L (22-30) mmol/L Glucose 118 H (74-99) mg/dL POC Glucose (mg/dL) 136 H 140 H (75-99) mg/dL Calcium 7.4 L (8.4-10.2) mg/dL AST 61 H (14-36) U/L Alkaline Phosphatase 35 L (38-126) U/L Total Protein 4.7 L (6.3-8.2) g/dL Albumin 3.0 L (3.5-5.0) g/dL Methylmalonic Acid (<0.40) umol/L 02/22/20 02/22/20 02/22/20 Range/Units 06:00 06:57 07:48 RBC 1.84 L (3.80-5.40) m/uL Hgb 6.6 L* (11.4-16.0) gm/dL Hct 20.2 L (34.0-46.0) % MCV 110.1 H (80.0-100.0) fL MCH 35.8 H (25.0-35.0) pg RDW 25.0 H (11.5-15.5) % Lymphocytes # 0.7 L (1.0-4.8) k/uL Macrocytosis Marked A Sodium (137-145) mmol/L Chloride (98-107) mmol/L Carbon Dioxide (22-30) mmol/L Glucose (74-99) mg/dL POC Glucose (mg/dL) 149 H 152 H (75-99) mg/dL Calcium (8.4-10.2) mg/dL AST (14-36) U/L Alkaline Phosphatase (38-126) U/L Total Protein (6.3-8.2) g/dL Albumin (3.5-5.0) g/dL Methylmalonic Acid (<0.40) umol/L 02/22/20 Range/Units 08:54 RBC (3.80-5.40) m/uL Hgb (11.4-16.0) gm/dL Hct (34.0-46.0) % MCV (80.0-100.0) fL MCH (25.0-35.0) pg RDW (11.5-15.5) % Lymphocytes # (1.0-4.8) k/uL Macrocytosis Sodium (137-145) mmol/L Chloride (98-107) mmol/L Carbon Dioxide (22-30) mmol/L Glucose (74-99) mg/dL POC Glucose (mg/dL) 133 H (75-99) mg/dL Calcium (8.4-10.2) mg/dL AST (14-36) U/L Alkaline Phosphatase (38-126) U/L Total Protein (6.3-8.2) g/dL Albumin (3.5-5.0) g/dL Methylmalonic Acid (<0.40) umol/L Assessment and Plan Assessment: 1 Severe triple-vessel coronary artery disease status post coronary artery bypass grafting 3 utilizing the AGRAWAL to the LAD, reverse saphenous vein grafts to the obtuse marginal artery and posterior descending artery. Postoperative day #2. 2 Postop acute blood loss anemia, expected outcome of surgery, current hemoglo bin 6.6 status post 2 units packed red blood cells thus far this admission 3 Hyponatremia, suspect secondary to hypervolemia 3 History of macrocytic anemia, status post bone marrow biopsy, results pending 4 History of polio 5 History of seizure disorder Plan: The patient was seen and evaluated by Dr. Velazco Chest x-ray and labs reviewed IV Lasix ordered per CT services Nephrology consult for hyponatremia Again encouraged regarding the increased use the incentive spirometer and cough and deep breathing exercises Continue bronchodilators Increase her activity as tolerated We will continue to follow and make further recommendations based on her clinical status I, the cosigning physician, performed a history & physical examination of the patient. Lungs sounds with crackles in the bilateral posterior bases. Maintaining good O2 saturations in the 90s on room air. I discussed the assessment and plan of care with my nurse practitioner, Sarita Guerrero. I attest to the above note as dictated by her.
[2020-02-22] MEDS: INSULIN ASPART (NovoLOG) 100 UNIT/ML VIAL SQ SCH ×3 (12:48→20:50)
--- NOTE | 2020-02-22 13:20 | P.NPCON ---
History of Present Illness - Reason for Consult hyponatremia - History of Present Illness Reason for consultation: Hyponatremia History of present illness: A sign patient is a 79-year-old female seen in renal consultation for hyponatremia. Patient initially presented to [facility] with weakness. She was noted to be anemic and received blood transfusion. She subsequently had an acute myocardial infarction and was transferred to [facility]. She underwent CABG on February 19. Patient's sodium level was 138 on February 18 and has been progressively decreasing and is down to 125 as of this morning. Oral intake has been fair. She has been drinking quite a bit but not excessive amounts. She is receiving Toradol for pain. Patient did receive quite a bit of fluids during the surgery but is not on any maintenance fluids at this time. She did receive a dose of IV Lasix 20 mg this morning and is scheduled to receive another dose after blood transfusion completed. No edema. No vomiting or diarrhea. No history of kidney disease. Creatinine 0.5 today. Vital signs are stable. General: The patient appeared well nourished and normally developed. HEENT: Head exam is unremarkable. Neck is without jugular venous distension. LUNGS: Breath sounds decreased. HEART: Rate and Rhythm are regular. ABDOMEN: Soft, nontender. EXTREMITITES: No edema. Past Medical History Past Medical History: Coronary Artery Disease (CAD), Myocardial Infarction ([place]), Pneumonia, Seizure Disorder Additional Past Medical History / Comment(s): polio, shingles Last Myocardial Infarction Date:: ? History of Any Multi-Drug Resistant Organisms: None Reported Past Surgical History: Appendectomy, Hysterectomy, Tonsillectomy Additional Past Surgical History / Comment(s): hemmorhoid surgery x 3, breast biopsy x3 Past Anesthesia/Blood Transfusion Reactions: No Reported Reaction Past Psychological History: No Psychological Hx Reported Smoking Status: Never smoker Past Alcohol Use History: None Reported Past Drug Use History: None Reported - Past Family History Mother Family Medical History: Coronary Artery Disease (CAD) Additional Family Medical History / Comment(s): glucoma, ruptured aorta Father Family Medical History: Chest Pain / Angina, Coronary Artery Disease (CAD) Additional Family Medical History / Comment(s): CABG (Vineberg procedure at 54 years old) Sister(s) Family Medical History: Cancer Additional Family Medical History / Comment(s): Breast cancer with double mastectomy Medications and Allergies Home Medications Medication Instructions Recorded Confirmed Type Albuterol Sulfate [Albuterol 2 puff PO RT-Q4H PRN 02/18/20 02/18/20 History Sulfate Hfa] Alendronate Sodium [Fosamax] 70 mg PO FR 02/18/20 02/18/20 History Aspirin EC [Ecotrin] 325 mg PO DAILY 02/18/20 02/18/20 History Beclomethasone Dip 80 Mcg/Puff 2 puff INHALATION RT-BID 02/18/20 02/18/20 History [Qvar 80 mcg] Cholecalciferol [Vitamin D3 (25 1,000 unit PO DAILY 02/18/20 02/18/20 History Mcg = 1000 Iu)] Fexofenadine HCl [Jessica Allergy] 180 mg PO DAILY PRN 02/18/20 02/18/20 History Ipratropium-Albuterol Nebulize 3 ml INHALATION RT-QID PRN 02/18/20 02/18/20 History [Duoneb 0.5 mg-3 mg/3 ml Soln] Montelukast Sodium [Singulair] 10 mg PO HS 02/18/20 02/18/20 History PHENobarbital 32.4 mg PO BID 02/18/20 02/18/20 History Phenytoin Sodium Extended 100 mg PO TID 02/18/20 02/18/20 History [Dilantin] Allergies Allergy/AdvReac Type Severity Reaction Status Date / Time No Known Allergies Allergy Verified 02/18/20 18:11 Physical Exam Vitals: Vital Signs Temp Pulse Resp BP Pulse Ox 02/22/20 12:40 99.0 F 87 16 98/54 97 02/22/20 11:19 79 02/22/20 11:10 81 02/22/20 07:40 92 02/22/20 07:27 91 02/22/20 07:00 86 25 H 111/52 95 02/22/20 06:00 96 21 96 02/22/20 05:00 84 15 98 02/22/20 04:00 98.7 F 98 22 110/61 96 02/22/20 03:00 82 20 97/48 99 02/22/20 02:00 80 20 103/55 99 02/22/20 01:00 85 23 108/60 99 02/22/20 00:00 81 23 104/57 99 02/21/20 23:00 87 24 98 02/21/20 22:00 92 26 H 107/58 97 02/21/20 21:00 101 H 23 112/51 100 02/21/20 20:00 99 24 90/72 98 02/21/20 19:57 100 02/21/20 19:46 87 02/21/20 19:00 105 H 43 H 94/79 98 02/21/20 18:00 93 31 H 111/55 100 02/21/20 17:00 89 23 111/55 98 02/21/20 16:26 87 02/21/20 16:16 87 02/21/20 16:14 84 02/21/20 16:00 100.6 F H 86 27 H 95/60 99 02/21/20 15:00 87 19 98 02/21/20 14:00 86 26 H 94/50 98 Intake and Output 02/21/20 02/22/20 02/22/20 22:59 06:59 14:59 Intake Total 1155.508 448 56 Output Total 285 310 30 Balance 870.508 138 26 Intake: IV 448 448 56 Lactated Ringers 1,000 ml 400 400 50 @ 50 mls/hr IV .Q20H JAVON Rx#:[id number] NS PRESSURE BAG 48 48 6 Intake, IV Titration 7.508 0 Amount Insulin Regular 100 unit 7.508 0 In Sodium Chloride 0.9% 100 ml @ Per Protocol IV .Q0M JAVON Rx#:[id number] Oral 700 Blood Product 0 Rc As-3 Unit 0 [id number] Output: Chest Tube Drainage 138 80 Left Pleural Chest Tube 61 30 Right Pleural Chest Tube 77 50 Urine 147 230 30 Other: Voiding Method Indwelling Catheter Indwelling Catheter Weight 65.6 kg 65.6 kg ABP, PAP, CO, CI - Last 8 Hours Arterial Blood Pressure 131/47 Arterial Blood Pressure 143/51 Results - Lab Results Most recent lab results ABG pH 7.34 (7.35-7.45) L 02/20/20 15:53 ABG pCO2 42 mmHg (35-45) 02/20/20 15:53 ABG pO2 181 mmHg (83-108) H 02/20/20 15:53 ABG HCO3 23 mmol/L (21-25) 02/20/20 15:53 ABG O2 Saturation 99.5 % (94-97) H 02/20/20 15:53 Calcium 7.4 mg/dL (8.4-10.2) L 02/22/20 04:55 Magnesium 2.0 mg/dL (1.6-2.3) 02/21/20 04:40 02/22/20 06:00 02/22/20 04:55 Assessment and Plan Plan: Assessment: 1. Acute hyponatremia. This is secondary to the fluids as well as poor solute intake and use of nonsteroidals. Sodium level 125 today. 2. Non-ST with his myocardial infarction status post CABG February 19. 3. Acute blood loss anemia scheduled for blood transfusion today. Plan: 1500 mL fluid restriction. Encourage solute intake, particularly protein. Add ensure 3 times a day. Discontinue nonsteroidals. Check serum and urine osmolality and urine sodium. She is scheduled to receive another dose of Lasix post blood transfusion. Repeat sodium level this evening. Thank you for the consultation. I will continue to follow the patient with you during her hospital stay.
--- NOTE | 2020-02-22 13:35 | PN ---
PROGRESS NOTE 79-year-old lady who is status post CABG, doing fairly well, extubated. Heart rate is 80 beats per minute. Blood pressure is 130/40, respiratory is 18. Chest exam reveals diminished air entry at the bases. Heart exam reveals first and second heart sounds. Systolic murmur at the apex. Abdomen is soft. Exam of extremities reveals mild edema. Peripheral pulses are felt. Patient is currently on aspirin, Lipitor, Plavix, Lasix, Lopressor. ASSESSMENT: Coronary artery disease status post coronary artery bypass grafting. The patient is making slow but steady recovery. MMODL / IJN: [id number] /
[2020-02-22] MEDS: FERROUS SULFATE 325 MG TAB PO SCH ×2 (15:59→16:02)
[2020-02-22] MEDS: ASCORBIC ACID 500 MG TAB PO SCH ×2 (16:00→16:02)
[2020-02-22] MEDS: FOLIC ACID 1 MG TAB PO SCH (16:02)
[2020-02-22] MEDS: THIAMINE 100 MG TAB PO SCH (16:03)
[2020-02-22 17:07] LABS: Glucose,Whole Blood 124 mg/dL (75-99)
[2020-02-22 17:18] LABS: Anisocytosis Marked; MCH 34.7 pg (25.0-35.0); MCV 105.3 fL (80.0-100.0); Macrocytosis Marked; Mean Platelet Volume 9.6; Platelet Count 295 k/uL (150-450); RBC 2.38 m/uL (3.80-5.40); RDW 24.1 % (11.5-15.5); WBC 5.1 k/uL (3.8-10.6)
[2020-02-22 17:21] LABS: HGB 8.2 gm/dL (11.4-16.0)
[2020-02-22 17:40] LABS: African American GFR (CKD) >90 (>60 ml/min/1.73 sqM); Anion Gap 7 mmol/L; Blood Urea Nitrogen 18 mg/dL (7-17); Calcium 7.5 mg/dL (8.4-10.2); Carbon Dioxide 23 mmol/L (22-30); Chloride 93 mmol/L (98-107); Glucose 115 mg/dL (74-99); Non-African American GFR(CKD) 87 (>60 ml/min/1.73 sqM); Potassium 3.8 mmol/L (3.5-5.1); Sodium 123 mmol/L (137-145)
[2020-02-22] MEDS: SODIUM CHLORIDE 0.9% 1,000 ML IV SCH (18:09)
[2020-02-22 20:23] LABS: Glucose,Whole Blood 113 mg/dL (75-99)
[2020-02-22] MEDS: MONTELUKAST 10 MG TAB PO SCH (20:46)
[2020-02-22] MEDS: SENNOSIDES-DOCUSATE SODIUM 1 EACH TAB PO SCH (20:51)
--- NOTE | 2020-02-22 20:54 | P.PN ---
Progress Note - Text Progress Note Date: 02/21/20 Chief Complaint: Chest pain History of presenting complaint: This is a very pleasant 79-year-old patient of Dr. Jacqueline Lorenzo. Patient is presented 4 days ago to [facility]. In the doctor's office she was found to have hemoglobin of 6.5 and sent to the hospital. Initial hemoglobin was 6.5 given 2 units of blood. Hemoglobin did come up to 9.2. Patient also was having chest pain at home. Ruled in for acute non-Q-wave [place]. Yesterday morning patient underwent a cardiac catheterization found to have left main and triple-vessel disease. Patient was transferred here for coronary bypass. Patient also was found to have bicytopenia and being worked up by hematology. Which is B12 folate was normal. Patient may need a bone marrow biopsy done the road. She is little bit tired. Currently no cardiac symptoms. 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 Underwent three-vessel bypass on February 19. Today-up in a chair today. Did tolerate liquids. Did woke up to the desk out of the room.. Tired. System visiting. Review of systems: Was done for constitutional, cardiovascular, GI, pulmonary. relevant finding as above Active Medications Acetaminophen (Tylenol Tab) 1,000 mg PO Q6HR PRN PRN Reason: Fever and/ or Pain Hydrocodone Bitart/Acetaminophen (Knifley 5-325) 2 each PO Q4HR PRN PRN Reason: Severe Pain Hydrocodone Bitart/Acetaminophen (Knifley 5-325) 1 each PO Q4HR PRN PRN Reason: Moderate Pain Last Admin: 02/21/20 20:37 Dose: 1 each Documented by: Albuterol/Ipratropium (Duoneb 0.5 Mg-3 Mg/3 Ml Soln) 3 ml INHALATION RT-Q2H PRN PRN Reason: Shortness Of Breath Or Wheezing Albuterol/Ipratropium (Duoneb 0.5 Mg-3 Mg/3 Ml Soln) 3 ml INHALATION RT-QID [facility] Last Admin: 02/21/20 19:44 Dose: 3 ml Documented by: Aspirin (Aspirin) 325 mg PO DAILY [facility] Last Admin: 02/21/20 09:25 Dose: 325 mg Documented by: Atorvastatin Calcium (Lipitor) 40 mg PO DAILY [facility] Last Admin: 02/21/20 09:25 Dose: 40 mg Documented by: Benzocaine/Menthol (Cepacol Lozenge) 1 each MUCOUS MEM Q2H PRN PRN Reason: Sore Throat Bisacodyl (Dulcolax) 10 mg RECTAL DAILY PRN PRN Reason: Constipation Clopidogrel Bisulfate (Plavix) 75 mg PO DAILY [facility] Last Admin: 02/21/20 09:25 Dose: 75 mg Documented by: Fluticasone Propionate (Flovent 110 Mcg Inhaler) 2 puff INHALATION RT-BID [facility] Last Admin: 02/21/20 19:44 Dose: 2 puff Documented by: Folic Acid (Folic Acid) 1 mg PO DAILY@1200 [facility] Last Admin: 02/21/20 12:28 Dose: 1 mg Documented by: Heparin Sodium (Porcine) (Heparin) 5,000 unit SQ Q8HR [facility] Last Admin: 02/21/20 15:19 Dose: 5,000 unit Documented by: Amiodarone HCl 150 mg/ (Dextrose/Water) 103 mls @ 618 mls/hr IV .Q10M PRN; Protocol PRN Reason: A.FIB/FLUTTER Amiodarone HCl 360 mg/ (Dextrose/Water) 200 mls @ 33.333 mls/hr IV .Q6H PRN; Protocol PRN Reason: A.FIB/FLUTTER Amiodarone HCl 300 mg/ (Dextrose/Water) 250 mls @ 25 mls/hr IV .Q10H PRN; Protocol PRN Reason: A.FIB/FLUTTER Albumin Human 250 ml/ IV (Solution) 250 mls @ 250 mls/hr IVPB Q1HR PRN PRN Reason: For Volume Stop: 02/22/20 12:15 Last Admin: 02/21/20 09:14 Dose: 250 mls/hr Documented by: Clevidipine 25 mg/ IV Solution 50 mls @ 2 mls/hr IV .Q24H [facility]; Protocol Last Admin: 02/21/20 14:26 Dose: Not Given Documented by: Lactated Ringer's (Lactated Ringers) 1,000 mls @ 50 mls/hr IV .Q20H [facility] Last Admin: 02/21/20 09:30 Dose: 50 mls/hr Documented by: Insulin Human Regular 100 unit (/ Sodium Chloride) 101 mls @ 0 mls/hr IV .Q0M [facility]; Protocol Last Titration: 02/21/20 20:44 Dose: 0 units/hr, 0 mls/hr Documented by: Ketorolac Tromethamine (Toradol) 15 mg IVP Q8HR [facility] Stop: 02/26/20 08:31 Last Admin: 02/21/20 15:19 Dose: 15 mg Documented by: Magnesium Hydroxide (Milk Of Magnesia) 2,400 mg PO BID PRN PRN Reason: Constipation Metoclopramide HCl (Reglan) 10 mg IVP Q4H PRN PRN Reason: Nausea And Vomiting Metoprolol Tartrate (Lopressor) 12.5 mg PO BID [facility] Last Admin: 02/21/20 09:26 Dose: 12.5 mg Documented by: Miscellaneous Information (Potassium Per Protocol) 1 each MISCELLANE DAILY PRN; Protocol PRN Reason: Per Protocol Miscellaneous Information (Magnesium Per Protocol) 1 each MISCELLANE DAILY PRN; Protocol PRN Reason: Per Protocol Miscellaneous Information (Phosphorus Per Protocol) 1 each MISCELLANE DAILY PRN; Protocol PRN Reason: Per Protocol Montelukast Sodium (Singulair) 10 mg PO [facility] Last Admin: 02/20/20 22:35 Dose: Not Given Documented by: Ondansetron HCl (Zofran) 4 mg IVP Q6HR PRN PRN Reason: Nausea And Vomiting Last Admin: 02/21/20 21:26 Dose: 4 mg Documented by: Pantoprazole Sodium (Protonix) 40 mg PO AC-BRKFST [facility] Phenobarbital (Luminal) 32.4 mg PO BID [facility] Last Admin: 02/21/20 09:32 Dose: 32.4 mg Documented by: Phenytoin Sodium (Dilantin) 100 mg PO TID [facility] Last Admin: 02/21/20 15:20 Dose: 100 mg Documented by: Senna/Docusate Sodium (Senokot-S) 2 each PO [facility] Sodium Chloride (Saline Flush) 10 ml IV BID [facility] Last Admin: 02/21/20 09:30 Dose: 10 ml Documented by: Thiamine HCl (Vitamin B-1) 100 mg PO DAILY@1200 [facility] Last Admin: 02/21/20 12:28 Dose: 100 mg Documented by: Physical examination: VITAL SIGNS: 100.6, 86, 20, 95/60, 99% on GENERAL: Sitting on a chair, awake EYES: Pupils equal. Conjunctiva normal. HEENT: External appearance of nose and ears normal, oral cavity grossly normal. NECK: JVD not raised; masses not palpable. HEART: First and second heart sounds are normal; no edema. LUNGS: Respiratory rate increased; decreased breath sounds, patient is 3 chest tubes ABDOMEN: Soft, nontender, liver spleen not palpable, no masses palpable. PSYCH: Tired but able to answer questions INVESTIGATIONS, reviewed in the clinical context: White count 4 hemoglobin 7.1 impression 4.3 creatinine 0.45 Previous testing White count 1.3 hemoglobin 8 platelets 350 potassium 4.5 bun 14 creatinine 0.51 TSH 2.2 LDL 69 2-D echocardiogram done at [facility] showed hypokinetic anterior wall and EF of 45% Cardiac catheterization done at [facility] showed left main disease and severe triple-vessel coronary artery disease Abdominal ultrasound-unremarkable Chest x-ray film personally reviewed by me-possibly some chronic scarring EKG tracing personally noted by me. Assessment: -Triple-vessel coronary bypass-February 19 -Acute non-Q-wave myocardial infarction POA -Severe left main and triple-vessel coronary artery disease per cardiac catheterization awaiting coronary bypass -Bicytopenia with a recent hemoglobin of 6.5 after 2 units of blood hemoglobin today is 8. As patient is going for coronary bypass tomorrow was given another unit of blood. -Chronic epilepsy -Polio causing some weakness on the left of the body -Primary osteoarthritis affecting the hands and knees Plan: -Continue current medication treatment plan. Care discussed with the patient.
--- NOTE | 2020-02-22 20:58 | P.PN ---
Progress Note - Text Progress Note Date: 02/22/20 Chief Complaint: Chest pain History of presenting complaint: This is a very pleasant 79-year-old patient of Dr. Jacqueline Lorenzo. Patient is presented 4 days ago to [facility]. In the doctor's office she was found to have hemoglobin of 6.5 and sent to the hospital. Initial hemoglobin was 6.5 given 2 units of blood. Hemoglobin did come up to 9.2. Patient also was having chest pain at home. Ruled in for acute non-Q-wave CO. Yesterday morning patient underwent a cardiac catheterization found to have left main and triple-vessel disease. Patient was transferred here for coronary bypass. Patient also was found to have bicytopenia and being worked up by hematology. Which is B12 folate was normal. Patient may need a bone marrow biopsy done the road. She is little bit tired. Currently no cardiac symptoms. 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 Underwent three-vessel bypass on February 19. Today-up in a chair . Decreased appetite. Breathing is okay. Has been out of bed. Review of systems: Was done for constitutional, cardiovascular, GI, pulmonary. relevant finding as above Active Medications Acetaminophen (Tylenol Tab) 1,000 mg PO Q6HR PRN PRN Reason: Fever and/ or Pain Albuterol/Ipratropium (Duoneb 0.5 Mg-3 Mg/3 Ml Soln) 3 ml INHALATION RT-Q2H PRN PRN Reason: Shortness Of Breath Or Wheezing Albuterol/Ipratropium (Duoneb 0.5 Mg-3 Mg/3 Ml Soln) 3 ml INHALATION RT-QID [facility] Last Admin: 02/22/20 20:13 Dose: 3 ml Documented by: Ascorbic Acid (Vitamin C) 500 mg PO BID-W/MEALS [facility] Last Admin: 02/22/20 16:02 Dose: 500 mg Documented by: Aspirin (Aspirin) 81 mg PO DAILY [facility] Atorvastatin Calcium (Lipitor) 40 mg PO DAILY [facility] Last Admin: 02/22/20 09:01 Dose: 40 mg Documented by: Benzocaine/Menthol (Cepacol Lozenge) 1 each MUCOUS MEM Q2H PRN PRN Reason: Sore Throat Bisacodyl (Dulcolax) 10 mg RECTAL DAILY PRN PRN Reason: Constipation Clopidogrel Bisulfate (Plavix) 75 mg PO DAILY [facility] Last Admin: 02/22/20 09:02 Dose: 75 mg Documented by: Ferrous Sulfate (Feosol) 325 mg PO BID-W/MEALS [facility] Last Admin: 02/22/20 16:02 Dose: 325 mg Documented by: Fluticasone Propionate (Flovent 110 Mcg Inhaler) 2 puff INHALATION RT-BID [facility] Last Admin: 02/22/20 20:13 Dose: 2 puff Documented by: Folic Acid (Folic Acid) 1 mg PO DAILY@1200 [facility] Last Admin: 02/22/20 16:02 Dose: 1 mg Documented by: Heparin Sodium (Porcine) (Heparin) 5,000 unit SQ Q8HR [facility] Last Admin: 02/22/20 16:02 Dose: 5,000 unit Documented by: Amiodarone HCl 150 mg/ (Dextrose/Water) 103 mls @ 618 mls/hr IV .Q10M PRN; Protocol PRN Reason: A.FIB/FLUTTER Amiodarone HCl 360 mg/ (Dextrose/Water) 200 mls @ 33.333 mls/hr IV .Q6H PRN; Protocol PRN Reason: A.FIB/FLUTTER Amiodarone HCl 300 mg/ (Dextrose/Water) 250 mls @ 25 mls/hr IV .Q10H PRN; Protocol PRN Reason: A.FIB/FLUTTER Sodium Chloride (Saline 0.9%) 1,000 mls @ 75 mls/hr IV .[id number] [facility] Last Admin: 02/22/20 18:09 Dose: 75 mls/hr Documented by: Insulin Aspart (Novolog) 0 unit SQ ACHS [facility]; Protocol Last Admin: 02/22/20 20:50 Dose: Not Given Documented by: Magnesium Hydroxide (Milk Of Magnesia) 2,400 mg PO BID PRN PRN Reason: Constipation Melatonin (Melatonin) 3 mg PO HS [facility] Metoclopramide HCl (Reglan) 10 mg IVP Q4H PRN PRN Reason: Nausea And Vomiting Metoprolol Tartrate (Lopressor) 25 mg PO BID [facility] Last Admin: 02/22/20 20:46 Dose: 25 mg Documented by: Miscellaneous Information (Potassium Per Protocol) 1 each MISCELLANE DAILY PRN; Protocol PRN Reason: Per Protocol Miscellaneous Information (Magnesium Per Protocol) 1 each MISCELLANE DAILY PRN; Protocol PRN Reason: Per Protocol Miscellaneous Information (Phosphorus Per Protocol) 1 each MISCELLANE DAILY PRN; Protocol PRN Reason: Per Protocol Montelukast Sodium (Singulair) 10 mg PO [facility] Last Admin: 02/22/20 20:46 Dose: 10 mg Documented by: Ondansetron HCl (Zofran) 4 mg IVP Q6HR PRN PRN Reason: Nausea And Vomiting Last Admin: 02/22/20 11:51 Dose: 4 mg Documented by: Pantoprazole Sodium (Protonix) 40 mg PO AC-BRKFST [facility] Last Admin: 02/22/20 09:02 Dose: 40 mg Documented by: Phenobarbital (Luminal) 32.4 mg PO BID [facility] Last Admin: 02/22/20 20:46 Dose: 32.4 mg Documented by: Phenytoin Sodium (Dilantin) 100 mg PO TID [facility] Last Admin: 02/22/20 20:50 Dose: Not Given Documented by: Senna/Docusate Sodium (Senokot-S) 2 each PO [facility] Last Admin: 02/22/20 20:51 Dose: 2 each Documented by: Sodium Chloride (Saline Flush) 10 ml IV BID [facility] Last Admin: 02/22/20 09:03 Dose: 10 ml Documented by: Thiamine HCl (Vitamin B-1) 100 mg PO DAILY@1200 [facility] Last Admin: 02/22/20 16:03 Dose: 100 mg Documented by: Physical examination: VITAL SIGNS: 98.9, 79, 21, 89/46, 95% room air GENERAL: Sitting on a chair, awake EYES: Pupils equal. Conjunctiva normal. HEENT: External appearance of nose and ears normal, oral cavity grossly normal. NECK: JVD not raised; masses not palpable. HEART: First and second heart sounds are normal; no edema. LUNGS: Respiratory rate increased; decreased breath sounds, ABDOMEN: Soft, nontender, liver spleen not palpable, no masses palpable. PSYCH: AAO 3 INVESTIGATIONS, reviewed in the clinical context: White count 5.1 hemoglobin 8.2 potassium 3.8 creatinine 0.63 sodium 123 osmolality 260 Previous testing White count 1.3 hemoglobin 8 platelets 350 potassium 4.5 bun 14 creatinine 0.51 TSH 2.2 LDL 69 2-D echocardiogram done at [facility] showed hypokinetic anterior wall and EF of 45% Cardiac catheterization done at [facility] showed left main disease and severe triple-vessel coronary artery disease Abdominal ultrasound-unremarkable Chest x-ray film personally reviewed by me-possibly some chronic scarring EKG tracing personally noted by me. Assessment: -Triple-vessel coronary bypass-February 19 -Acute non-Q-wave myocardial infarction POA -Severe left main and triple-vessel coronary artery disease per cardiac catheterization awaiting coronary bypass -Bicytopenia with a recent hemoglobin of 6.5 after 2 units of blood hemoglobin today is 8. As patient is going for coronary bypass tomorrow was given another unit of blood. -Chronic epilepsy -Polio causing some weakness on the left of the body -Primary osteoarthritis affecting the hands and knees -Hypoosmolar hyponatremia from excessive fluid intake and decrease salt intake- new diagnosis. Plan: -We'll put the patient on a fluid restriction of 1500 mL a day. Avoid free water i.e. Tea coffee etc. Insulin drip discontinued. Repeat labs.
[2020-02-22] MEDS: ACETAMINOPHEN TAB 500 MG TAB PO PRN (23:49)
[2020-02-23 05:03] LABS: ALT 18 U/L (4-34); AST 46 U/L (14-36); African American GFR (CKD) >90 (>60 ml/min/1.73 sqM); Albumin 2.7 g/dL (3.5-5.0); Alkaline Phosphatase 39 U/L (38-126); Anion Gap 6 mmol/L; Blood Urea Nitrogen 19 mg/dL (7-17); Calcium 7.2 mg/dL (8.4-10.2); Carbon Dioxide 22 mmol/L (22-30); Chloride 96 mmol/L (98-107); Glucose 104 mg/dL (74-99); Magnesium 2.2 mg/dL (1.6-2.3); Non-African American GFR(CKD) >90 (>60 ml/min/1.73 sqM); Potassium 4.2 mmol/L (3.5-5.1); Sodium 124 mmol/L (137-145); Total Bilirubin 0.6 mg/dL (0.2-1.3); Total Protein 4.5 g/dL (6.3-8.2)
[2020-02-23 05:33] LABS: Anisocytosis Marked; HCT 20.6 % (34.0-46.0); MCH 35.7 pg (25.0-35.0); Macrocytosis Marked; Mean Platelet Volume 8.6; Platelet Count 233 k/uL (150-450); RBC 1.97 m/uL (3.80-5.40); RDW 24.3 % (11.5-15.5); WBC 3.2 k/uL (3.8-10.6)
[2020-02-23] MEDS: PANTOPRAZOLE 40 MG TABLET PO SCH (06:51)
[2020-02-23] MEDS: MELATONIN 3 MG TABLET PO SCH ×2 (06:51→20:09)
[2020-02-23] MEDS: FERROUS SULFATE 325 MG TAB PO SCH ×2 (06:51→16:42)
[2020-02-23] MEDS: ASCORBIC ACID 500 MG TAB PO SCH ×2 (06:51→16:42)
[2020-02-23] MEDS: SODIUM CHLORIDE 0.9% 1,000 ML IV SCH (06:52)
[2020-02-23 06:57] LABS: Band Neutrophils % 7 %; Eosinophils # (M) 0.06 k/uL (0-0.7); Lymphocytes # (M) 0.61 k/uL (1.0-4.8); Monocytes # (M) 0.03 k/uL (0-1.0); Neutrophils % (M) 71 %; Nucleated Red Blood Cells 0 /100 WBC (0-0); Total Cells Counted 100
[2020-02-23 06:58] LABS: Glucose,Whole Blood 113 mg/dL (75-99)
[2020-02-23 06:59] LABS: Large Platelets Present
[2020-02-23 07:01] LABS: Polychromasia Present
--- NOTE | 2020-02-23 07:20 | XR ---
EXAMINATION TYPE: XR chest 1V portable DATE OF EXAM: 02/23/2020 COMPARISON: Prior chest x-ray 02/22/2020 HISTORY: Status post cardiac surgery, chest tube removal TECHNIQUE: Single frontal view of the chest is obtained. FINDINGS: Bilateral chest tubes have been removed. Heart remains enlarged. Bibasilar increased atten uation persists, the left hemidiaphragm is secured. Subcutaneous emphysema, overlying cardiac leads a nd artifacts are again noted. Atrial appendage clipping is noted. Minimal apical pneumothoraces are s table. Aorta is dense. IMPRESSION: Interval chest tubes removal.
[2020-02-23] MEDS: INSULIN ASPART (NovoLOG) 100 UNIT/ML VIAL SQ SCH ×4 (07:36→20:09)
[2020-02-23] MEDS ORDERED: guaiFENesin 600 MG TABLET.ER PO PRN (07:50)
[2020-02-23] MEDS: IPRATROPIUM-ALBUTEROL 3 ML NEB INHALATION SCH ×4 (07:50→20:16)
--- NOTE | 2020-02-23 08:10 | P.PN ---
Subjective Progress Note Date: 02/23/20 Principal diagnosis: Severe calcific coronary artery disease with left main disease, non-STEMI this admission. Previous medical history of macrocytic anemia, polio, seizures, pneu monia, and family history of premature coronary artery disease. POD #3 off-pump coronary artery bypass graft 3 with left internal mammary artery to the left anterior descending artery, reverse saphenous vein graft to the second obtuse marginal artery and posterior descending coronary artery with endovascular vein harvest of the left greater saphenous vein from mid calf to the groin, left atrial appendage exclusion with 35 mm AtriCure clip and aspirate and biopsy of the sternal bone marrow. Postoperative acute blood loss anemia, expected given patient's preoperative history of macrocytic anemia Postoperative hyponatremia, unexpected The patient is currently sitting up in the recliner in the intensive care unit in no acute distress. She denies pain, denies shortness of breath. Complains of being unable to bring anything up with coughing, blames milk base from Ensure. Currently in normal sinus rhythm and hemodynamically stable on no inotropes or pressors. Hemoglobin 6.6 yesterday, received 1 unit PRBCs, redraw last night 8.2, 7.0 this AM. Sodium 125 yesterday, nephro consulted, patient was given lasix yesterday, fluid restrictions of 1500 mL/24 hours initiated, sodium decreased to 123, started on 0.9 per nephrology, 124 this AM. Serum osmo 260, urine osmo 299, urine Na 85. All tubes and wires discontinued yesterday. Patient has ambulated in the hallway. Objective - Vital Signs Vital signs: Vital Signs Temp 98.1 F 02/23/20 04:00 Pulse 82 02/23/20 07:00 Resp 23 02/23/20 07:00 BP 96/51 02/23/20 07:00 Pulse Ox 98 02/23/20 07:00 Intake & Output 02/22/20 02/23/20 02/23/20 18:59 06:59 18:59 Intake Total 1116 1050 75 Output Total 1380 650 200 Balance -264 400 -125 Weight 65.6 kg Intake: IV 306 825 75 Lactated Ringers 1,000 ml 150 @ 50 mls/hr IV .Q20H [facility] Rx#:[id number] NS PRESSURE BAG 6 Sodium Chloride 0.9% 1, 150 825 75 000 ml @ 75 mls/hr IV . [id number] [facility] Rx#:[id number] Oral 500 225 Blood Product 310 Rc As-3 Unit 310 [id number] Output: Chest Tube Drainage 100 Left Pleural Chest Tube 80 Right Pleural Chest Tube 20 Urine 1280 650 200 Other: Voiding Method Indwelling Catheter Bedside Commode # Voids 1 ABP, PAP, CO, CI - Last Documented Arterial Blood Pressure 131/47 Pulmonary Artery Pressure 29/13 Cardiac Output 5.2 Cardiac Index 3.1 - Constitutional General appearance: Present: cooperative, no acute distress, thin - Respiratory Details: Lungs sounds diminished bilaterally. Respirations even, nonlabored. Currently on room air with oxygen saturation 96%. Only able to achieve 500 mL on her incentive spirometry. Strong cough. - Cardiovascular Details: S1, S2 present. Regular rate and rhythm, sinus rhythm on telemetry with heart rate in the 70-80s. Sternum stable. Palpable peripheral pulses bilaterally. No edema present. No calf pain or tenderness noted. Heart hugger in place with patient demonstrating appropriate use. Antiembolism stockings, SCDs present. - Gastrointestinal Gastrointestinal Comment(s): Abdomen soft, nontender, nondistended. Active bowel sounds present 4 quadrants. Tolerating diet. Positive flatus. - Genitourinary Genitourinary Comment(s): Velazquez discontinued yesterday, pt voiding clear yellow urine - Integumentary Integumentary Comment(s): Skin is warm and dry with evidence of good perfusion. Anterior chest incision well approximated and covered with dry intact dressing. Left lower extremities EVH site well approximated. - Neurologic Neurologic: Present: CNII-XII intact - Musculoskeletal Musculoskeletal: Present: gait normal, strength equal bilaterally - Psychiatric Psychiatric: Present: A&O x's 3, appropriate affect, intact judgment & insight - Allied health notes Allied health notes reviewed: nursing - Labs CBC & Chem 7: 02/23/20 04:28 02/23/20 04:28 Labs: Abnormal Lab Results - Last 24 Hours (Table) 02/19/20 02/19/20 02/22/20 Range/Units 07:18 13:03 08:54 WBC (3.8-10.6) k/uL RBC (3.80-5.40) m/uL Hgb (11.4-16.0) gm/dL Hct (34.0-46.0) % MCV (80.0-100.0) fL MCH (25.0-35.0) pg RDW (11.5-15.5) % Lymphocytes # (Manual) (1.0-4.8) k/uL Macrocytosis Sodium (137-145) mmol/L Chloride (98-107) mmol/L BUN (7-17) mg/dL Creatinine (0.52-1.04) mg/dL Glucose (74-99) mg/dL POC Glucose (mg/dL) 133 H (75-99) mg/dL Osmolality (280-301) mosm/kg Calcium (8.4-10.2) mg/dL AST (14-36) U/L Total Protein (6.3-8.2) g/dL Albumin (3.5-5.0) g/dL Methylmalonic Acid 0.55 H (<0.40) umol/L Crossmatch See Detail 02/22/20 02/22/20 02/22/20 Range/Units 12:01 17:06 17:10 WBC (3.8-10.6) k/uL RBC 2.38 L (3.80-5.40) m/uL Hgb 8.2 L D (11.4-16.0) gm/dL Hct 25.0 L (34.0-46.0) % MCV 105.3 H (80.0-100.0) fL MCH (25.0-35.0) pg RDW 24.1 H (11.5-15.5) % Lymphocytes # (Manual) (1.0-4.8) k/uL Macrocytosis Marked A Sodium (137-145) mmol/L Chloride (98-107) mmol/L BUN (7-17) mg/dL Creatinine (0.52-1.04) mg/dL Glucose (74-99) mg/dL POC Glucose (mg/dL) 137 H 124 H (75-99) mg/dL Osmolality (280-301) mosm/kg Calcium (8.4-10.2) mg/dL AST (14-36) U/L Total Protein (6.3-8.2) g/dL Albumin (3.5-5.0) g/dL Methylmalonic Acid (<0.40) umol/L Crossmatch 02/22/20 02/22/20 02/22/20 Range/Units 17:10 17:10 20:22 WBC (3.8-10.6) k/uL RBC (3.80-5.40) m/uL Hgb (11.4-16.0) gm/dL Hct (34.0-46.0) % MCV (80.0-100.0) fL MCH (25.0-35.0) pg RDW (11.5-15.5) % Lymphocytes # (Manual) (1.0-4.8) k/uL Macrocytosis Sodium 123 L (137-145) mmol/L Chloride 93 L (98-107) mmol/L BUN 18 H (7-17) mg/dL Creatinine (0.52-1.04) mg/dL Glucose 115 H (74-99) mg/dL POC Glucose (mg/dL) 113 H (75-99) mg/dL Osmolality 260 L (280-301) mosm/kg Calcium 7.5 L (8.4-10.2) mg/dL AST (14-36) U/L Total Protein (6.3-8.2) g/dL Albumin (3.5-5.0) g/dL Methylmalonic Acid (<0.40) umol/L Crossmatch 02/23/20 02/23/20 02/23/20 Range/Units 00:25 04:28 04:28 WBC 3.2 L (3.8-10.6) k/uL RBC 1.97 L (3.80-5.40) m/uL Hgb 7.0 L (11.4-16.0) gm/dL Hct 20.6 L (34.0-46.0) % MCV 105.0 H (80.0-100.0) fL MCH 35.7 H (25.0-35.0) pg RDW 24.3 H (11.5-15.5) % Lymphocytes # (Manual) 0.61 L (1.0-4.8) k/uL Macrocytosis Marked A Sodium 123 L 124 L (137-145) mmol/L Chloride 96 L (98-107) mmol/L BUN 19 H (7-17) mg/dL Creatinine 0.50 L (0.52-1.04) mg/dL Glucose 104 H (74-99) mg/dL POC Glucose (mg/dL) (75-99) mg/dL Osmolality (280-301) mosm/kg Calcium 7.2 L (8.4-10.2) mg/dL AST 46 H (14-36) U/L Total Protein 4.5 L (6.3-8.2) g/dL Albumin 2.7 L (3.5-5.0) g/dL Methylmalonic Acid (<0.40) umol/L Crossmatch 02/23/20 Range/Units 06:57 WBC (3.8-10.6) k/uL RBC (3.80-5.40) m/uL Hgb (11.4-16.0) gm/dL Hct (34.0-46.0) % MCV (80.0-100.0) fL MCH (25.0-35.0) pg RDW (11.5-15.5) % Lymphocytes # (Manual) (1.0-4.8) k/uL Macrocytosis Sodium (137-145) mmol/L Chloride (98-107) mmol/L BUN (7-17) mg/dL Creatinine (0.52-1.04) mg/dL Glucose (74-99) mg/dL POC Glucose (mg/dL) 113 H (75-99) mg/dL Osmolality (280-301) mosm/kg Calcium (8.4-10.2) mg/dL AST (14-36) U/L Total Protein (6.3-8.2) g/dL Albumin (3.5-5.0) g/dL Methylmalonic Acid (<0.40) umol/L Crossmatch - Imaging and Cardiology Chest x-ray: image reviewed Assessment and Plan Assessment: 1. Severe calcific triple-vessel coronary artery disease with left main disease, status post three-vessel CABG 2. Macrocytic anemia unknown origin, status post bone marrow biopsy of the sternum 3. Seizure disorder, currently treated with Dilantin and phenobarb 4. History of polio 5. History of pneumonia, last episode greater than 6 months ago 6. Family history of premature coronary artery disease 7. Lifelong nonsmoker 8. Postoperative acute blood loss anemia, expected 9. Postoperative hyponatremia, unexpected Plan: 1. Continue aspirin, statin, beta manuel therapy. Will increase beta manuel therapy as tolerated. 2. Encourage incentive spirometry use 10 times every hour while awake 3. Increase activity, ambulate as tolerated. PT/OT/cardiac rehab following 4. Will monitor daily labs and x-rays. Electrolyte replacement per protocol. 5. GI/DVT prophylaxis 6. Pain controlled current medication regimen. 7. Insulin management per primary care service. 8. Continue phenobarbital and Dilantin for seizure control 9. Bone marrow biopsy results pending. Hematology following. 10. Nephrology consulted for hyponatremia. 11. Patient may need rehab at discharge due to lack of any family at home, need for frequent lab monitoring due to hyponatremia and anemia, frequent physician monitoring. Dr. Hooks consulted for IPR 12. More recommendations to follow Time with Patient: Greater than 30
[2020-02-23] MEDS: HEPARIN SODIUM,PORCINE 5,000 UNIT/ML 1 ML VIAL SQ SCH ×3 (08:39→23:20)
[2020-02-23] MEDS: ASPIRIN 81 MG PO SCH (08:40)
[2020-02-23] MEDS: METOPROLOL TARTRATE 25 MG TAB PO SCH ×2 (08:40→20:09)
[2020-02-23] MEDS: PHENYTOIN SODIUM EXTENDED 100 MG CAP PO SCH ×3 (08:40→21:03)
[2020-02-23] MEDS: ATORVASTATIN 40 MG TAB PO SCH (08:40)
[2020-02-23] MEDS: CLOPIDOGREL 75 MG TAB PO SCH (08:40)
[2020-02-23] MEDS: PHENobarbital 32.4 MG TAB PO SCH ×2 (08:40→20:09)
--- NOTE | 2020-02-23 10:20 | PN ---
PROGRESS NOTE Agustina is a 79-year-old lady with coronary artery disease status post coronary artery bypass grafting. She is doing better today. She has some cough and productive sputum, but is able to get up and walk around better. PHYSICAL EXAM: Afebrile. Heart rate is 84 beats per minute. Blood pressure is 114/77, respiratory rate is 18. Chest exam reveals diminished air entry at the bases. Heart exam reveals first and second heart sounds. No gallop. Exam of extremities reveals mild edema. Peripheral pulses are felt. LABORATORY DATA: Labs show that the sodium is low at 124, creatinine is 0.5. MEDICATIONS: Patient is currently on aspirin, Lipitor, Plavix, Lopressor. ASSESSMENT: Coronary artery disease, status post coronary artery bypass graft. PLAN: Patient will continue current medications. Hyponatremia is being addressed by the manager of disaster recovery. RICK / MARK: [phone] /
--- NOTE | 2020-02-23 10:56 | P.PN ---
Subjective Patient is seen in follow-up for hyponatremia. Sodium level 124 this morning. Sodium had dropped with IV Lasix yesterday and she was started on normal saline. Oral intake is fair. No vomiting or diarrhea. No chest pain or shortness of breath. Vital signs are stable. General: The patient appeared well nourished and normally developed. HEENT: Head exam is unremarkable. Neck is without jugular venous distension. LUNGS: Lungs are clear to auscultation and percussion. Breath sounds decreased. HEART: Rate and Rhythm are regular. ABDOMEN: Soft, nontender. EXTREMITITES: No clubbing, cyanosis, or edema. Objective - Vital Signs Vital signs: Vital Signs Temp 98.6 F 02/23/20 08:00 Pulse 73 02/23/20 10:00 Resp 19 02/23/20 10:00 BP 107/57 02/23/20 10:00 Pulse Ox 96 02/23/20 10:00 Intake & Output 02/22/20 02/23/20 02/23/20 18:59 06:59 18:59 Intake Total 1116 1050 300 Output Total 1380 650 200 Balance -264 400 100 Weight 65.6 kg Intake: IV 306 825 300 Lactated Ringers 1,000 ml 150 @ 50 mls/hr IV .Q20H [facility] Rx#:[id number] NS PRESSURE BAG 6 Sodium Chloride 0.9% 1, 150 825 300 000 ml @ 75 mls/hr IV . [id number] [facility] Rx#:[id number] Oral 500 225 Blood Product 310 Rc As-3 Unit 310 [id number] Output: Chest Tube Drainage 100 Left Pleural Chest Tube 80 Right Pleural Chest Tube 20 Urine 1280 650 200 Other: Voiding Method Indwelling Catheter Bedside Commode Bedside Commode # Voids 1 ABP, PAP, CO, CI - Last Documented Arterial Blood Pressure 131/47 Pulmonary Artery Pressure 29/13 Cardiac Output 5.2 Cardiac Index 3.1 - Labs CBC & Chem 7: 02/23/20 04:28 02/23/20 04:28 Labs: Abnormal Lab Results - Last 24 Hours (Table) 02/19/20 02/22/20 02/22/20 Range/Units 13:03 12:01 17:06 WBC (3.8-10.6) k/uL RBC (3.80-5.40) m/uL Hgb (11.4-16.0) gm/dL Hct (34.0-46.0) % MCV (80.0-100.0) fL MCH (25.0-35.0) pg RDW (11.5-15.5) % Lymphocytes # (Manual) (1.0-4.8) k/uL Macrocytosis Sodium (137-145) mmol/L Chloride (98-107) mmol/L BUN (7-17) mg/dL Creatinine (0.52-1.04) mg/dL Glucose (74-99) mg/dL POC Glucose (mg/dL) 137 H 124 H (75-99) mg/dL Osmolality (280-301) mosm/kg Calcium (8.4-10.2) mg/dL AST (14-36) U/L Total Protein (6.3-8.2) g/dL Albumin (3.5-5.0) g/dL Crossmatch See Detail 02/22/20 02/22/20 02/22/20 Range/Units 17:10 17:10 17:10 WBC (3.8-10.6) k/uL RBC 2.38 L (3.80-5.40) m/uL Hgb 8.2 L D (11.4-16.0) gm/dL Hct 25.0 L (34.0-46.0) % MCV 105.3 H (80.0-100.0) fL MCH (25.0-35.0) pg RDW 24.1 H (11.5-15.5) % Lymphocytes # (Manual) (1.0-4.8) k/uL Macrocytosis Marked A Sodium 123 L (137-145) mmol/L Chloride 93 L (98-107) mmol/L BUN 18 H (7-17) mg/dL Creatinine (0.52-1.04) mg/dL Glucose 115 H (74-99) mg/dL POC Glucose (mg/dL) (75-99) mg/dL Osmolality 260 L (280-301) mosm/kg Calcium 7.5 L (8.4-10.2) mg/dL AST (14-36) U/L Total Protein (6.3-8.2) g/dL Albumin (3.5-5.0) g/dL Crossmatch 02/22/20 02/23/20 02/23/20 Range/Units 20:22 00:25 04:28 WBC 3.2 L (3.8-10.6) k/uL RBC 1.97 L (3.80-5.40) m/uL Hgb 7.0 L (11.4-16.0) gm/dL Hct 20.6 L (34.0-46.0) % MCV 105.0 H (80.0-100.0) fL MCH 35.7 H (25.0-35.0) pg RDW 24.3 H (11.5-15.5) % Lymphocytes # (Manual) 0.61 L (1.0-4.8) k/uL Macrocytosis Marked A Sodium 123 L (137-145) mmol/L Chloride (98-107) mmol/L BUN (7-17) mg/dL Creatinine (0.52-1.04) mg/dL Glucose (74-99) mg/dL POC Glucose (mg/dL) 113 H (75-99) mg/dL Osmolality (280-301) mosm/kg Calcium (8.4-10.2) mg/dL AST (14-36) U/L Total Protein (6.3-8.2) g/dL Albumin (3.5-5.0) g/dL Crossmatch 02/23/20 02/23/20 Range/Units 04:28 06:57 WBC (3.8-10.6) k/uL RBC (3.80-5.40) m/uL Hgb (11.4-16.0) gm/dL Hct (34.0-46.0) % MCV (80.0-100.0) fL MCH (25.0-35.0) pg RDW (11.5-15.5) % Lymphocytes # (Manual) (1.0-4.8) k/uL Macrocytosis Sodium 124 L (137-145) mmol/L Chloride 96 L (98-107) mmol/L BUN 19 H (7-17) mg/dL Creatinine 0.50 L (0.52-1.04) mg/dL Glucose 104 H (74-99) mg/dL POC Glucose (mg/dL) 113 H (75-99) mg/dL Osmolality (280-301) mosm/kg Calcium 7.2 L (8.4-10.2) mg/dL AST 46 H (14-36) U/L Total Protein 4.5 L (6.3-8.2) g/dL Albumin 2.7 L (3.5-5.0) g/dL Crossmatch Assessment and Plan Plan: Assessment: 1. Acute hyponatremia. This is secondary to SIADH from pain and nausea as well as poor solute intake and use of nonsteroidals. Sodium level 124 today. No significant improvement with IV fluids. TSH normal. Urine sodium 85 and urine osmolality 299. 2. Non-ST with his myocardial infarction status post CABG February 19. 3. Acute blood loss anemia s/p blood transfusion. Plan: Hep-Lock IV fluids. Encourage oral intake, particularly protein. Samsca 15 mg once today. Repeat sodium level at 5 PM today.
[2020-02-23] MEDS ORDERED: TOLVAPTAN 15 MG 1/2 TABLET PO ONE (11:00)
[2020-02-23] MEDS: FOLIC ACID 1 MG TAB PO SCH (11:19)
[2020-02-23] MEDS: THIAMINE 100 MG TAB PO SCH (11:19)
[2020-02-23 11:22] LABS: Glucose,Whole Blood 112 mg/dL (75-99)
--- NOTE | 2020-02-23 11:31 | P.PN ---
Subjective Progress Note Date: 02/23/20 Principal diagnosis: CABG 3, postoperative day #2 The patient is seen today in follow-up in the intensive care unit. She is currently up in a chair at the bedside. Awake and alert in no acute distress. Maintaining O2 saturations in the 90s on room air. She is status post 2 units of packed red blood cells this admission. Her current hemoglobin is 6.6. White count 5.7. Platelets 287. Sodium 125. Potassium 4.3. Bicarb 21. Creatinine 0.52. She remains on bronchodilators. Pulling only 500 ML's on the incentive spirometer. Chest x-ray reveals small apical pneumothoraces persist. Persistent basilar atelectasis/infiltrates with pleural effusions. No worsening compared to yesterday. Subcutaneous air along the left chest wall. 20 mg of IV Lasix ordered today. Currently receiving no IV fluids. The patient is seen today 02/23/2020 in follow-up in the intensive care unit. She is currently sitting up in a chair at the bedside. Awake and alert in no acute distress. Breathing easier today compared to yesterday. Still only pulling about 500-750 MLS on her incentive spirometer. She is maintaining good O2 saturations in the 90s on room air. 0.9 normal saline at 75 mL per hour. Chest tubes have been removed. Chest x-ray reveals bibasilar effusions. Minimal apical pneumothoraces that are stable. Subcutaneous emphysema. She is status post 3 units packed red blood cells this admission. Current hemoglobin 7.0. INR 1.4. Platelet count 233. White count 3.2. Sodium 124. Potassium 4.2. Creatinine 0.50. She's been up ambulating in the hallway and doing well with assistance. Objective - Vital Signs Vital signs: Vital Signs Temp 98.6 F 02/23/20 08:00 Pulse 73 02/23/20 10:00 Resp 19 02/23/20 10:00 BP 107/57 02/23/20 10:00 Pulse Ox 96 02/23/20 10:00 Intake & Output 02/22/20 02/23/20 02/23/20 18:59 06:59 18:59 Intake Total 1116 1050 300 Output Total 1380 650 200 Balance -264 400 100 Weight 65.6 kg Intake: IV 306 825 300 Lactated Ringers 1,000 ml 150 @ 50 mls/hr IV .Q20H [facility] Rx#:[id number] NS PRESSURE BAG 6 Sodium Chloride 0.9% 1, 150 825 300 000 ml @ 75 mls/hr IV . [id number] [facility] Rx#:[id number] Oral 500 225 Blood Product 310 Rc As-3 Unit 310 [id number] Output: Chest Tube Drainage 100 Left Pleural Chest Tube 80 Right Pleural Chest Tube 20 Urine 1280 650 200 Other: Voiding Method Indwelling Catheter Bedside Commode Bedside Commode # Voids 1 ABP, PAP, CO, CI - Last Documented Arterial Blood Pressure 131/47 Pulmonary Artery Pressure 29/13 Cardiac Output 5.2 Cardiac Index 3.1 - Exam - Constitutional General appearance: Present: Alert pleasant 79-year-old female patient, on room air, cooperative, no acute distress - Respiratory Details: Lungs sounds diminished bilaterally. Respirations even, nonlabored. Currently on room air with oxygen saturation 9100%. Achieving 500 to 750 mL on her incentive spirometry. Chest tubes removed. - Cardiovascular Details: S1, S2 present. Regular rate and rhythm, sinus rhythm on telemetry with heart rate in the 70-80s. Sternum stable. Palpable peripheral pulses bilaterally. No edema present. No calf pain or tenderness noted. Heart hugger in place with patient demonstrating appropriate use. Antiembolism stockings, SCDs present. - Gastrointestinal Gastrointestinal Comment(s): Abdomen soft, nontender, nondistended. Active bowel sounds present 4 quadrants. Tolerating diet. - Genitourinary Genitourinary Comment(s): Adequate urine output - Integumentary Integumentary Comment(s): Skin is warm and dry with evidence of good perfusion. Anterior chest incision well approximated and covered with dry intact dressing. Left lower extremities EVH site well approximated. - Neurologic Neurologic: Present: CNII-XII intact - Musculoskeletal Musculoskeletal: Present: gait normal, strength equal bilaterally - Psychiatric Psychiatric: Present: A&O x's 3, appropriate affect, intact judgment & insight - Allied health notes Allied health notes reviewed: nursing - Labs CBC & Chem 7: 02/23/20 04:28 02/23/20 04:28 Labs: Abnormal Lab Results - Last 24 Hours (Table) 02/19/20 02/22/20 02/22/20 Range/Units 13:03 12:01 17:06 WBC (3.8-10.6) k/uL RBC (3.80-5.40) m/uL Hgb (11.4-16.0) gm/dL Hct (34.0-46.0) % MCV (80.0-100.0) fL MCH (25.0-35.0) pg RDW (11.5-15.5) % Lymphocytes # (Manual) (1.0-4.8) k/uL Macrocytosis Sodium (137-145) mmol/L Chloride (98-107) mmol/L BUN (7-17) mg/dL Creatinine (0.52-1.04) mg/dL Glucose (74-99) mg/dL POC Glucose (mg/dL) 137 H 124 H (75-99) mg/dL Osmolality (280-301) mosm/kg Calcium (8.4-10.2) mg/dL AST (14-36) U/L Total Protein (6.3-8.2) g/dL Albumin (3.5-5.0) g/dL Crossmatch See Detail 02/22/20 02/22/20 02/22/20 Range/Units 17:10 17:10 17:10 WBC (3.8-10.6) k/uL RBC 2.38 L (3.80-5.40) m/uL Hgb 8.2 L D (11.4-16.0) gm/dL Hct 25.0 L (34.0-46.0) % MCV 105.3 H (80.0-100.0) fL MCH (25.0-35.0) pg RDW 24.1 H (11.5-15.5) % Lymphocytes # (Manual) (1.0-4.8) k/uL Macrocytosis Marked A Sodium 123 L (137-145) mmol/L Chloride 93 L (98-107) mmol/L BUN 18 H (7-17) mg/dL Creatinine (0.52-1.04) mg/dL Glucose 115 H (74-99) mg/dL POC Glucose (mg/dL) (75-99) mg/dL Osmolality 260 L (280-301) mosm/kg Calcium 7.5 L (8.4-10.2) mg/dL AST (14-36) U/L Total Protein (6.3-8.2) g/dL Albumin (3.5-5.0) g/dL Crossmatch 02/22/20 02/23/20 02/23/20 Range/Units 20:22 00:25 04:28 WBC 3.2 L (3.8-10.6) k/uL RBC 1.97 L (3.80-5.40) m/uL Hgb 7.0 L (11.4-16.0) gm/dL Hct 20.6 L (34.0-46.0) % MCV 105.0 H (80.0-100.0) fL MCH 35.7 H (25.0-35.0) pg RDW 24.3 H (11.5-15.5) % Lymphocytes # (Manual) 0.61 L (1.0-4.8) k/uL Macrocytosis Marked A Sodium 123 L (137-145) mmol/L Chloride (98-107) mmol/L BUN (7-17) mg/dL Creatinine (0.52-1.04) mg/dL Glucose (74-99) mg/dL POC Glucose (mg/dL) 113 H (75-99) mg/dL Osmolality (280-301) mosm/kg Calcium (8.4-10.2) mg/dL AST (14-36) U/L Total Protein (6.3-8.2) g/dL Albumin (3.5-5.0) g/dL Crossmatch 02/23/20 02/23/20 02/23/20 Range/Units 04:28 06:57 11:21 WBC (3.8-10.6) k/uL RBC (3.80-5.40) m/uL Hgb (11.4-16.0) gm/dL Hct (34.0-46.0) % MCV (80.0-100.0) fL MCH (25.0-35.0) pg RDW (11.5-15.5) % Lymphocytes # (Manual) (1.0-4.8) k/uL Macrocytosis Sodium 124 L (137-145) mmol/L Chloride 96 L (98-107) mmol/L BUN 19 H (7-17) mg/dL Creatinine 0.50 L (0.52-1.04) mg/dL Glucose 104 H (74-99) mg/dL POC Glucose (mg/dL) 113 H 112 H (75-99) mg/dL Osmolality (280-301) mosm/kg Calcium 7.2 L (8.4-10.2) mg/dL AST 46 H (14-36) U/L Total Protein 4.5 L (6.3-8.2) g/dL Albumin 2.7 L (3.5-5.0) g/dL Crossmatch Assessment and Plan Assessment: 1 Severe triple-vessel coronary artery disease status post coronary artery bypass grafting 3 utilizing the AGRAWAL to the LAD, reverse saphenous vein grafts to the obtuse marginal artery and posterior descending artery. Postoperative day #3. 2 Postop acute blood loss anemia, expected outcome of surgery, current hemoglobin 7.0 status post 3 units packed red blood cells this admission 3 Hyponatremia, suspect secondary to hypervolemia. Current sodium 124. 3 History of macrocytic anemia, status post bone marrow biopsy, results pending 4 History of polio 5 History of seizure disorder Plan: The patient was seen and evaluated by Dr. Velazco Chest x-ray and labs reviewed Nephrology consulted for hyponatremia Again encouraged regarding the increased use the incentive spirometer and cough and deep breathing exercises Continue bronchodilators Increase her activity as tolerated We will continue to follow and make further recommendations based on her clinical status I, the cosigning physician, performed a history & physical examination of the patient. Lungs sounds with crackles in the bilateral posterior bases. Maintaining good O2 saturations in the 90s on room air. I discussed the assessment and plan of care with my nurse practitioner, Sarita Guerrero. I attest to the above note as dictated by her.
[2020-02-23] MEDS: FLUTICASONE 110 MCG INHALER INHALATION SCH ×2 (11:35→20:16)
--- NOTE | 2020-02-23 15:56 | P.PN ---
Progress Note - Text Progress Note Date: 02/23/20 Chief Complaint: Chest pain History of presenting complaint: This is a very pleasant 79-year-old patient of Dr. Jacqueline Lorenzo. Patient is presented 4 days ago to [facility]. In the doctor's office she was found to have hemoglobin of 6.5 and sent to the hospital. Initial hemoglobin was 6.5 given 2 units of blood. Hemoglobin did come up to 9.2. Patient also was having chest pain at home. Ruled in for acute non-Q-wave NE. Yesterday morning patient underwent a cardiac catheterization found to have left main and triple-vessel disease. Patient was transferred here for coronary bypass. Patient also was found to have bicytopenia and being worked up by hematology. Which is B12 folate was normal. Patient may need a bone marrow biopsy done the road. She is little bit tired. Currently no cardiac symptoms. 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 Underwent three-vessel bypass on February 19. Today-Up in a chair. Eating slightly better. Mild shortness of breath. Did walk a bit. Review of systems: Was done for constitutional, cardiovascular, GI, pulmonary. relevant finding as above Active Medications Acetaminophen (Tylenol Tab) 1,000 mg PO Q6HR PRN PRN Reason: Fever and/ or Pain Last Admin: 02/22/20 23:49 Dose: 1,000 mg Documented by: Albuterol/Ipratropium (Duoneb 0.5 Mg-3 Mg/3 Ml Soln) 3 ml INHALATION RT-Q2H PRN PRN Reason: Shortness Of Breath Or Wheezing Albuterol/Ipratropium (Duoneb 0.5 Mg-3 Mg/3 Ml Soln) 3 ml INHALATION RT-QID [facility] Last Admin: 02/23/20 11:35 Dose: 3 ml Documented by: Ascorbic Acid (Vitamin C) 500 mg PO BID-W/MEALS [facility] Last Admin: 02/23/20 06:51 Dose: 500 mg Documented by: Aspirin (Aspirin) 81 mg PO DAILY [facility] Last Admin: 02/23/20 08:40 Dose: 81 mg Documented by: Atorvastatin Calcium (Lipitor) 40 mg PO DAILY [facility] Last Admin: 02/23/20 08:40 Dose: 40 mg Documented by: Benzocaine/Menthol (Cepacol Lozenge) 1 each MUCOUS MEM Q2H PRN PRN Reason: Sore Throat Bisacodyl (Dulcolax) 10 mg RECTAL DAILY PRN PRN Reason: Constipation Clopidogrel Bisulfate (Plavix) 75 mg PO DAILY [facility] Last Admin: 02/23/20 08:40 Dose: 75 mg Documented by: Ferrous Sulfate (Feosol) 325 mg PO BID-W/MEALS [facility] Last Admin: 02/23/20 06:51 Dose: 325 mg Documented by: Fluticasone Propionate (Flovent 110 Mcg Inhaler) 2 puff INHALATION RT-BID [facility] Last Admin: 02/23/20 11:35 Dose: 2 puff Documented by: Folic Acid (Folic Acid) 1 mg PO DAILY@1200 [facility] Last Admin: 02/23/20 11:19 Dose: 1 mg Documented by: Guaifenesin (Mucinex) 600 mg PO Q12HR PRN PRN Reason: Cough Heparin Sodium (Porcine) (Heparin) 5,000 unit SQ Q8HR [facility] Last Admin: 02/23/20 08:39 Dose: 5,000 unit Documented by: Amiodarone HCl 150 mg/ (Dextrose/Water) 103 mls @ 618 mls/hr IV .Q10M PRN; Protocol PRN Reason: A.FIB/FLUTTER Amiodarone HCl 360 mg/ (Dextrose/Water) 200 mls @ 33.333 mls/hr IV .Q6H PRN; Protocol PRN Reason: A.FIB/FLUTTER Amiodarone HCl 300 mg/ (Dextrose/Water) 250 mls @ 25 mls/hr IV .Q10H PRN; Protocol PRN Reason: A.FIB/FLUTTER Insulin Aspart (Novolog) 0 unit SQ ACHS [facility]; Protocol Last Admin: 02/23/20 14:51 Dose: Not Given Documented by: Magnesium Hydroxide (Milk Of Magnesia) 2,400 mg PO BID PRN PRN Reason: Constipation Melatonin (Melatonin) 3 mg PO HS [facility] Last Admin: 02/23/20 06:51 Dose: Not Given Documented by: Metoclopramide HCl (Reglan) 10 mg IVP Q4H PRN PRN Reason: Nausea And Vomiting Metoprolol Tartrate (Lopressor) 25 mg PO BID [facility] Last Admin: 02/23/20 08:40 Dose: 25 mg Documented by: Miscellaneous Information (Potassium Per Protocol) 1 each MISCELLANE DAILY PRN; Protocol PRN Reason: Per Protocol Miscellaneous Information (Magnesium Per Protocol) 1 each MISCELLANE DAILY PRN; Protocol PRN Reason: Per Protocol Miscellaneous Information (Phosphorus Per Protocol) 1 each MISCELLANE DAILY PRN; Protocol PRN Reason: Per Protocol Montelukast Sodium (Singulair) 10 mg PO [facility] Last Admin: 02/22/20 20:46 Dose: 10 mg Documented by: Ondansetron HCl (Zofran) 4 mg IVP Q6HR PRN PRN Reason: Nausea And Vomiting Last Admin: 02/22/20 11:51 Dose: 4 mg Documented by: Pantoprazole Sodium (Protonix) 40 mg PO AC-BRKFST [facility] Last Admin: 02/23/20 06:51 Dose: 40 mg Documented by: Phenobarbital (Luminal) 32.4 mg PO BID [facility] Last Admin: 02/23/20 08:40 Dose: 32.4 mg Documented by: Phenytoin Sodium (Dilantin) 100 mg PO TID [facility] Last Admin: 02/23/20 08:40 Dose: 100 mg Documented by: Senna/Docusate Sodium (Senokot-S) 2 each PO [facility] Last Admin: 02/22/20 20:51 Dose: 2 each Documented by: Sodium Chloride (Saline Flush) 10 ml IV BID [facility] Last Admin: 02/23/20 08:40 Dose: 10 ml Documented by: Thiamine HCl (Vitamin B-1) 100 mg PO DAILY@1200 [facility] Last Admin: 02/23/20 11:19 Dose: 100 mg Documented by: Physical examination: VITAL SIGNS: 98.7, 90, 23, 09/04/1973, 97% on room air GENERAL: Sitting up in a chair, comfortable EYES: Pupils equal. Conjunctiva normal. HEENT: External appearance of nose and ears normal, oral cavity grossly normal. NECK: JVD not raised; masses not palpable. HEART: First and second heart sounds are normal; minimal edema. LUNGS: Respiratory rate increased; decreased breath sounds, ABDOMEN: Soft, nontender, liver spleen not palpable, no masses palpable. PSYCH: AAO 3 INVESTIGATIONS, reviewed in the clinical context: White count 3.2 hemoglobin 7 platelets 233 potassium 4.2 sodium 124 bun 19 creatinine 0.50 Previous testing White count 1.3 hemoglobin 8 platelets 350 potassium 4.5 bun 14 creatinine 0.51 TSH 2.2 LDL 69 2-D echocardiogram done at [facility] showed hypokinetic anterior wall and EF of 45% Cardiac catheterization done at [facility] showed left main disease and severe triple-vessel coronary artery disease Abdominal ultrasound-unremarkable Chest x-ray film personally reviewed by me-possibly some chronic scarring EKG tracing personally noted by me. Assessment: -Triple-vessel coronary bypass-February 19 -Acute non-Q-wave myocardial infarction POA -Severe left main and triple-vessel coronary artery disease per cardiac catheterization awaiting coronary bypass -Bicytopenia with a recent hemoglobin of 6.5-received 3 units of blood . -Acute postop postprocedure blood loss anemia expected from surgery -Chronic epilepsy -Polio causing some weakness on the left of the body -Primary osteoarthritis affecting the hands and knees -Hypoosmolar hyponatremia from excessive fluid intake and decrease salt intake- slow to respond. Plan: -Continue with fluid restriction and free water limitation. Encourage oral intake. Repeat labs. Patient may require blood transfusion depending on blood pressure.
[2020-02-23 16:39] LABS: Glucose,Whole Blood 104 mg/dL (75-99)
[2020-02-23 20:03] LABS: Glucose,Whole Blood 140 mg/dL (75-99)
[2020-02-23] MEDS: MONTELUKAST 10 MG TAB PO SCH (20:09)
[2020-02-23] MEDS: SENNOSIDES-DOCUSATE SODIUM 1 EACH TAB PO SCH (20:09)
[2020-02-24 02:13] LABS: Glucose,Whole Blood 126 mg/dL (75-99)
[2020-02-24 04:43] LABS: Anisocytosis Marked; Basophils % (A) 0 %; Eosinophils # (A) 0.1 k/uL (0-0.7); Eosinophils % (A) 3 %; HCT 21.6 % (34.0-46.0); HGB 7.1 gm/dL (11.4-16.0); Lymphocytes # (A) 0.6 k/uL (1.0-4.8); Lymphocytes % (A) 20 %; MCH 34.9 pg (25.0-35.0); MCHC 33.1 g/dL (31.0-37.0); MCV 105.2 fL (80.0-100.0); Macrocytosis Marked; Mean Platelet Volume 9.2; Monocytes # (A) 0.1 k/uL (0-1.0); Monocytes % (A) 4 %; Neutrophils # (A) 2.2 k/uL (1.3-7.7); Neutrophils % (A) 71 %; Platelet Count 316 k/uL (150-450); RBC 2.05 m/uL (3.80-5.40); RDW 24.8 % (11.5-15.5); WBC 3.2 k/uL (3.8-10.6)
[2020-02-24 05:03] LABS: African American GFR (CKD) >90 (>60 ml/min/1.73 sqM); Anion Gap 4 mmol/L; Blood Urea Nitrogen 15 mg/dL (7-17); Calcium 7.5 mg/dL (8.4-10.2); Carbon Dioxide 23 mmol/L (22-30); Chloride 104 mmol/L (98-107); Glucose 106 mg/dL (74-99); Non-African American GFR(CKD) >90 (>60 ml/min/1.73 sqM); Potassium 3.7 mmol/L (3.5-5.1); Sodium 131 mmol/L (137-145)
--- NOTE | 2020-02-24 06:13 | P.CONS ---
History of Present Illness - Chief Complaint Cardiac debility - History of Present Illness I had the opportunity to see patient for inpatient rehab consultation with regard to cardiac debility. She was admitted to [facility] April 20 4 days' duration and go in 6.5. Also having chest pain and found to have non-Q AR. Did undergo CABG 3 vessel with amputation left atrial appendage by Dr. Gastelum. Seen in consultation by Dr. Lucas for hyponatremia. Chest x-rays followed for atelectasis and chest tubes. Carotid Doppler with plaque a right carotid bulb at most. PT reports two-person assistance functional debility and gait up to 132 feet total, fatigues. OT prescribed. Previous functional history as elicited patient: 79-year-old right-handed white female single lives in one floor home alone. Retired. Describes independent with own cooking, laundry, driving, standing shower and gait without device. Dr. Lorenzo's PMD. Denies tobacco or alcohol. Family history both parents with artery disease as well as brothers and sisters. Review of Systems Review of systems: ENT: Denies sneezes or discharge. Eyes: Denies discharge or photophobia. Cardiac: Some sternal discomfort. Pulmonary: At least mild shortness of breath. Breast: Denies discharge or lumps. Gastrointestinal: Denies nausea, emesis, constipation, diarrhea. Genitourinary: Denies discharge or frequency. Musculoskeletal: Denies muscle or bone aches. Neurologic: Generalized weakness. Endocrine: Denies shakes or sweats. Oncology: Denies cancers. Dermatologic: Denies rash, itching, pruritus. ALLERGY/immunology: Denies sneezes, rashes. Past Medical History Past Medical History: Coronary Artery Disease (CAD), Myocardial Infarction (AR), Pneumonia, Seizure Disorder Additional Past Medical History / Comment(s): polio, shingles Last Myocardial Infarction Date:: ? History of Any Multi-Drug Resistant Organisms: None Reported Past Surgical History: Appendectomy, Hysterectomy, Tonsillectomy Additional Past Surgical History / Comment(s): hemmorhoid surgery x 3, breast biopsy x3 Past Anesthesia/Blood Transfusion Reactions: No Reported Reaction Past Psychological History: No Psychological Hx Reported Smoking Status: Never smoker Past Alcohol Use History: None Reported Past Drug Use History: None Reported - Past Family History Mother Family Medical History: Coronary Artery Disease (CAD) Additional Family Medical History / Comment(s): glucoma, ruptured aorta Father Family Medical History: Chest Pain / Angina, Coronary Artery Disease (CAD) Additional Family Medical History / Comment(s): CABG (Vineberg procedure at 54 years old) Sister(s) Family Medical History: Cancer Additional Family Medical History / Comment(s): Breast cancer with double mastectomy Medications and Allergies Home Medications Medication Instructions Recorded Confirmed Type Albuterol Sulfate [Albuterol 2 puff PO RT-Q4H PRN 02/18/20 02/18/20 History Sulfate Hfa] Alendronate Sodium [Fosamax] 70 mg PO FR 02/18/20 02/18/20 History Aspirin EC [Ecotrin] 325 mg PO DAILY 02/18/20 02/18/20 History Beclomethasone Dip 80 Mcg/Puff 2 puff INHALATION RT-BID 02/18/20 02/18/20 History [Qvar 80 mcg] Cholecalciferol [Vitamin D3 (25 1,000 unit PO DAILY 02/18/20 02/18/20 History Mcg = 1000 Iu)] Fexofenadine HCl [Jessica Allergy] 180 mg PO DAILY PRN 02/18/20 02/18/20 History Ipratropium-Albuterol Nebulize 3 ml INHALATION RT-QID PRN 02/18/20 02/18/20 History [Duoneb 0.5 mg-3 mg/3 ml Soln] Montelukast Sodium [Singulair] 10 mg PO HS 02/18/20 02/18/20 History PHENobarbital 32.4 mg PO BID 02/18/20 02/18/20 History Phenytoin Sodium Extended 100 mg PO TID 02/18/20 02/18/20 History [Dilantin] Allergies Allergy/AdvReac Type Severity Reaction Status Date / Time No Known Allergies Allergy Verified 02/18/20 18:11 Physical Exam Vitals: Vital Signs Temp Pulse Resp BP Pulse Ox 02/24/20 04:00 98.4 F 80 22 95/50 94 L 02/24/20 03:00 81 22 02/24/20 02:00 80 24 02/24/20 01:00 80 22 02/24/20 00:00 98.8 F 81 24 112/59 96 02/23/20 23:00 82 25 H 112/59 02/23/20 22:00 88 29 H 112/59 02/23/20 21:00 80 28 H 112/59 02/23/20 20:16 105 H 37 H 112/59 02/23/20 20:00 98.0 F 97 27 H 105/56 96 02/23/20 19:00 105 H 26 H 02/23/20 18:00 102 H 32 H 02/23/20 17:00 103 H 34 H 02/23/20 16:16 88 02/23/20 16:07 88 02/23/20 16:00 89 16 116/65 98 02/23/20 12:00 98.7 F 90 23 123/76 97 02/23/20 11:53 85 02/23/20 11:36 85 02/23/20 11:00 78 24 107/57 97 02/23/20 10:00 73 19 107/57 96 02/23/20 09:00 84 23 106/59 97 02/23/20 08:00 98.6 F 84 22 114/76 100 02/23/20 07:50 85 02/23/20 07:00 82 23 96/51 98 Intake and Output 02/23/20 02/23/20 02/24/20 14:59 22:59 06:59 Intake Total 300 0 240 Output Total 700 860 650 Balance -400 -860 -410 Intake: IV 300 Sodium Chloride 0.9% 1, 300 000 ml @ 75 mls/hr IV . [id number] [facility] Rx#:[id number] Oral 0 240 Output: Urine 700 860 650 Other: Voiding Method Bedside Commode Bedside Commode Bedside Commode # Voids 1 1 2 # Bowel Movements 1 Weight 64.8 kg 60.2 kg Skin: Atrophic, intact. General: Medium build and comfortable appearance. Head: Normocephalic, atraumatic. Eyes: Symmetric. Pupils equal round. Ears: Symmetric. Hearing within normal limits. Mouth: Clear. Neck: Supple. Carotid without bruit. Cardiac: Regular rate and rhythm. Lungs: Clear anteriorly and posteriorly. Abdomen: Soft active nontender. Extremities: Normal tone. Neurological: Mental status: Alert, cooperative, pleasant. Cranial nerves: Symmetric facial tone and trapezius. Motor: Can actively elevate all 4 limbs. Sensation: Intact throughout. DTRs: Symmetric and equal throughout. Mobility: Did not attempt to sit or stand this early a.m. Results CBC & Chem 7: 02/24/20 04:03 02/24/20 04:03 Labs: Abnormal Lab Results - Last 24 Hours (Table) 02/23/20 02/23/20 02/23/20 Range/Units 04:28 06:57 11:21 WBC (3.8-10.6) k/uL RBC (3.80-5.40) m/uL Hgb (11.4-16.0) gm/dL Hct (34.0-46.0) % MCV (80.0-100.0) fL RDW (11.5-15.5) % Lymphocytes # (1.0-4.8) k/uL Lymphocytes # (Manual) 0.61 L (1.0-4.8) k/uL Macrocytosis Sodium (137-145) mmol/L Creatinine (0.52-1.04) mg/dL Glucose (74-99) mg/dL POC Glucose (mg/dL) 113 H 112 H (75-99) mg/dL Calcium (8.4-10.2) mg/dL 02/23/20 02/23/20 02/23/20 Range/Units 16:36 17:07 20:02 WBC (3.8-10.6) k/uL RBC (3.80-5.40) m/uL Hgb (11.4-16.0) gm/dL Hct (34.0-46.0) % MCV (80.0-100.0) fL RDW (11.5-15.5) % Lymphocytes # (1.0-4.8) k/uL Lymphocytes # (Manual) (1.0-4.8) k/uL Macrocytosis Sodium 129 L (137-145) mmol/L Creatinine (0.52-1.04) mg/dL Glucose (74-99) mg/dL POC Glucose (mg/dL) 104 H 140 H (75-99) mg/dL Calcium (8.4-10.2) mg/dL 02/24/20 02/24/20 02/24/20 Range/Units 02:10 04:03 04:03 WBC 3.2 L (3.8-10.6) k/uL RBC 2.05 L (3.80-5.40) m/uL Hgb 7.1 L (11.4-16.0) gm/dL Hct 21.6 L (34.0-46.0) % MCV 105.2 H (80.0-100.0) fL RDW 24.8 H (11.5-15.5) % Lymphocytes # 0.6 L (1.0-4.8) k/uL Lymphocytes # (Manual) (1.0-4.8) k/uL Macrocytosis Marked A Sodium 131 L (137-145) mmol/L Creatinine 0.49 L (0.52-1.04) mg/dL Glucose 106 H (74-99) mg/dL POC Glucose (mg/dL) 126 H (75-99) mg/dL Calcium 7.5 L (8.4-10.2) mg/dL Assessment and Plan (1) NSTEMI (non-ST elevated myocardial infarction) Current Visit: Yes Status: Acute Code(s): I21.4 - NON-ST ELEVATION (NSTEMI) MYOCARDIAL INFARCTION SNOMED Code(s): 70736348 (2) Status post aorto-coronary artery bypass graft Current Visit: Yes Status: Acute Code(s): Z95.1 - PRESENCE OF AORTOCORONARY BYPASS GRAFT SNOMED Code(s): 187408097 (3) Macrocytic anemia Current Visit: Yes Status: Chronic Priority: Medium Code(s): D53.9 - NUTRITIONAL ANEMIA, UNSPECIFIED SNOMED Code(s): 80625607 Plan: Impression: 1. Cardiac debility. 2. Coronary disease with non-STEMI and recent CABG. 3. Anemia. 4. History of seizure disorder. Comments and plan: At this time PT ongoing and OT prescribed. We'll follow OT notes. Patient has already been prepared a possible inpatient rehab which seems appropriate at this time.
[2020-02-24] MEDS ORDERED: POTASSIUM CHLORIDE ER 20 MEQ TAB.ER PO SCH (06:30)
--- NOTE | 2020-02-24 06:57 | XR ---
EXAMINATION TYPE: XR chest 2V DATE OF EXAM: 02/24/2020 COMPARISON: 02/23/2020 HISTORY: Shortness of breath TECHNIQUE: Frontal and lateral views of the chest are obtained. FINDINGS: Scattered senescent parenchymal changes noted. Hyperinflation compatible with COPD. Persistent but improving left basilar atelectasis and/or infiltrate. Small bilateral pleural effusion s. Small stable biapical pneumothoraces redemonstrated. Small amount of subcutaneous air along the le ft upper chest wall. Heart size is stable. Mediastinal structures are stable and grossly unremarkable. No evidence for hilar prominence. Degenerative changes dorsal spine. IMPRESSION: 1. Persistent but improving left basilar atelectasis and/or infiltrate. Small bilateral pleural effus ions. Small stable biapical pneumothoraces redemonstrated. Small amount of subcutaneous air along the left upper chest wall.
[2020-02-24] MEDS: INSULIN ASPART (NovoLOG) 100 UNIT/ML VIAL SQ SCH ×4 (07:06→21:34)
--- NOTE | 2020-02-24 07:13 | P.PN ---
Subjective Progress Note Date: 02/24/20 Principal diagnosis: Severe calcific coronary artery disease with left main disease, non-STEMI this admission. Previous medical history of macrocytic anemia, polio, seizures, pneu monia, and family history of premature coronary artery disease. POD #4 off-pump coronary artery bypass graft 3 with left internal mammary artery to the left anterior descending artery, reverse saphenous vein graft to the second obtuse marginal artery and posterior descending coronary artery with endovascular vein harvest of the left greater saphenous vein from mid calf to the groin, left atrial appendage exclusion with 35 mm AtriCure clip and aspirate and biopsy of the sternal bone marrow. Postoperative acute blood loss anemia, expected given patient's preoperative history of macrocytic anemia Postoperative hyponatremia, unexpected The patient is currently sitting up in the recliner in the intensive care unit in no acute distress. She denies pain, denies shortness of breath. Currently in normal sinus rhythm and hemodynamically stable on no inotropes or pressors. Hemoglobin 7.0 yesterday, 7.1 this AM. Sodium 124 yesterday, fluid restrictions of 1500 mL/24 hours continues, patient received Tolvaptan yesterday, sodium increased to 131 this morning. Patient states she is feeling a little better everyday. Ambulate in the hallway 4 times yesterday. Objective - Vital Signs Vital signs: Vital Signs Temp 98.4 F 02/24/20 04:00 Pulse 80 02/24/20 04:00 Resp 22 02/24/20 04:00 BP 95/50 02/24/20 04:00 Pulse Ox 94 L 02/24/20 04:00 Intake & Output 02/23/20 02/24/20 02/24/20 18:59 06:59 18:59 Intake Total 300 240 Output Total 1100 1110 Balance -800 -870 Weight 60.2 kg Intake: IV 300 Sodium Chloride 0.9% 1, 300 000 ml @ 75 mls/hr IV . [id number] [facility] Rx#:[id number] Oral 240 Output: Urine 1100 1110 Other: Voiding Method Bedside Commode Bedside Commode # Voids 1 2 # Bowel Movements 1 ABP, PAP, CO, CI - Last Documented Arterial Blood Pressure 131/47 Pulmonary Artery Pressure 29/13 Cardiac Output 5.2 Cardiac Index 3.1 - Constitutional General appearance: Present: cooperative, no acute distress, thin - Respiratory Details: Lungs sounds diminished bilaterally. Respirations even, nonlabored. Currently on room air with oxygen saturation 94%. Only able to achieve 500 mL on her incentive spirometry. Strong cough. - Cardiovascular Details: S1, S2 present. Regular rate and rhythm, sinus rhythm on telemetry with heart rate in the 70-80s. Sternum stable. Palpable peripheral pulses bilaterally. No edema present. No calf pain or tenderness noted. Heart hugger in place with patient demonstrating appropriate use. Antiembolism stockings, SCDs present. - Gastrointestinal Gastrointestinal Comment(s): Abdomen soft, nontender, nondistended. Active bowel sounds present 4 quadrants. Tolerating diet. Positive bowel movement. - Genitourinary Genitourinary Comment(s): Continues to void clear, yellow urine - Integumentary Integumentary Comment(s): Skin is warm and dry with evidence of good perfusion. Anterior chest incision well approximated and covered with dry intact dressing. Left lower extremities EVH site well approximated. - Neurologic Neurologic: Present: CNII-XII intact - Musculoskeletal Musculoskeletal: Present: gait normal, generalized weakness, strength equal bilaterally - Psychiatric Psychiatric: Present: A&O x's 3, appropriate affect, intact judgment & insight - Allied health notes Allied health notes reviewed: nursing - Labs CBC & Chem 7: 02/24/20 04:03 02/24/20 04:03 Labs: Abnormal Lab Results - Last 24 Hours (Table) 02/23/20 02/23/20 02/23/20 Range/Units 11:21 16:36 17:07 WBC (3.8-10.6) k/uL RBC (3.80-5.40) m/uL Hgb (11.4-16.0) gm/dL Hct (34.0-46.0) % MCV (80.0-100.0) fL RDW (11.5-15.5) % Lymphocytes # (1.0-4.8) k/uL Macrocytosis Sodium 129 L (137-145) mmol/L Creatinine (0.52-1.04) mg/dL Glucose (74-99) mg/dL POC Glucose (mg/dL) 112 H 104 H (75-99) mg/dL Calcium (8.4-10.2) mg/dL 02/23/20 02/24/20 02/24/20 Range/Units 20:02 02:10 04:03 WBC 3.2 L (3.8-10.6) k/uL RBC 2.05 L (3.80-5.40) m/uL Hgb 7.1 L (11.4-16.0) gm/dL Hct 21.6 L (34.0-46.0) % MCV 105.2 H (80.0-100.0) fL RDW 24.8 H (11.5-15.5) % Lymphocytes # 0.6 L (1.0-4.8) k/uL Macrocytosis Marked A Sodium (137-145) mmol/L Creatinine (0.52-1.04) mg/dL Glucose (74-99) mg/dL POC Glucose (mg/dL) 140 H 126 H (75-99) mg/dL Calcium (8.4-10.2) mg/dL 02/24/20 Range/Units 04:03 WBC (3.8-10.6) k/uL RBC (3.80-5.40) m/uL Hgb (11.4-16.0) gm/dL Hct (34.0-46.0) % MCV (80.0-100.0) fL RDW (11.5-15.5) % Lymphocytes # (1.0-4.8) k/uL Macrocytosis Sodium 131 L (137-145) mmol/L Creatinine 0.49 L (0.52-1.04) mg/dL Glucose 106 H (74-99) mg/dL POC Glucose (mg/dL) (75-99) mg/dL Calcium 7.5 L (8.4-10.2) mg/dL - Imaging and Cardiology Chest x-ray: report reviewed, image reviewed Assessment and Plan Assessment: 1. Severe calcific triple-vessel coronary artery disease with left main disease, status post three-vessel CABG 2. Macrocytic anemia unknown origin, status post bone marrow biopsy of the sternum 3. Seizure disorder, currently treated with Dilantin and phenobarb 4. History of polio 5. History of pneumonia, last episode greater than 6 months ago 6. Family history of premature coronary artery disease 7. Lifelong nonsmoker 8. Postoperative acute blood loss anemia, expected 9. Postoperative hyponatremia, unexpected, resolving Plan: 1. Continue aspirin, statin, beta manuel therapy. 2. Encourage incentive spirometry use 10 times every hour while awake 3. Increase activity, ambulate as tolerated. PT/OT/cardiac rehab following 4. Will monitor daily labs and x-rays. Electrolyte replacement per protocol. 5. GI/DVT prophylaxis 6. Pain controlled current medication regimen. 7. Insulin management per primary care service. 8. Continue phenobarbital and Dilantin for seizure control 9. Bone marrow biopsy results pending. Hematology following. 10. Nephrology following for hyponatremia. 11. Patient may need rehab at discharge due to lack of any family at home, need for frequent lab monitoring due to hyponatremia and anemia, frequent physician monitoring. Dr. Hooks consulted for IPR 12. Transfer orders placed yesterday for 3 S. cardiac stepdown unit. Patient may transfer when bed available 13. Discharge planning in progress. Anticipate discharge to inpatient rehab in the next 24-48 hours once insurance authorization obtained 14. More recommendations to follow Time with Patient: Greater than 30
[2020-02-24] MEDS ORDERED: POTASSIUM CHLORIDE ER 10 MEQ TAB.ER.PRT PO STA (07:51)
[2020-02-24] MEDS: FLUTICASONE 110 MCG INHALER INHALATION SCH ×2 (08:12→20:18)
[2020-02-24] MEDS: IPRATROPIUM-ALBUTEROL 3 ML NEB INHALATION SCH ×4 (08:12→20:18)
[2020-02-24] MEDS: FERROUS SULFATE 325 MG TAB PO SCH ×2 (09:03→17:36)
[2020-02-24] MEDS: METOPROLOL TARTRATE 25 MG TAB PO SCH ×2 (09:03→21:58)
[2020-02-24] MEDS: ASCORBIC ACID 500 MG TAB PO SCH ×2 (09:03→17:35)
[2020-02-24] MEDS: ATORVASTATIN 40 MG TAB PO SCH (09:03)
[2020-02-24] MEDS: PHENYTOIN SODIUM EXTENDED 100 MG CAP PO SCH ×3 (09:03→21:58)
[2020-02-24] MEDS: PANTOPRAZOLE 40 MG TABLET PO SCH (09:03)
[2020-02-24] MEDS: ASPIRIN 81 MG PO SCH (09:04)
[2020-02-24] MEDS: HEPARIN SODIUM,PORCINE 5,000 UNIT/ML 1 ML VIAL SQ SCH ×3 (09:05→23:50)
[2020-02-24] MEDS: CLOPIDOGREL 75 MG TAB PO SCH (09:05)
[2020-02-24] MEDS: PHENobarbital 32.4 MG TAB PO SCH ×2 (09:10→23:53)
--- NOTE | 2020-02-24 09:23 | P.PN ---
Subjective Patient is seen in follow-up for hyponatremia. Sodium level 131 this morning. She received a dose of Samsca on February 22. Oral intake is fair. No vomiting or diarrhea. No chest pain or shortness of breath. Vital signs are stable. General: The patient appeared well nourished and normally developed. HEENT: Head exam is unremarkable. Neck is without jugular venous distension. LUNGS: Lungs are clear to auscultation and percussion. Breath sounds decreased. HEART: Rate and Rhythm are regular. ABDOMEN: Soft, nontender. EXTREMITITES: No clubbing, cyanosis, or edema. Objective - Vital Signs Vital signs: Vital Signs Temp 98.6 F 02/24/20 09:14 Pulse 94 02/24/20 09:14 Resp 18 02/24/20 09:14 BP 111/51 02/24/20 09:14 Pulse Ox 94 L 02/24/20 09:14 Intake & Output 02/23/20 02/24/20 02/24/20 18:59 06:59 18:59 Intake Total 300 240 Output Total 1100 1110 Balance -800 -870 Weight 60.2 kg Intake: IV 300 Sodium Chloride 0.9% 1, 300 000 ml @ 75 mls/hr IV . [id number] [facility] Rx#:[id number] Oral 240 Output: Urine 1100 1110 Other: Voiding Method Bedside Commode Bedside Commode # Voids 1 2 0 # Bowel Movements 1 ABP, PAP, CO, CI - Last Documented Arterial Blood Pressure 131/47 Pulmonary Artery Pressure 29/13 Cardiac Output 5.2 Cardiac Index 3.1 - Labs CBC & Chem 7: 02/24/20 04:03 02/24/20 04:03 Labs: Abnormal Lab Results - Last 24 Hours (Table) 02/23/20 02/23/20 02/23/20 Range/Units 11:21 16:36 17:07 WBC (3.8-10.6) k/uL RBC (3.80-5.40) m/uL Hgb (11.4-16.0) gm/dL Hct (34.0-46.0) % MCV (80.0-100.0) fL RDW (11.5-15.5) % Lymphocytes # (1.0-4.8) k/uL Macrocytosis Sodium 129 L (137-145) mmol/L Creatinine (0.52-1.04) mg/dL Glucose (74-99) mg/dL POC Glucose (mg/dL) 112 H 104 H (75-99) mg/dL Calcium (8.4-10.2) mg/dL 02/23/20 02/24/20 02/24/20 Range/Units 20:02 02:10 04:03 WBC 3.2 L (3.8-10.6) k/uL RBC 2.05 L (3.80-5.40) m/uL Hgb 7.1 L (11.4-16.0) gm/dL Hct 21.6 L (34.0-46.0) % MCV 105.2 H (80.0-100.0) fL RDW 24.8 H (11.5-15.5) % Lymphocytes # 0.6 L (1.0-4.8) k/uL Macrocytosis Marked A Sodium (137-145) mmol/L Creatinine (0.52-1.04) mg/dL Glucose (74-99) mg/dL POC Glucose (mg/dL) 140 H 126 H (75-99) mg/dL Calcium (8.4-10.2) mg/dL 02/24/20 Range/Units 04:03 WBC (3.8-10.6) k/uL RBC (3.80-5.40) m/uL Hgb (11.4-16.0) gm/dL Hct (34.0-46.0) % MCV (80.0-100.0) fL RDW (11.5-15.5) % Lymphocytes # (1.0-4.8) k/uL Macrocytosis Sodium 131 L (137-145) mmol/L Creatinine 0.49 L (0.52-1.04) mg/dL Glucose 106 H (74-99) mg/dL POC Glucose (mg/dL) (75-99) mg/dL Calcium 7.5 L (8.4-10.2) mg/dL Assessment and Plan Plan: Assessment: 1. Acute hyponatremia. This is secondary to SIADH from pain and nausea as well as poor solute intake and use of nonsteroidals. Sodium level 131 today. No significant improvement with IV fluids. TSH normal. Urine sodium 85 and urine osmolality 299. 2. Non-ST with his myocardial infarction status post CABG February 19. 3. Acute blood loss anemia s/p blood transfusion. Plan: Encourage oral intake, particularly protein. Maintain fluid restriction. Repeat electrolytes in the morning.
[2020-02-24] MEDS: ACETAMINOPHEN TAB 500 MG TAB PO PRN ×2 (09:31→17:01)
--- NOTE | 2020-02-24 09:36 | PN ---
PROGRESS NOTE Mrs. Petit is in a sinus rhythm. Her sodium has improved. She is going to probably go to inpatient rehab today. She is feeling better, vitals are stable. She underwent aortocoronary bypass surgery, had severe calcified coronary arteries, clinically improving. Her sodium has come back to 131. Vitals are stable. JVD not evident. S1, S2 heard normally. Lungs reveal improved air entry. Abdomen and lower extremity exam unchanged. Plan is to continue incentive spirometry, pulmonary toilet. Same medications and okay for her to go to inpatient rehab. MMODL / IJN: [id number] /
[2020-02-24 11:54] LABS: Glucose,Whole Blood 114 mg/dL (75-99)
--- NOTE | 2020-02-24 12:57 | P.PN ---
Subjective Progress Note Date: 02/24/20 A 79-year-old. Patient is postop day #3 following three-vessel coronary artery bypass surgery. The patient is doing well. No specific complaints. She is using incentive spirometer. She is trying to pull more than a 500 on her incentive spirometer. Chest x-ray shows very tiny apical pneumothoraces and a small left-sided pleural effusion. No evidence of any pneumonia. All of the chest tubes are removed. The patient has developed some subcutaneous emphysema in the left upper shoulder area which is stable compared to yesterday. No altered mentation. No cardiac arrhythmias and the patient's surgical wound site is dry clean and intact. Hemoglobin stable at 7.1. Rest of the blood work and electrodes are all within normal limits. She is on room air oxygen for now. Objective - Vital Signs Vital signs: Vital Signs Temp 98.6 F 02/24/20 09:14 Pulse 83 02/24/20 12:06 Resp 18 02/24/20 09:14 BP 111/51 02/24/20 09:14 Pulse Ox 94 L 02/24/20 09:14 Intake & Output 02/23/20 02/24/20 02/24/20 18:59 06:59 18:59 Intake Total 300 240 Output Total 1100 1110 Balance -800 -870 Weight 60.2 kg Intake: IV 300 Sodium Chloride 0.9% 1, 300 000 ml @ 75 mls/hr IV . [id number] [facility] Rx#:[id number] Oral 240 Output: Urine 1100 1110 Other: Voiding Method Bedside Commode Bedside Commode # Voids 1 2 0 # Bowel Movements 1 1 ABP, PAP, CO, CI - Last Documented Arterial Blood Pressure 131/47 Pulmonary Artery Pressure 29/13 Cardiac Output 5.2 Cardiac Index 3.1 - Exam - Constitutional General appearance: Present: Alert pleasant 79-year-old female patient, on room air, cooperative, no acute distress the patient is currently on room air oxygen. - Respiratory Details: Lungs sounds diminished bilaterally. Respirations even, nonlabored. Currently on room air with oxygen saturation 9100%. Achieving 500 to 750 mL on her incentive spirometry. Chest tubes removed. The breath sounds are diminished in the left lung base compared to the right. - Cardiovascular Details: S1, S2 present. Regular rate and rhythm, sinus rhythm on telemetry with heart rate in the 70-80s. Sternum stable. Palpable peripheral pulses bilaterally. No edema present. No calf pain or tenderness noted. Heart hugger in place with patient demonstrating appropriate use. Antiembolism stockings, SCDs present. - Gastrointestinal Gastrointestinal Comment(s): Abdomen soft, nontender, nondistended. Active bowel sounds present 4 quadran ts. Tolerating diet. - Genitourinary Genitourinary Comment(s): Adequate urine output - Integumentary Integumentary Comment(s): Skin is warm and dry with evidence of good perfusion. Anterior chest incision well approximated and covered with dry intact dressing. Left lower extremities EVH site well approximated. - Neurologic Neurologic: Present: CNII-XII intact - Musculoskeletal Musculoskeletal: Present: gait normal, strength equal bilaterally - Psychiatric No anxiety, no depression, no the ileum, no psychosis. - Labs CBC & Chem 7: 02/24/20 04:03 02/24/20 04:03 Labs: Abnormal Lab Results - Last 24 Hours (Table) 02/23/20 02/23/20 02/23/20 Range/Units 16:36 17:07 20:02 WBC (3.8-10.6) k/uL RBC (3.80-5.40) m/uL Hgb (11.4-16.0) gm/dL Hct (34.0-46.0) % MCV (80.0-100.0) fL RDW (11.5-15.5) % Lymphocytes # (1.0-4.8) k/uL Macrocytosis Sodium 129 L (137-145) mmol/L Creatinine (0.52-1.04) mg/dL Glucose (74-99) mg/dL POC Glucose (mg/dL) 104 H 140 H (75-99) mg/dL Calcium (8.4-10.2) mg/dL 02/24/20 02/24/20 02/24/20 Range/Units 02:10 04:03 04:03 WBC 3.2 L (3.8-10.6) k/uL RBC 2.05 L (3.80-5.40) m/uL Hgb 7.1 L (11.4-16.0) gm/dL Hct 21.6 L (34.0-46.0) % MCV 105.2 H (80.0-100.0) fL RDW 24.8 H (11.5-15.5) % Lymphocytes # 0.6 L (1.0-4.8) k/uL Macrocytosis Marked A Sodium 131 L (137-145) mmol/L Creatinine 0.49 L (0.52-1.04) mg/dL Glucose 106 H (74-99) mg/dL POC Glucose (mg/dL) 126 H (75-99) mg/dL Calcium 7.5 L (8.4-10.2) mg/dL 02/24/20 Range/Units 11:52 WBC (3.8-10.6) k/uL RBC (3.80-5.40) m/uL Hgb (11.4-16.0) gm/dL Hct (34.0-46.0) % MCV (80.0-100.0) fL RDW (11.5-15.5) % Lymphocytes # (1.0-4.8) k/uL Macrocytosis Sodium (137-145) mmol/L Creatinine (0.52-1.04) mg/dL Glucose (74-99) mg/dL POC Glucose (mg/dL) 114 H (75-99) mg/dL Calcium (8.4-10.2) mg/dL Assessment and Plan Plan: 1 Severe triple-vessel coronary artery disease status post coronary artery bypass grafting 3 utilizing the AGRAWAL to the LAD, reverse saphenous vein grafts to the obtuse marginal artery and posterior descending artery. Postoperative day #4 2 Postop acute blood loss anemia, expected outcome of surgery, current hemoglobin 7.0 status post 3 units packed red blood cells this admission this is an expected outcome of surgery and the patient's hemoglobin is stable for now and hematology evaluation was done preoperatively. 3 Hyponatremia, suspect secondary to hypervolemia. Current sodium is improved as above 130 for now. 3 History of macrocytic anemia, status post bone marrow biopsy, results pending. The patient has chronic anemia and hemoglobin is stable for now. 4 History of polio 5 History of seizure disorder Plan Continue supportive care Sodium level is improved Continue using incentive spirometer Outpatient medications and resumed Bone marrow biopsy has been done and the results are still pending The patient will be considered for outpatient rehabilitation at time of discharge.
[2020-02-24] MEDS: FOLIC ACID 1 MG TAB PO SCH (13:10)
[2020-02-24] MEDS: THIAMINE 100 MG TAB PO SCH (13:10)
--- NOTE | 2020-02-24 13:43 | P.PN ---
Subjective From records: This is a very pleasant 79-year-old patient of Dr. Jacqueline Lorenzo. Patient is presented 4 days ago to [facility]. In the doctor's office she was found to have hemoglobin of 6.5 and sent to the hospital. Initial hemoglobin was 6.5 given 2 units of blood. Hemoglobin did come up to 9.2. Patient also was having chest pain at home. Ruled in for acute non-Q-wave [place]. Yesterday morning patient underwent a cardiac catheterization found to have left main and triple-vessel disease. Patient was transferred here for coronary bypass. Patient also was found to have bicytopenia and being worked up by hematology. Which is B12 folate was normal. Patient may need a bone marrow biopsy done the road. She is little bit tired. Currently no cardiac symptoms. 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 Underwent three-vessel bypass on February 19. Today-Up in a chair. Eating slightly better. Mild shortness of breath. Did walk a bit. Subjective 02/24/2020 This is a pleasant 79 years old female who presents for triple coronary artery disease with non-STEMI. She status post bypass surgery on 02/19. Today patient was seen in the ICU lying in chair comfortable not in distress. She denies chest pain or dyspnea or other symptoms. No abdominal pain, she is tolerating diet well. No problems regarding her bowel in urine habits. Patient is followed by several teams including vascular surgery primary team, pulmonary/critical care team, nephrology for hyponatremia and hematology/oncology for microcytic anemia. Vitals are stable. No more fevers since 02/21 Labs showing WBCs of 3.2K, hemoglobin 7.1, platelets is normal at 316K. Sodium improved to 131 today. Creatinine is normal Patient is currently on aspirin 81 mg of Plavix. He also on metoprolol 25 mg, phenobarbital and Dilantin and iron pills. Patient status post bone marrow biopsy under is also pending, hematology oncology of the case. Objective - Vital Signs Vital signs: Vital Signs Temp 98.6 F 02/24/20 09:14 Pulse 83 02/24/20 12:06 Resp 17 02/24/20 12:00 BP 111/51 02/24/20 10:00 Pulse Ox 98 02/24/20 11:16 Intake & Output 02/23/20 02/24/20 02/24/20 18:59 06:59 18:59 Intake Total 300 240 Output Total 1100 1110 Balance -800 -870 Weight 60.2 kg Intake: IV 300 Sodium Chloride 0.9% 1, 300 000 ml @ 75 mls/hr IV . [id number] [facility] Rx#:[id number] Oral 240 Output: Urine 1100 1110 Other: Voiding Method Bedside Commode Bedside Commode Bedside Commode # Voids 1 2 0 # Bowel Movements 1 1 ABP, PAP, CO, CI - Last Documented Arterial Blood Pressure 131/47 Pulmonary Artery Pressure 29/13 Cardiac Output 5.2 Cardiac Index 3.1 - Exam GENERAL: The patient is alert and oriented x3, not in any acute distress. Well developed, well nourished. HEENT: Pupils are round and equally reacting to light. EOMI. No scleral icterus. No conjunctival pallor. Normocephalic, atraumatic. No pharyngeal erythema. No thyromegaly. CARDIOVASCULAR: S1 and S2 present. No murmurs, rubs, or gallops. PULMONARY: Chest is clear to auscultation, no wheezing or crackles. ABDOMEN: Soft, nontender, nondistended, normoactive bowel sounds. No palpable organomegaly. MUSCULOSKELETAL: No joint swelling or deformity. EXTREMITIES: No cyanosis, clubbing, or pedal edema. NEUROLOGICAL: Gross neurological examination did not reveal any focal deficits. SKIN: No rashes. no petechiae. - Labs CBC & Chem 7: 02/24/20 04:03 02/24/20 04:03 Labs: Abnormal Lab Results - Last 24 Hours (Table) 02/23/20 02/23/20 02/23/20 Range/Units 16:36 17:07 20:02 WBC (3.8-10.6) k/uL RBC (3.80-5.40) m/uL Hgb (11.4-16.0) gm/dL Hct (34.0-46.0) % MCV (80.0-100.0) fL RDW (11.5-15.5) % Lymphocytes # (1.0-4.8) k/uL Macrocytosis Sodium 129 L (137-145) mmol/L Creatinine (0.52-1.04) mg/dL Glucose (74-99) mg/dL POC Glucose (mg/dL) 104 H 140 H (75-99) mg/dL Calcium (8.4-10.2) mg/dL 02/24/20 02/24/20 02/24/20 Range/Units 02:10 04:03 04:03 WBC 3.2 L (3.8-10.6) k/uL RBC 2.05 L (3.80-5.40) m/uL Hgb 7.1 L (11.4-16.0) gm/dL Hct 21.6 L (34.0-46.0) % MCV 105.2 H (80.0-100.0) fL RDW 24.8 H (11.5-15.5) % Lymphocytes # 0.6 L (1.0-4.8) k/uL Macrocytosis Marked A Sodium 131 L (137-145) mmol/L Creatinine 0.49 L (0.52-1.04) mg/dL Glucose 106 H (74-99) mg/dL POC Glucose (mg/dL) 126 H (75-99) mg/dL Calcium 7.5 L (8.4-10.2) mg/dL 02/24/20 Range/Units 11:52 WBC (3.8-10.6) k/uL RBC (3.80-5.40) m/uL Hgb (11.4-16.0) gm/dL Hct (34.0-46.0) % MCV (80.0-100.0) fL RDW (11.5-15.5) % Lymphocytes # (1.0-4.8) k/uL Macrocytosis Sodium (137-145) mmol/L Creatinine (0.52-1.04) mg/dL Glucose (74-99) mg/dL POC Glucose (mg/dL) 114 H (75-99) mg/dL Calcium (8.4-10.2) mg/dL Assessment and Plan Assessment: -Triple-vessel coronary bypass-February 19 -Acute non-Q-wave myocardial infarction POA -Bicytopenia with low leukocytosis and immobile been. Status post multiple blood transfusion. Status post bone marrow biopsy and results suspended -SIADH -Acute postop postprocedure blood loss anemia expected from surgery -Chronic epilepsy -Polio causing some weakness on the left of the body -Primary osteoarthritis affecting the hands and knees -Hypoosmolar hyponatremia from excessive fluid intake and decrease salt intake- slow to respond. Plan: This is a pleasant 79 years old female who presents with coronary artery disease status post bypass. Also she had hyponatremia secondary to SIADH, patient is followed closely by nephrology. Also patient followed by other consultants including pulmonary/critical care team, hematology/oncology and vascular surgery from primary team. Continue with aspirin and Plavix. Follow-up biopsy results, follow-up labs and vitals. Patient was instructed extensively to follow-up with hematology as an outpatient for her biopsy results and she agrees. Labs and medication were reviewed.. Continue same treatment. Continue with sym ptomatic treatment. Resume home medication. Monitor lytes and vitals. DVT and GI prophylaxis. Further recommendations of the clinical course of the patient DVT prophylaxis and pain management as per surgery primary team Thank you for consulting us
--- NOTE | 2020-02-24 16:59 | P.PN ---
Subjective Progress Note Date: 02/24/20 Principal diagnosis: CAD and Pancytopenia CBC stable today hemoglobin 7.1 Objective - Vital Signs Vital signs: Vital Signs Temp 98.6 F 02/24/20 09:14 Pulse 84 02/24/20 16:40 Resp 16 02/24/20 16:40 BP 111/51 02/24/20 10:00 Pulse Ox 98 02/24/20 11:16 Intake & Output 02/23/20 02/24/20 02/24/20 18:59 06:59 18:59 Intake Total 300 240 Output Total 1100 1110 150 Balance -800 -870 -150 Weight 60.2 kg Intake: IV 300 Sodium Chloride 0.9% 1, 300 000 ml @ 75 mls/hr IV . [id number] JAVON Rx#:[id number] Oral 240 Output: Urine 1100 1110 150 Other: Voiding Method Bedside Commode Bedside Commode Bedside Commode # Voids 1 2 1 # Bowel Movements 1 1 ABP, PAP, CO, CI - Last Documented Arterial Blood Pressure 131/47 Pulmonary Artery Pressure 29/13 Cardiac Output 5.2 Cardiac Index 3.1 - Exam General appearance: cooperative, no acute distress, thin Eyes: anicteric sclerae, EOMI ENT: hearing grossly normal Well-developed, thin built, in no acute distress, respirations even and unlabored, abdominal distention, swelling in the legs Lungs: Diminished even Heart Irr reg ABd: SOft, ND Ext: Generalized Awake - Labs CBC & Chem 7: 02/24/20 04:03 02/24/20 04:03 Labs: Abnormal Lab Results - Last 24 Hours (Table) 02/23/20 02/23/20 02/24/20 Range/Units 17:07 20:02 02:10 WBC (3.8-10.6) k/uL RBC (3.80-5.40) m/uL Hgb (11.4-16.0) gm/dL Hct (34.0-46.0) % MCV (80.0-100.0) fL RDW (11.5-15.5) % Lymphocytes # (1.0-4.8) k/uL Macrocytosis Sodium 129 L (137-145) mmol/L Creatinine (0.52-1.04) mg/dL Glucose (74-99) mg/dL POC Glucose (mg/dL) 140 H 126 H (75-99) mg/dL Calcium (8.4-10.2) mg/dL 02/24/20 02/24/20 02/24/20 Range/Units 04:03 04:03 11:52 WBC 3.2 L (3.8-10.6) k/uL RBC 2.05 L (3.80-5.40) m/uL Hgb 7.1 L (11.4-16.0) gm/dL Hct 21.6 L (34.0-46.0) % MCV 105.2 H (80.0-100.0) fL RDW 24.8 H (11.5-15.5) % Lymphocytes # 0.6 L (1.0-4.8) k/uL Macrocytosis Marked A Sodium 131 L (137-145) mmol/L Creatinine 0.49 L (0.52-1.04) mg/dL Glucose 106 H (74-99) mg/dL POC Glucose (mg/dL) 114 H (75-99) mg/dL Calcium 7.5 L (8.4-10.2) mg/dL Assessment and Plan Plan: Assessment and Plan: Macrocytic anemia - Pt was worked up extensively at [facility] in the last 2 weeks. - Transfusions as needed for hemoglobin less than 7 or if patient is symptomatic. G-CSF is added post op id WBC below 1.5 or ANC less than 0.8 - CBC daily. - Status post BM biopsy during CTS - Await Path - No grwth factor needed yet To complete workup for patient's bicytopenia Dr. Gastelum obtained specimen of Bone marrow from sternum. For the bone marrow please order Histology, flow cytometry, AML and MVS FISH study. 2. CAD: - Status post CABG x3 on 02/20/[address] Gastelum - Also obtained Bone Marrow Specimen from Sternum during procedure - Continue care in ICU and per CTS Plan: - Await Bone Marrow Results including Histology, Flow Cytometry, AML and MDS FIsh Studies. - Supportive Transfusions PRN, not needed today physician attest: I have completed full history and physical and agree with above dictation, dictated as a scribe
[2020-02-24 17:00] LABS: Glucose,Whole Blood 121 mg/dL (75-99)
[2020-02-24 21:03] LABS: Glucose,Whole Blood 136 mg/dL (75-99)
[2020-02-24] MEDS: MELATONIN 3 MG TABLET PO SCH (21:57)
[2020-02-24] MEDS: SENNOSIDES-DOCUSATE SODIUM 1 EACH TAB PO SCH (21:58)
[2020-02-24] MEDS: MONTELUKAST 10 MG TAB PO SCH (21:58)
[2020-02-25 02:13] LABS: Glucose,Whole Blood 121 mg/dL (75-99)
[2020-02-25 06:14] LABS: Glucose,Whole Blood 113 mg/dL (75-99)
[2020-02-25] MEDS: INSULIN ASPART (NovoLOG) 100 UNIT/ML VIAL SQ SCH ×2 (06:28→13:16)
[2020-02-25] MEDS: FERROUS SULFATE 325 MG TAB PO SCH (07:02)
[2020-02-25] MEDS: PANTOPRAZOLE 40 MG TABLET PO SCH (07:02)
[2020-02-25] MEDS: ASCORBIC ACID 500 MG TAB PO SCH (07:02)
[2020-02-25 07:33] LABS: African American GFR (CKD) >90 (>60 ml/min/1.73 sqM); Anion Gap 3 mmol/L; Blood Urea Nitrogen 16 mg/dL (7-17); Calcium 7.6 mg/dL (8.4-10.2); Carbon Dioxide 27 mmol/L (22-30); Chloride 104 mmol/L (98-107); Glucose 100 mg/dL (74-99); Non-African American GFR(CKD) >90 (>60 ml/min/1.73 sqM); Sodium 134 mmol/L (137-145)
[2020-02-25 07:37] LABS: Anisocytosis Marked; Basophils % (A) 0 %; Eosinophils # (A) 0.1 k/uL (0-0.7); Eosinophils % (A) 4 %; HCT 23.8 % (34.0-46.0); HGB 7.8 gm/dL (11.4-16.0); Hypochromasia Slight; Lymphocytes # (A) 0.6 k/uL (1.0-4.8); Lymphocytes % (A) 20 %; MCH 35.4 pg (25.0-35.0); MCHC 32.7 g/dL (31.0-37.0); MCV 108.3 fL (80.0-100.0); Macrocytosis Marked; Mean Platelet Volume 8.8; Monocytes # (A) 0.1 k/uL (0-1.0); Monocytes % (A) 4 %; Neutrophils # (A) 2.1 k/uL (1.3-7.7); Neutrophils % (A) 69 %; Platelet Count 433 k/uL (150-450); RBC 2.19 m/uL (3.80-5.40); RDW 24.1 % (11.5-15.5)
--- NOTE | 2020-02-25 07:51 | P.PN ---
Subjective Progress Note Date: 02/25/20 Principal diagnosis: Severe calcific coronary artery disease with left main disease, non-STEMI this admission. Previous medical history of macrocytic anemia, polio, seizures, pneu monia, and family history of premature coronary artery disease. POD #5 off-pump coronary artery bypass graft 3 with left internal mammary artery to the left anterior descending artery, reverse saphenous vein graft to the second obtuse marginal artery and posterior descending coronary artery with endovascular vein harvest of the left greater saphenous vein from mid calf to the groin, left atrial appendage exclusion with 35 mm AtriCure clip and aspirate and biopsy of the sternal bone marrow. Postoperative acute blood loss anemia, expected given patient's preoperative history of macrocytic anemia Postoperative hyponatremia, unexpected The patient is currently sitting up in the recliner on the cardiac stepdown unit in no acute distress. She denies pain, denies shortness of breath. Currently in normal sinus rhythm and hemodynamically stable. Hemoglobin 7.1 yesterday, 7.8 this AM. Sodium 131 yesterday, fluid restrictions of 1500 mL/24 hours continues, sodium increased to 134 this morning. Patient states she is feeling a little better everyday. Ambulate in the hallway 4 times yesterday and received shower. Objective - Vital Signs Vital signs: Vital Signs Temp 97.6 F 02/25/20 04:24 Pulse 86 02/25/20 04:24 Resp 18 02/25/20 04:24 BP 116/62 02/25/20 04:24 Pulse Ox 98 02/25/20 04:24 Intake & Output 02/24/20 02/25/20 02/25/20 18:59 06:59 18:59 Intake Total 540 Output Total 450 Balance -450 540 Weight 62.5 kg Intake: Oral 540 Output: Urine 450 Other: Voiding Method Bedside Commode Bedside Commode # Voids 1 # Bowel Movements 1 ABP, PAP, CO, CI - Last Documented Arterial Blood Pressure 131/47 Pulmonary Artery Pressure 29/13 Cardiac Output 5.2 Cardiac Index 3.1 - Constitutional General appearance: Present: cooperative, no acute distress, thin - Respiratory Details: Lungs sounds diminished bilaterally. Respirations even, nonlabored. Currently on room air with oxygen saturation 98%. Only able to achieve 500 mL on her incentive spirometry. Strong cough. - Cardiovascular Details: S1, S2 present. Regular rate and rhythm, sinus rhythm on telemetry with heart rate in the 70-80s. Sternum stable. Palpable peripheral pulses bilaterally. No edema present. No calf pain or tenderness noted. Heart hugger in place with patient demonstrating appropriate use. Antiembolism stockings, SCDs present. - Gastrointestinal Gastrointestinal Comment(s): Abdomen soft, nontender, nondistended. Active bowel sounds present 4 quadrants. Tolerating diet. Positive bowel movement. - Genitourinary Genitourinary Comment(s): Continues to void clear, yellow urine - Integumentary Integumentary Comment(s): Skin is warm and dry with evidence of good perfusion. Anterior chest incision well approximated and covered with dry intact dressing. Left lower extremities EVH site well approximated. - Neurologic Neurologic: Present: CNII-XII intact - Musculoskeletal Musculoskeletal: Present: gait normal, strength equal bilaterally - Psychiatric Psychiatric: Present: A&O x's 3, appropriate affect, intact judgment & insight - Allied health notes Allied health notes reviewed: nursing - Labs CBC & Chem 7: 02/25/20 07:05 02/25/20 07:05 Labs: Abnormal Lab Results - Last 24 Hours (Table) 02/24/20 02/24/20 02/24/20 Range/Units 11:52 16:59 21:01 WBC (3.8-10.6) k/uL RBC (3.80-5.40) m/uL Hgb (11.4-16.0) gm/dL Hct (34.0-46.0) % MCV (80.0-100.0) fL MCH (25.0-35.0) pg RDW (11.5-15.5) % Lymphocytes # (1.0-4.8) k/uL Macrocytosis Sodium (137-145) mmol/L Glucose (74-99) mg/dL POC Glucose (mg/dL) 114 H 121 H 136 H (75-99) mg/dL Calcium (8.4-10.2) mg/dL 02/25/20 02/25/20 02/25/20 Range/Units 02:10 06:12 07:05 WBC 3.0 L (3.8-10.6) k/uL RBC 2.19 L (3.80-5.40) m/uL Hgb 7.8 L (11.4-16.0) gm/dL Hct 23.8 L (34.0-46.0) % MCV 108.3 H (80.0-100.0) fL MCH 35.4 H (25.0-35.0) pg RDW 24.1 H (11.5-15.5) % Lymphocytes # 0.6 L (1.0-4.8) k/uL Macrocytosis Marked A Sodium (137-145) mmol/L Glucose (74-99) mg/dL POC Glucose (mg/dL) 121 H 113 H (75-99) mg/dL Calcium (8.4-10.2) mg/dL 02/25/20 Range/Units 07:05 WBC (3.8-10.6) k/uL RBC (3.80-5.40) m/uL Hgb (11.4-16.0) gm/dL Hct (34.0-46.0) % MCV (80.0-100.0) fL MCH (25.0-35.0) pg RDW (11.5-15.5) % Lymphocytes # (1.0-4.8) k/uL Macrocytosis Sodium 134 L (137-145) mmol/L Glucose 100 H (74-99) mg/dL POC Glucose (mg/dL) (75-99) mg/dL Calcium 7.6 L (8.4-10.2) mg/dL - Imaging and Cardiology Chest x-ray: image reviewed Assessment and Plan Assessment: 1. Severe calcific triple-vessel coronary artery disease with left main disease, status post three-vessel CABG 2. Macrocytic anemia unknown origin, status post bone marrow biopsy of the sternum 3. Seizure disorder, currently treated with Dilantin and phenobarb 4. History of polio 5. History of pneumonia, last episode greater than 6 months ago 6. Family history of premature coronary artery disease 7. Lifelong nonsmoker 8. Postoperative acute blood loss anemia, expected 9. Postoperative hyponatremia, unexpected, resolving Plan: 1. Continue aspirin, statin, beta manuel therapy. 2. Encourage incentive spirometry use 10 times every hour while awake 3. Increase activity, ambulate as tolerated. PT/OT/cardiac rehab following 4. Will monitor daily labs and x-rays. Electrolyte replacement per protocol. 5. GI/DVT prophylaxis 6. Pain controlled current medication regimen. 7. Insulin management per primary care service. 8. Continue phenobarbital and Dilantin for seizure control 9. Bone marrow biopsy results pending. Hematology following. 10. Nephrology following for hyponatremia. 11. Discharge planning in progress. Anticipate discharge to inpatient rehab today Time with Patient: Greater than 30
--- NOTE | 2020-02-25 08:03 | P.DS ---
Providers Date of admission: 02/18/20 17:27 Expected date of discharge: 02/25/20 Attending physician: Robel Gastelum Consults: 02/19/20 06:46 Consult Physician Urgent Consulting Provider: Robel Gastelum Consult Reason/Comments: triple vessel disease surgical consult Do you want consulting provider notified?: Yes 02/19/20 07:15 Consult Physician Routine Consulting Provider: Rachelle Merrill Consult Reason/Comments: nstemi Do you want consulting provider notified?: Already Contacted 02/19/20 07:20 Consult Physician Routine Consulting Provider: Mansoor Velazco Consult Reason/Comments: preop cabg Do you want consulting provider notified?: Yes Consult to Anesthesia Routine Consulting Provider: Anesthesia,Services Consult Reason/Comments: Cardiac Surgery Pre-Op 02/19/20 08:39 Consult Physician Urgent Consulting Provider: Jean-Paul Jara Consult Reason/Comments: anemia workup; recs for open heart surgery Do you want consulting provider notified?: Yes 02/19/20 16:07 Consult Physician Routine Consulting Provider: Rachelle Merrill Consult Reason/Comments: NSTEMI Do you want consulting provider notified?: Already Contacted 02/20/20 12:14 Consult Physician Routine Consulting Provider: Ankur Velázquez Consult Reason/Comments: med mgmt Do you want consulting provider notified?: Already Contacted 02/22/20 08:06 Consult Physician Routine Consulting Provider: Leana Escobar Consult Reason/Comments: hyponatremia Do you want consulting provider notified?: Yes 02/23/20 07:47 Consult Physician Routine Consulting Provider: Benjamin Hooks Consult Reason/Comments: IPR Do you want consulting provider notified?: Yes Primary care physician: Myron Smith DO Hospital Course: FINAL DIAGNOSIS: 1. Severe calcific coronary artery disease with left main disease, non-STEMI this admission 2. History of macrocytic anemia 3. History of polio 4. History of seizures 5. History of pneumonia 6. Family history of premature coronary artery disease 7. Postoperative acute blood loss anemia, expected 8. Postoperative hyponatremia, SIADH, unexpected PRINCIPAL PROCEDURE: 1. Off-pump coronary artery bypass graft 3 with left internal mammary artery to the left anterior descending artery, reverse saphenous vein graft to second obtuse marginal artery and posterior descending coronary artery 2. Endovascular vein harvest of the left greater saphenous vein from the mid calf to the groin 3. Left atrial appendage exclusion with 35 mm AtriCure clip 4. Aspirate and biopsy of the sternal bone marrow HISTORY OF PRESENT ILLNESS: This is a 79-year-old active female who follows on an outpatient basis with Dr. Jacqueline Lorenzo. Apparently in November 2019 was experiencing shortness of breath and was unable to take a deep breath, she pr esented to [facility] for evaluation and treatment and was seen and worked up by primary and pulmonology and was discharged to home. She had repeat lab work and was instructed to go to the emergency room by Dr. VLAD Crooks, however she refused to go as she "had things to do". Last week she was again instructed by Dr. VLAD Crooks to go to the emergency room for low hemoglobin and she presented to [facility] for evaluation and treatment. While there she did receive 2 units packed red blood cells and consultations were placed to GI and hematology for anemia evaluation. She was stabilized and was told she could continue workup on an outpatient basis. Her troponins were elevated which was thought to be mismatch due to low hemoglobin, however she did undergo heart catheterization demonstrating a distal left main 70-80%, and severely calcified triple-vessel coronary artery disease with proximal LAD stenosis 70-80%, mid LAD stenosis subtotally occluded 99%, first obtuse marginal stenosis 90%, distal RCA stenosis 70%, and PDA stenosis 70-80%. In addition she underwent transthoracic echocardiogram with borderline left ventricular systolic dysfunction with EF 45%, and no significant valvular pathology. She was transferred to [facility] for cardiothoracic surgery evaluation. Upon further questioning, the patient does state that in November 2019 she did have some chest pressure with radiation to right arm in addition to her shortness of breath. It was intermittent and lasted through November and December, but went away after antibioti nebulizer treatments. She states that she was completely asymptomatic with admission to this hospitalization. Consultation was placed to Dr. Gastelum from cardiothoracic surgery. She was recommended to undergo coronary artery bypass surgery. The usual perioperative course was discussed in detail with the patient and her family, all risks and benefits were explained, all questions were answered, and consent was obtained to proceed with surgery. We did have consultation with hematology for recommendations on timing of surgery, they felt she was safe to take him to surgery, and requested a bone marrow biopsy from the patient's sternum. The patient was kept inpatient due to the nature of her disease process. HOSPITAL COURSE: The patient was brought to the preoperative area on 02/20/2020, prepared in the usual fashion, and subsequently taken to the operating room where Dr. Gastelum performed an off-pump three-vessel CABG along with sternal bone marrow biopsy. Upon completion of surgery the patient was transferred to the cardiovascular intensive care unit where she was recovered, monitored hemodynamically, and where she progressed to cardiac rehabilitation phase 1. She was extubated, all lines, tubes, and drips were discontinued when appropriate, and transfer orders were placed for 3 S. cardiac stepdown unit. She did have continued anemia which she was being worked up for by hematology, and she did receive blood transfusion prior to surgery and postoperatively. In addition, she developed a postoperative hyponatremia, was seen by nephrology, was treated with fluid restrictions and Tolvaptan, and her hyponatremia was resolving. Her oxygen was titrated down, she continued to work with physical and occupational therapy, she was tolerating oral diet, her pain was controlled, and she was ready to be discharged to [facility] inpatient rehab on postoperative day #5. She received written and verbal instruction regarding her medications, activity restrictions, signs and symptoms requiring physician notification, and follow-up appointments. COMPLICATIONS: The patient experienced postoperative acute blood loss anemia which was expected as she has a history of macrocytic anemia, as well as hyponatremia, both treated accordingly. Patient Condition at Discharge: Stable Plan - Discharge Summary New Discharge Prescriptions: New Aspirin 81 mg PO DAILY chew Folic Acid 1 mg PO DAILY@1200 tab Heparin Sodium,Porcine [Heparin Sodium] 5,000 unit SQ Q8HR vial Ferrous Sulfate [Iron (65 MG Elemental)] 325 mg PO BID-W/MEALS tab Atorvastatin [Lipitor] 40 mg PO DAILY tab Metoprolol Tartrate [Lopressor] 25 mg PO BID tab Melatonin 3 mg PO HS tablet Magnesium Hydroxide [Milk of Magnesia Concentrate] 2,400 mg PO BID PRN ml PRN Reason: Constipation guaiFENesin [Mucinex] 600 mg PO Q12HR PRN tablet.er PRN Reason: Cough Clopidogrel [Plavix] 75 mg PO DAILY tab Pantoprazole [Protonix] 40 mg PO AC-BRKFST tablet. Sennosides-Docusate Sodium [Senokot-S] 2 each PO HS tab Acetaminophen Tab [Tylenol] 1,000 mg PO Q6HR PRN tab PRN Reason: Fever And/ Or Pain Thiamine [Vitamin B-1] 100 mg PO DAILY@1200 tab Ascorbic Acid [Vitamin C] 500 mg PO BID-W/MEALS tab Continue Phenytoin Sodium Extended [Dilantin] 100 mg PO TID Cholecalciferol [Vitamin D3 (25 Mcg = 1000 Iu)] 1,000 unit PO DAILY Beclomethasone Dip 80 Mcg/Puff [Qvar 80 mcg] 2 puff INHALATION RT-BID PHENobarbital 32.4 mg PO BID Montelukast Sodium [Singulair] 10 mg PO HS Ipratropium-Albuterol Nebulize [Duoneb 0.5 mg-3 mg/3 ml Soln] 3 ml INHALATION RT-QID PRN PRN Reason: Shortness Of Breath Fexofenadine HCl [Jessica Allergy] 180 mg PO DAILY PRN PRN Reason: Allergy Symptoms Alendronate Sodium [Fosamax] 70 mg PO FR Albuterol Sulfate [Albuterol Sulfate Hfa] 2 puff PO RT-Q4H PRN PRN Reason: Shortness Of Breath Discontinued Aspirin EC [Ecotrin] 325 mg PO DAILY Discharge Medication List Albuterol Sulfate [Albuterol Sulfate Hfa] 2 puff PO RT-Q4H PRN 02/18/20 [His tory] Alendronate Sodium [Fosamax] 70 mg PO FR 02/18/20 [History] Beclomethasone Dip 80 Mcg/Puff [Qvar 80 mcg] 2 puff INHALATION RT-BID 02/18/20 [History] Cholecalciferol [Vitamin D3 (25 Mcg = 1000 Iu)] 1,000 unit PO DAILY 02/18/20 [History] Fexofenadine HCl [Jessica Allergy] 180 mg PO DAILY PRN 02/18/20 [History] Ipratropium-Albuterol Nebulize [Duoneb 0.5 mg-3 mg/3 ml Soln] 3 ml INHALATION RT-QID PRN 02/18/20 [History] Montelukast Sodium [Singulair] 10 mg PO HS 02/18/20 [History] PHENobarbital 32.4 mg PO BID 02/18/20 [History] Phenytoin Sodium Extended [Dilantin] 100 mg PO TID 02/18/20 [History] Acetaminophen Tab [Tylenol] 1,000 mg PO Q6HR PRN tab 02/24/20 [Rx] Ascorbic Acid [Vitamin C] 500 mg PO BID-W/MEALS tab 02/24/20 [Rx] Aspirin 81 mg PO DAILY chew 02/24/20 [Rx] Atorvastatin [Lipitor] 40 mg PO DAILY tab 02/24/20 [Rx] Clopidogrel [Plavix] 75 mg PO DAILY tab 02/24/20 [Rx] Ferrous Sulfate [Iron (65 MG Elemental)] 325 mg PO BID-W/MEALS tab 02/24/20 [Rx] Folic Acid 1 mg PO DAILY@1200 tab 02/24/20 [Rx] Heparin Sodium,Porcine [Heparin Sodium] 5,000 unit SQ Q8HR vial 02/24/20 [Rx] Magnesium Hydroxide [Milk of Magnesia Concentrate] 2,400 mg PO BID PRN ml 02/24/20 [Rx] Melatonin 3 mg PO HS tablet 02/24/20 [Rx] Metoprolol Tartrate [Lopressor] 25 mg PO BID tab 02/24/20 [Rx] Pantoprazole [Protonix] 40 mg PO AC-BRKFST tablet.dr 02/24/20 [Rx] Sennosides-Docusate Sodium [Senokot-S] 2 each PO HS tab 02/24/20 [Rx] Thiamine [Vitamin B-1] 100 mg PO DAILY@1200 tab 02/24/20 [Rx] guaiFENesin [Mucinex] 600 mg PO Q12HR PRN tablet.er 02/24/20 [Rx] Follow up Appointment(s)/Referral(s): Jean-Paul Jara MD [STAFF PHYSICIAN] - 10 Days (Follow-up bone marrow biopsy results) Juan Diego Crooks MD [STAFF PHYSICIAN] - 1 Week (Please call for appointment upon discharge from [facility]) Rehab [facility],Cardiac [NON-STAFF] - 4 Weeks (You will receive a phone call 4- 6 weeks after surgery for evaluation for cardiac rehab) Robel Gastelum MD [STAFF PHYSICIAN] - 03/19/20 9:45 am [facility], [NON-STAFF] - Vahe Lorenzo DO [STAFF PHYSICIAN] - 1 Week (Please call for appointment upon discharge from [facility]) Logan Crooks MD [STAFF PHYSICIAN] - 1 Week (Please call for appointment upon discharge from [facility]) Activity/Diet/Wound Care/Special Instructions: CONSULTS AT [facility] INPATIENT REHAB: 1. Dr. Crooks for cardiology 2. Dr. Jara for hematology 3. Dr. Lucas for nephrology ABSOLUTELY NO NARCOTICS UNLESS CLEARED BY CARDIOTHORACIC SURGERY. (Patient's last narcotic dose was 02/20) DISCHARGE INSTRUCTIONS: 1. No driving for 4 weeks, or until physician gives their ok. 2. The patient should sleep in their own bed, no medical bed needed. 3. Stairs are not an issue. If the bedroom is upstairs, it is advised that the patient go up at night and down in the morning for the first week. Go slowly, using handrail and take 1 step at a time. 4. MABLE hose are to be worn for 30 days or until physician discontinues. 5. Heart hugger is to be worn 100% of the time until physician discontinues.(except when showering) 6. No lifting, pushing, or pulling more than 10 pounds for 12 weeks. The physician will advise of any restriction changes. 7. The patient is expected to continue the prescribed walking program. 8. Continue pain control per as needed orders. 9. Continue with incentive spirometry and splinting/heart hugger until otherwise directed by the physician. 10. Must shower daily using liquid antibacterial soap and a separate white washcloth for each individual incision. 11. Routine sternal incision care. No powders, lotions, ointments on incisions. No dressings are necessary on incisions unless they are draining. Dermabond tape is to remain on sternal incision until surgeon follow-up. 12. Please call surgeon/FLATWORK IRONER for temp greater than 101 F or purulent drainage from incisions. 13. All prescriptions given by surgeon for 30 days. Refills need to be filled through head doffer/primary care physician. 14. A Red armband has been placed on the patient. It should be worn for 30 days post surgery and will be removed by the cardiac surgeons. If an ER visit is necessary, please make sure the number on the Red armband is called. 15. You have been referred to and are expected to begin Cardiac Rehab in approximately 4-6 weeks. LABORATORY: CBC, CMP TO BE DRAWN PER [facility] PROTOCOL, (RAN STAT) FAX RESULTS TO [phone] HOME HEALTH SERVICES TO PROVIDE: RN SKILLED HOME CARE SERVICES FOR POST-OP SURGICAL PATIENTS WITH THE FOLLOWING: Coronary Artery Bypass Surgery (CABG), Mitral Valve Replacement/Repair ( MVR), Aortic Valve Replacement/Repair (AVR) RN TO CONTINUE EDUCATION FROM ``ROAD TO A HEALTH HEART PATIENT EDUCATION MANUAL (GIVEN TO PATIENT IN THE HOSPITAL) MEDICATION RECONCILIATION WITH EDUCATION NEEDED ON FIRST HOME VISIT EMPHASIZE IMPORTANCE OF WEARING BREAST SUPPORT/HEART HUGGER ENCOURAGE USE OF INCENTIVE SPIROMETER 10 X EVERY HOUR WHILE AWAKE ENCOURAGE UTILIZATION OF LOWER EXTREMITY COMPRESSION STOCKINGS/MABLE HOSE and ELEVATE LEGS ABOVE LEVEL OF HEART WHILE AT REST. ENCOURAGE AMBULATION 3-5x/day INCREASING TOLERATES, WHILE AVOIDING EXTREMES IN TEMPERATURE FREQUENCY: RN TO OPEN THE PATIENT WITHIN 24 HOURS OF DISCHARGE FROM INPATIENT REHAB WITH TELEHEALTH INSTALLED AT [facility], RN TO VISIT 2-3 X A WEEK FOR 4 WEEKS ESTABLISHED BY PATIENT NEEDS. TELEHEALTH PARAMETERS: WEIGHT: NOTIFY MD OF WEIGHT GAIN OF 2 LBS IN 24 HOURS OR 5 LBS IN ONE WEEK HR: NOTIFY MD OF HR <55 BPM OR HR>100 BPM BP: NOTIFY MD IF BP <90/55 OR BP>140/100 O2 SAT: NOTIFY MD IF PO2<93% ON ROOM AIR SEND TELEHEALTH REPORT TO EQUALIZING SAW OPERATOR AND CARDIOVASCULAR SURGEON THE FIRST WEEK OF CARE AND THEN BI-WEEKLY. PLEASE ADDITIONALLY COMMUNICATE ANY ABNORMALS AND NEW FINDINGS TO THE SURGEONS OFFICE. For any questions or concerns please call tower director Jeanine @ or Jose De Jesus @ Discharge Disposition: DC/TRNS INTERMEDIATE CARE FAC
[2020-02-25] MEDS: PHENobarbital 32.4 MG TAB PO SCH (08:45)
[2020-02-25] MEDS: METOPROLOL TARTRATE 25 MG TAB PO SCH (08:45)
[2020-02-25] MEDS: CLOPIDOGREL 75 MG TAB PO SCH (08:45)
[2020-02-25] MEDS: PHENYTOIN SODIUM EXTENDED 100 MG CAP PO SCH (08:45)
[2020-02-25] MEDS: ATORVASTATIN 40 MG TAB PO SCH (08:45)
[2020-02-25] MEDS: ASPIRIN 81 MG PO SCH (08:45)
[2020-02-25] MEDS: HEPARIN SODIUM,PORCINE 5,000 UNIT/ML 1 ML VIAL SQ SCH (08:47)
--- NOTE | 2020-02-25 08:52 | XR ---
EXAMINATION TYPE: XR chest 2V DATE OF EXAM: 02/25/2020 COMPARISON: 02/24/2020 INDICATION: Post cardiac surgery TECHNIQUE: Frontal and lateral views of the chest are obtained. FINDINGS: The heart size is normal. The pulmonary vasculature is normal. Small bilateral pleural effusions are present. Sternotomy wires are present from prior cardiac surger y. There appears to be hyperinflation present. Previous right apical pneumothorax is not identified. There is some free air in the left shoulder region. IMPRESSION: 1. Small bilateral pleural effusions with mild bibasilar infiltrates, worsening from comparison. 2. COPD
[2020-02-25] MEDS: FLUTICASONE 110 MCG INHALER INHALATION SCH (09:15)
[2020-02-25] MEDS: IPRATROPIUM-ALBUTEROL 3 ML NEB INHALATION SCH ×2 (09:15→11:56)
[2020-02-25 11:26] VITALS: BP 117/57; PULSE 89; RESP 20; TEMP 98.3
--- NOTE | 2020-02-25 11:28 | P.PN ---
Subjective Patient is seen in follow-up for hyponatremia. Sodium level 134 this morning. She received a dose of Samsca on February 22. Oral intake is improving. No vomiting or diarrhea. No chest pain or shortness of breath. Potentially going to rehab today. Vital signs are stable. General: The patient appeared well nourished and normally developed. HEENT: Head exam is unremarkable. Neck is without jugular venous distension. LUNGS: Lungs are clear to auscultation and percussion. Breath sounds decreased. HEART: Rate and Rhythm are regular. ABDOMEN: Soft, nontender. EXTREMITITES: No clubbing, cyanosis, or edema. Objective - Vital Signs Vital signs: Vital Signs Temp 98.3 F 02/25/20 08:00 Pulse 80 02/25/20 09:25 Resp 20 02/25/20 08:00 BP 117/57 02/25/20 08:00 Pulse Ox 97 02/25/20 08:00 Intake & Output 02/24/20 02/25/20 02/25/20 18:59 06:59 18:59 Intake Total 540 600 Output Total 450 Balance -450 540 600 Weight 62.5 kg Intake: Oral 540 600 Output: Urine 450 Other: Voiding Method Bedside Commode Bedside Commode # Voids 1 # Bowel Movements 1 1 ABP, PAP, CO, CI - Last Documented Arterial Blood Pressure 131/47 Pulmonary Artery Pressure 29/13 Cardiac Output 5.2 Cardiac Index 3.1 - Labs CBC & Chem 7: 02/25/20 07:05 02/25/20 07:05 Labs: Abnormal Lab Results - Last 24 Hours (Table) 02/24/20 02/24/20 02/24/20 Range/Units 11:52 16:59 21:01 WBC (3.8-10.6) k/uL RBC (3.80-5.40) m/uL Hgb (11.4-16.0) gm/dL Hct (34.0-46.0) % MCV (80.0-100.0) fL MCH (25.0-35.0) pg RDW (11.5-15.5) % Lymphocytes # (1.0-4.8) k/uL Macrocytosis Sodium (137-145) mmol/L Glucose (74-99) mg/dL POC Glucose (mg/dL) 114 H 121 H 136 H (75-99) mg/dL Calcium (8.4-10.2) mg/dL 02/25/20 02/25/20 02/25/20 Range/Units 02:10 06:12 07:05 WBC 3.0 L (3.8-10.6) k/uL RBC 2.19 L (3.80-5.40) m/uL Hgb 7.8 L (11.4-16.0) gm/dL Hct 23.8 L (34.0-46.0) % MCV 108.3 H (80.0-100.0) fL MCH 35.4 H (25.0-35.0) pg RDW 24.1 H (11.5-15.5) % Lymphocytes # 0.6 L (1.0-4.8) k/uL Macrocytosis Marked A Sodium (137-145) mmol/L Glucose (74-99) mg/dL POC Glucose (mg/dL) 121 H 113 H (75-99) mg/dL Calcium (8.4-10.2) mg/dL 02/25/20 Range/Units 07:05 WBC (3.8-10.6) k/uL RBC (3.80-5.40) m/uL Hgb (11.4-16.0) gm/dL Hct (34.0-46.0) % MCV (80.0-100.0) fL MCH (25.0-35.0) pg RDW (11.5-15.5) % Lymphocytes # (1.0-4.8) k/uL Macrocytosis Sodium 134 L (137-145) mmol/L Glucose 100 H (74-99) mg/dL POC Glucose (mg/dL) (75-99) mg/dL Calcium 7.6 L (8.4-10.2) mg/dL Assessment and Plan Plan: Assessment: 1. Acute hyponatremia. This is secondary to SIADH from pain and nausea as well as poor solute intake and use of nonsteroidals. Status post 1 dose of Samsca. Sodium level 134 today. No significant improvement with IV fluids. TSH normal. Urine sodium 85 and urine osmolality 299. 2. Non-ST with his myocardial infarction status post CABG February 19. 3. Acute blood loss anemia s/p blood transfusion. Plan: Encourage oral intake, particularly protein. Maintain fluid restriction. Repeat electrolytes in the morning. Stable for discharge to rehab from nephrology standpoint.
[2020-02-25 12:17] LABS: Glucose,Whole Blood 109 mg/dL (75-99)
--- NOTE | 2020-02-25 12:32 | PN ---
PROGRESS NOTE Mrs. Petit underwent aortocoronary bypass surgery. She is doing much better. She is ambulating without any significant symptoms. She is going to go to cardiac rehab to further recover. No chest pain. Breathing has improved. Vitals are stable. JVD is not evident. S1-S2 heard normally, short systolic murmur noted. Lungs revealed decent air entry. Abdomen and lower extremity exam otherwise is unchanged. Plan is to continue current medications, incentive spirometry, pulmonary toilet and possible discharge to rehab facility today. MMODL / IJN: [id number] /
[2020-02-25] MEDS: FOLIC ACID 1 MG TAB PO SCH (13:21)
[2020-02-25] MEDS: THIAMINE 100 MG TAB PO SCH (13:21)
--- NOTE | 2020-02-25 13:35 | P.PN ---
Subjective From records: This is a very pleasant 79-year-old patient of Dr. Jacqueline Lorenzo. Patient is presented 4 days ago to [facility]. In the doctor's office she was found to have hemoglobin of 6.5 and sent to the hospital. Initial hemoglobin was 6.5 given 2 units of blood. Hemoglobin did come up to 9.2. Patient also was having chest pain at home. Ruled in for acute non-Q-wave CA. Yesterday morning patient underwent a cardiac catheterization found to have left main and triple-vessel disease. Patient was transferred here for coronary bypass. Patient also was found to have bicytopenia and being worked up by hematology. Which is B12 folate was normal. Patient may need a bone marrow biopsy done the road. She is little bit tired. Currently no cardiac symptoms. 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 Underwent three-vessel bypass on February 19. Today-Up in a chair. Eating slightly better. Mild shortness of breath. Did walk a bit. Subjective 02/24/2020 This is a pleasant 79 years old female who presents for triple coronary artery disease with non-STEMI. She status post bypass surgery on 02/19. Today patient was seen in the ICU lying in chair comfortable not in distress. She denies chest pain or dyspnea or other symptoms. No abdominal pain, she is tolerating diet well. No problems regarding her bowel in urine habits. Patient is followed by several teams including vascular surgery primary team, pulmonary/critical care team, nephrology for hyponatremia and hematology/oncology for microcytic anemia. Vitals are stable. No more fevers since 02/21 Labs showing WBCs of 3.2K, hemoglobin 7.1, platelets is normal at 316K. Sodium improved to 131 today. Creatinine is normal Patient is currently on aspirin 81 mg of Plavix. He also on metoprolol 25 mg, phenobarbital and Dilantin and iron pills. Patient status post bone marrow biopsy under is also pending, hematology oncology of the case. 02/25/2020 Patient is awake and alert, resting in bed comfortably. She denies chest pain or dyspnea. He has some loose bowel movement, one large into yury however no abdominal pain, no nausea vomiting Vital signs stable. The loose E3.0K, hemoglobin improved significantly 7.8, platelets are normal at 433. Electrolytes and creatinine are acceptable range and normal. Sugars controlled. Bone marrow biopsy is still pending, patient was instructed to follow with the repairing calibrator Dr. Jara, patient informed and risks explained including but not limited to risk of cancer and she verbalized understanding and acceptance. No other complaint Objective - Vital Signs Vital signs: Vital Signs Temp 98.3 F 02/25/20 08:00 Pulse 80 02/25/20 09:25 Resp 20 02/25/20 08:00 BP 117/57 02/25/20 08:00 Pulse Ox 97 02/25/20 08:00 Intake & Output 02/24/20 02/25/20 02/25/20 18:59 06:59 18:59 Intake Total 540 600 Output Total 450 Balance -450 540 600 Weight 62.5 kg Intake: Oral 540 600 Output: Urine 450 Other: Voiding Method Bedside Commode Bedside Commode # Voids 1 # Bowel Movements 1 1 ABP, PAP, CO, CI - Last Documented Arterial Blood Pressure 131/47 Pulmonary Artery Pressure 29/13 Cardiac Output 5.2 Cardiac Index 3.1 - Exam GENERAL: The patient is alert and oriented x3, not in any acute distress. Well developed, well nourished. HEENT: Pupils are round and equally reacting to light. EOMI. No scleral icterus. No conjunctival pallor. Normocephalic, atraumatic. No pharyngeal erythema. No thyromegaly. CARDIOVASCULAR: S1 and S2 present. No murmurs, rubs, or gallops. PULMONARY: Chest is clear to auscultation, no wheezing or crackles. ABDOMEN: Soft, nontender, nondistended, normoactive bowel sounds. No palpable organomegaly. MUSCULOSKELETAL: No joint swelling or deformity. EXTREMITIES: No cyanosis, clubbing, or pedal edema. NEUROLOGICAL: Gross neurological examination did not reveal any focal deficits. SKIN: No rashes. no petechiae. - Labs CBC & Chem 7: 02/25/20 07:05 02/25/20 07:05 Labs: Abnormal Lab Results - Last 24 Hours (Table) 02/24/20 02/24/20 02/25/20 Range/Units 16:59 21:01 02:10 WBC (3.8-10.6) k/uL RBC (3.80-5.40) m/uL Hgb (11.4-16.0) gm/dL Hct (34.0-46.0) % MCV (80.0-100.0) fL MCH (25.0-35.0) pg RDW (11.5-15.5) % Lymphocytes # (1.0-4.8) k/uL Macrocytosis Sodium (137-145) mmol/L Glucose (74-99) mg/dL POC Glucose (mg/dL) 121 H 136 H 121 H (75-99) mg/dL Calcium (8.4-10.2) mg/dL 02/25/20 02/25/20 02/25/20 Range/Units 06:12 07:05 07:05 WBC 3.0 L (3.8-10.6) k/uL RBC 2.19 L (3.80-5.40) m/uL Hgb 7.8 L (11.4-16.0) gm/dL Hct 23.8 L (34.0-46.0) % MCV 108.3 H (80.0-100.0) fL MCH 35.4 H (25.0-35.0) pg RDW 24.1 H (11.5-15.5) % Lymphocytes # 0.6 L (1.0-4.8) k/uL Macrocytosis Marked A Sodium 134 L (137-145) mmol/L Glucose 100 H (74-99) mg/dL POC Glucose (mg/dL) 113 H (75-99) mg/dL Calcium 7.6 L (8.4-10.2) mg/dL 02/25/20 Range/Units 12:01 WBC (3.8-10.6) k/uL RBC (3.80-5.40) m/uL Hgb (11.4-16.0) gm/dL Hct (34.0-46.0) % MCV (80.0-100.0) fL MCH (25.0-35.0) pg RDW (11.5-15.5) % Lymphocytes # (1.0-4.8) k/uL Macrocytosis Sodium (137-145) mmol/L Glucose (74-99) mg/dL POC Glucose (mg/dL) 109 H (75-99) mg/dL Calcium (8.4-10.2) mg/dL Assessment and Plan Assessment: -Triple-vessel coronary bypass-February 19 -Acute non-Q-wave myocardial infarction POA -Bicytopenia with low leukocytosis and immobile been. Status post multiple blood transfusion. Status post bone marrow biopsy and results suspended -SIADH -Acute postop postprocedure blood loss anemia expected from surgery -Chronic epilepsy -Polio causing some weakness on the left of the body -Primary osteoarthritis affecting the hands and knees -Hypoosmolar hyponatremia from excessive fluid intake and decrease salt intake- slow to respond. Plan: This is a pleasant 79 years old female who presents with coronary artery disease status post bypass. Also she had hyponatremia secondary to SIADH, patient is followed closely by nephrology. Also patient followed by other consultants including pulmonary/critical care team, hematology/oncology and vascular surgery from primary team. Continue with aspirin and Plavix. Follow-up biopsy results (patient informed) follow-up labs and vitals. Patient was instructed extensively to follow-up with hematology as an outpatient for her biopsy results and she agrees. Labs and medication were reviewed.. Continue same treatment. Continue with symptomatic treatment. Resume home medication. Monitor lytes and vitals. DVT and GI prophylaxis. Further recommendations of the clinical course of the patient DVT prophylaxis and pain management as per surgery primary team Thank you for consulting us
--- NOTE | 2020-02-25 14:24 | P.PN ---
Subjective Progress Note Date: 02/25/20 Principal diagnosis: Severe triple-vessel coronary artery disease status post coronary artery bypass grafting 3, postoperative day 5 A 79-year-old. Patient is postop day #4 following three-vessel coronary artery bypass surgery. The patient is doing well. No specific complaints. She is using incentive spirometer. She is trying to pull more than a 500 on her incentive spirometer. Chest x-ray shows very tiny apical pneumothoraces and a small left-sided pleural effusion. No evidence of any pneumonia. All of the chest tubes are removed. The patient has developed some subcutaneous emphysema in the left upper shoulder area which is stable compared to yesterday. No al tered mentation. No cardiac arrhythmias and the patient's surgical wound site is dry clean and intact. Hemoglobin stable at 7.1. Rest of the blood work and electrodes are all within normal limits. She is on room air oxygen for now. On 02/25/2020 patient seen in follow-up on selective care unit. She is awake and alert, and room air, her pulse ox 97-98%, hemodynamically she stable, no fever or chills, breathing is comfortable, patient has been tolerating ambulation, denies any pain, denies any shortness of breath. No cough or congestion, remains in sinus mechanism with a controlled rate. Today's blood work reveals a hemoglobin of 7.8, serum sodium is 134, she remains on fluid restriction with 1.5 L of fluid intake in the 24-hour period, serum sodium has improved from yesterday. All her chest tubes and wires have been discontinued. She is tolerating ambulation in the hallway, his chest x-ray reveals small bilateral pleural effusions with mild bibasilar infiltrates. Clinically patient denies any symptoms, no shortness of breath, pulse ox is 98%. Discharge planning is in progress for discharge to inpatient rehab today Objective - Vital Signs Vital signs: Vital Signs Temp 98.3 F 02/25/20 08:00 Pulse 80 02/25/20 09:25 Resp 20 02/25/20 08:00 BP 117/57 02/25/20 08:00 Pulse Ox 97 02/25/20 08:00 Intake & Output 02/24/20 02/25/20 02/25/20 18:59 06:59 18:59 Intake Total 540 600 Output Total 450 Balance -450 540 600 Weight 62.5 kg Intake: Oral 540 600 Output: Urine 450 Other: Voiding Method Bedside Commode Bedside Commode # Voids 1 # Bowel Movements 1 1 ABP, PAP, CO, CI - Last Documented Arterial Blood Pressure 131/47 Pulmonary Artery Pressure 29/13 Cardiac Output 5.2 Cardiac Index 3.1 - Exam GENERAL EXAM: Alert, very pleasant, 79-year-old white female, room air, with a pulse ox of 98% comfortable in no apparent distress. HEAD: Normocephalic/atraumatic. EYES: Normal reaction of pupils, equal size. Conjunctiva pink, sclera white. NOSE: Clear with pink turbinates. THROAT: No erythema or exudates. NECK: No masses, no JVD, no thyroid enlargement, no adenopathy. CHEST: No chest wall deformity. Symmetrical expansion. Midsternal incision is clean dry and intact, chest tube sites are clean dry and intact, chest tube has been discontinued LUNGS: Equal air entry with no crackles, wheeze, rhonchi or dullness. CVS: Regular rate and rhythm, normal S1 and S2, no gallops, no murmurs, no rubs ABDOMEN: Soft, nontender. No hepatosplenomegaly, normal bowel sounds, no guarding or rigidity. EXTREMITIES: No clubbing, no edema, no cyanosis, 2+ pulses and upper and lower extremities. MUSCULOSKELETAL: Muscle strength and tone normal. SPINE: No scoliosis or deformity SKIN: No rashes CENTRAL NERVOUS SYSTEM: Alert and oriented -3. No focal deficits, tone is n ormal in all 4 extremities. PSYCHIATRIC: Alert and oriented -3. Appropriate affect. Intact judgment and insight. - Labs CBC & Chem 7: 02/25/20 07:05 02/25/20 07:05 Labs: Abnormal Lab Results - Last 24 Hours (Table) 02/24/20 02/24/20 02/25/20 Range/Units 16:59 21:01 02:10 WBC (3.8-10.6) k/uL RBC (3.80-5.40) m/uL Hgb (11.4-16.0) gm/dL Hct (34.0-46.0) % MCV (80.0-100.0) fL MCH (25.0-35.0) pg RDW (11.5-15.5) % Lymphocytes # (1.0-4.8) k/uL Macrocytosis Sodium (137-145) mmol/L Glucose (74-99) mg/dL POC Glucose (mg/dL) 121 H 136 H 121 H (75-99) mg/dL Calcium (8.4-10.2) mg/dL 02/25/20 02/25/20 02/25/20 Range/Units 06:12 07:05 07:05 WBC 3.0 L (3.8-10.6) k/uL RBC 2.19 L (3.80-5.40) m/uL Hgb 7.8 L (11.4-16.0) gm/dL Hct 23.8 L (34.0-46.0) % MCV 108.3 H (80.0-100.0) fL MCH 35.4 H (25.0-35.0) pg RDW 24.1 H (11.5-15.5) % Lymphocytes # 0.6 L (1.0-4.8) k/uL Macrocytosis Marked A Sodium 134 L (137-145) mmol/L Glucose 100 H (74-99) mg/dL POC Glucose (mg/dL) 113 H (75-99) mg/dL Calcium 7.6 L (8.4-10.2) mg/dL 02/25/20 Range/Units 12:01 WBC (3.8-10.6) k/uL RBC (3.80-5.40) m/uL Hgb (11.4-16.0) gm/dL Hct (34.0-46.0) % MCV (80.0-100.0) fL MCH (25.0-35.0) pg RDW (11.5-15.5) % Lymphocytes # (1.0-4.8) k/uL Macrocytosis Sodium (137-145) mmol/L Glucose (74-99) mg/dL POC Glucose (mg/dL) 109 H (75-99) mg/dL Calcium (8.4-10.2) mg/dL Assessment and Plan Plan: Assessment: #1. Severe triple-vessel coronary artery disease status post coronary artery bypass grafting 3, with AGRAWAL to the LAD, reverse SVG to the obtuse marginal and posterior descending artery, postoperative day #5 #2. Postop acute blood loss anemia, expected outcome of surgery, today's hemoglobin is 7.8, patient is status post transfusion with 3 units of packed red blood cells this admission. Patient was evaluated by hematology services preo peratively #3. Hyponatremia likely related to hypervolemia, patient is on fluid restriction with 1.5 L of fluid in the 24-hour period, serum sodium is improving, and is up to 134 on today's lab #4. History of macrocytic anemia, status post bone marrow biopsy, results are pending, patient has chronic anemia and hemoglobin is stable for now #5. History of polio #6. History of seizure disorder #7. Small bilateral pleural effusions seen on chest x-ray, no shortness of breath, room air pulse ox 98%, will continue to follow the postoperative period Plan: Today's chest x-ray has been reviewed, small bilateral pleural effusions were noted, no plans for thoracentesis, likely stable, no shortness of breath, she is on room air, hemoglobin is stable, hemodynamically stable, in sinus mechanism, tolerating ambulation, discharge planning is in progress for discharge to inpatient rehabilitation today, will follow up in the outpatient setting either at the inpatient rehab and in the office I performed a history & physical examination of the patient and discussed their management with my nurse practitioner, Ghislaine Ragland. I reviewed the nurse practitioner's note and agree with the documented findings and plan of care. Lung sounds are positive for diminished breath sounds at the bases. The findings and the impression was discussed with the patient. I attest to the documentation by the nurse practitioner. Time with Patient: Less than 30
--- NOTE | 2020-02-26 12:29 | P.VSCSTY ---
Greater Saphenous Vein Mapping This is bilateral lower extremity greater saphenous vein mapping. Date of service: 02/19/2020 Vein quality and ultrasound appearance: We see no intraluminal thrombus or wall changes. There is thrombus seen in a branch of the greater saphenous near the knee on the right.. Vein size groin right : 6 x 7 groin left: 5 x 5 High thigh right: 6 x 6 high thigh left: 6 x 6 Mid thigh right: 6 x 6 mid thigh left: 5 x 5 Above-knee right: 4 x 5 above-knee left: 6 x 6 Below knee right: 3 x 3 below-knee left: 4 x 4 Mid calf right: 3 x 3 mid calf left: 3 x 3 Ankle right: 2 x 2 ankle left: 2 x 2 Impression: Usable bilateral greater saphenous vein.
--- NOTE | 2020-02-26 12:30 | P.ARTDOP ---
Arterial Doppler LOWER EXTREMITY ARTERIAL DOPPLER: DATE OF SERVICE: 02/19/2020 Reason for study: Preop CABG. Doppler waveforms: Multiphasic bilaterally throughout. Pulse volume recording: []. Pressure gradients: None. Ankle-brachial indices: Greater than 1 bilaterally. Toe brachial indices: 0.97 on the right, 0.93 on the left Impression: Normal study.
== END 2020-02-25 13:56 | disposition short-term general hospital (02) | DRG 236 ==
LOC: 3SCARD 17:27 → 2SICU 02-20 08:04 → 3SCARD 02-24 18:22
PROVIDERS: ADMIT Thoracic Surgery (Cardiothoracic Vascular Surgery); ATTEND Thoracic Surgery (Cardiothoracic Vascular Surgery)
PROC: 02L70CK Occlusion of Left Atrial Appendage with Extraluminal Device, Open Approach (ICD-10-PCS; principal; 2020-02-20 08:00)
PROC: 06BQ0ZZ Excision of Left Saphenous Vein, Open Approach (ICD-10-PCS; principal; 2020-02-20 08:00)
PROC: 02100Z9 Bypass Coronary Artery, One Artery from Left Internal Mammary, Open Approach (ICD-10-PCS; principal; 2020-02-20 08:00)
PROC: 0211093 Bypass Coronary Artery, Two Arteries from Coronary Artery with Autologous Venous Tissue, Open Approach (ICD-10-PCS; principal; 2020-02-20 08:00)
PROC: 07DQ0ZX Extraction of Sternum Bone Marrow, Open Approach, Diagnostic (ICD-10-PCS; principal; 2020-02-20 08:00)
PROC: 30233N1 Transfusion of Nonautologous Red Blood Cells into Peripheral Vein, Percutaneous Approach (ICD-10-PCS; 2020-02-20 08:00)
PROC: 5A1935Z Respiratory Ventilation, Less than 24 Consecutive Hours (ICD-10-PCS; 2020-02-20 08:00)
PROC: 0BH17EZ Insertion of Endotracheal Airway into Trachea, Via Natural or Artificial Opening (ICD-10-PCS; 2020-02-20 08:00)
DX: I21.4 Non-ST elevation (NSTEMI) myocardial infarction (principal); E22.2 Syndrome of inappropriate secretion of antidiuretic hormone; D62 Acute posthemorrhagic anemia; D61.818 Other pancytopenia; I25.10 Atherosclerotic heart disease of native coronary artery without angina pectoris; G40.909 Epilepsy, unspecified, not intractable, without status epilepticus; M17.0 Bilateral primary osteoarthritis of knee; M19.042 Primary osteoarthritis, left hand; M19.041 Primary osteoarthritis, right hand; D53.9 Nutritional anemia, unspecified; E87.70 Fluid overload, unspecified; Z79.83 Long term (current) use of bisphosphonates; Z79.899 Other long term (current) drug therapy; Z79.82 Long term (current) use of aspirin; Z87.01 Personal history of pneumonia (recurrent); Z90.710 Acquired absence of both cervix and uterus; I25.2 Old myocardial infarction; Z90.49 Acquired absence of other specified parts of digestive tract; Z90.89 Acquired absence of other organs; Z82.49 Family history of ischemic heart disease and other diseases of the circulatory system; Z80.3 Family history of malignant neoplasm of breast; Z98.890 Other specified postprocedural states; B91 Sequelae of poliomyelitis
CPT/HCPCS: 36430; 71045; 71046; 80048; 80053; 80061; 80074; 81003; 82330; 82805; 83010; 83036; 83735; 83921; 83930; 83935; 84132; 84295; 84300; 84439; 84443; 85025; 85027; 85045; 85520; 85610; 85730; 86850; 86891; 86900; 86901; 86920; 87070; 93880; 93922; 93970; 94150; 94640

== ENCOUNTER → 2020-04-01 | Outpatient (CLI) | payer MEDICARE ==
--- NOTE | 2020-04-01 11:16 | XR ---
EXAMINATION TYPE: XR chest 2V DATE OF EXAM: 04/01/2020 COMPARISON: 02/25/2020 HISTORY: Shortness of breath TECHNIQUE: Frontal and lateral views of the chest are obtained. FINDINGS: Scattered senescent parenchymal changes noted. Hyperinflation compatible with COPD. Left greater than right pleural effusions. Left lower lobe atelectasis and/or infiltrate. Heart size is stable. Mediastinal structures are stable and grossly unremarkable. No evidence for hilar prominence. Degenerative changes dorsal spine. IMPRESSION: 1. Left greater than right pleural effusions. Left lower lobe atelectasis and/or infiltrate.
== END | disposition home or self-care (01) ==
LOC: RADXRMAIN 10:38
PROVIDERS: ATTEND Nurse Practitioner
DX: R06.02 Shortness of breath (principal); Z95.1 Presence of aortocoronary bypass graft; J90 Pleural effusion, not elsewhere classified
CPT/HCPCS: 71046

== ENCOUNTER → 2021-05-06 | Outpatient (CLI) | payer MEDICARE ==
--- NOTE | 2021-05-06 14:17 | XR ---
EXAMINATION TYPE: XR chest 2V DATE OF EXAM: 05/06/2021 COMPARISON: Chest x-ray 04/01/2020 HISTORY: Congestive heart failure, pleural effusion and shortness of breath TECHNIQUE: Frontal and lateral views of the chest are obtained. FINDINGS: Bibasilar density persists, the hemidiaphragms are obscured. No evident pneumothorax. Blun ting the costophrenic angles is again noted. Heart shows a similar appearance accounting for differen bony in technique, rotation. Aorta is dense. Patient is post left atrial appendage clip placement. Bon e mineralization is reduced. Prominent lung volumes with flattening the hemidiaphragms suggests under lying COPD. Coronary artery stent, calcifications are noted. IMPRESSION: Bibasilar effusions and associated atelectasis versus edema, correlate to exclude pneumo suhas. Postop changes, stable heart.
== END | disposition home or self-care (01) ==
LOC: RADXRMAIN 12:22
PROVIDERS: ATTEND Internal Medicine Interventional Cardiology
DX: I50.9 Heart failure, unspecified (principal); J90 Pleural effusion, not elsewhere classified
CPT/HCPCS: 71046

== ENCOUNTER → 2021-07-22 | Outpatient (CLI) | payer MEDICARE | END | disposition home or self-care (01) | LOC: LABPAT 12:03 | PROVIDERS: ATTEND Internal Medicine Clinical Cardiac Electrophysiology | DX: Z01.812 Encounter for preprocedural laboratory examination (principal); Z20.822 Contact with and (suspected) exposure to COVID-19 ==

== ENCOUNTER 2021-07-26 08:15 | Day surgery (SDC) | payer MEDICARE ==
[2021-07-22 15:00] VITALS: BMI 38.9
[~2021-07-26 08:15] MED LIST: SODIUM CHLORIDE 0.9% 1,000 ML IV SCH; VANCOMYCIN 0 MG in SODIUM CHLORIDE 0.9% 250 ML IVPB ONE; VANCOMYCIN 1,500 MG in SODIUM CHLORIDE 0.9% 250 ML IVPB ONE; VANCOMYCIN IV PER PHARMACY 1 EACH MISC MISCELLANE PRN; ceFAZolin 1 GM in SODIUM CHLORIDE 0.9% 250 ML IRRIGATION PRN
[2021-07-26] MEDS ORDERED: SODIUM CHLORIDE 0.9% 500 ML 500 ML IV ONE (08:55)
[2021-07-26 09:10] VITALS: RESP 16; TEMP 99
[2021-07-26 09:15] LABS: Anisocytosis Moderate; Basophils % (A) 1 %; Eosinophils # (A) 0.1 k/uL (0-0.7); Eosinophils % (A) 4 %; HCT 24.1 % (34.0-46.0); HGB 8.4 gm/dL (11.4-16.0); Hypochromasia Moderate; Lymphocytes # (A) 0.8 k/uL (1.0-4.8); Lymphocytes % (A) 29 %; MCHC 34.9 g/dL (31.0-37.0); MCV 138.3 fL (80.0-100.0); Macrocytosis Marked; Mean Platelet Volume 8.6; Monocytes # (A) 0.1 k/uL (0-1.0); Monocytes % (A) 4 %; Neutrophils # (A) 1.6 k/uL (1.3-7.7); Neutrophils % (A) 57 %; Platelet Count 595 k/uL (150-450); RBC 1.74 m/uL (3.80-5.40); RDW 22.8 % (11.5-15.5); WBC 2.9 k/uL (3.8-10.6)
[2021-07-26 09:31] LABS: MCH 48.2 pg (25.0-35.0)
[2021-07-26 10:21] LABS: Poikilocytosis (M) Present
[2021-07-26] MEDS ORDERED: MIDAZOLAM 2 MG/2 ML VIAL ONE (11:30)
[2021-07-26] MEDS ORDERED: PHENYLEPHRINE-0.9% NACL SYG 1,000 MCG/10 ML SYRINGE ONE (11:30)
[2021-07-26] MEDS ORDERED: SODIUM CHLORIDE 0.9% (PF) 10 ML VIAL ONE (11:30)
[2021-07-26] MEDS ORDERED: .fentaNYL (PF) 50 MCG/ML 2 ML AMP ONE (11:30)
[2021-07-26] MEDS ORDERED: HYDROmorphone (PF) 1 MG/ML ONE (11:30)
[2021-07-26] MEDS ORDERED: PROPOFOL 10 MG/ML 20 ML VIAL IV ONE (11:30)
[2021-07-26] MEDS ORDERED: ePHEDrine 50 MG/ML 1 ML AMP ONE (11:30)
[2021-07-26] MEDS ORDERED: IOPAMIDOL-370 50ML BTL INJ ONE (11:41)
[2021-07-26] MEDS ORDERED: LIDOCAINE 1% INJ 10MG/ML (20 ML MDV) SQ ONE ×2 (12:01→12:05)
[2021-07-26] MEDS ORDERED: ACETAMINOPHEN TAB 325 MG TAB PO PRN (13:35)
--- NOTE | 2021-07-26 13:35 | P.EPPROC ---
- EP Procedure Note Electrophysiology Procedure Note: Left upper extremity venogram 15 mL IV dye injected in the left arm Patent left subclavian Artery system Patent innominate veins Plan proceed with dual-chamber ICD implantation for management of primary prevention of sudden cardiac and chronotropic incompetence
--- NOTE | 2021-07-26 14:11 | P.PRLE ---
RE: Agustina Petit Dear Jacqueline Berrios underwent dual-chamber ICD implantation for primary prevention of sudden cardiac and Sick Sinus Syndrome I would recommend increasing the dose of beta blockers now. She will continue on her other cardiac medications unchanged Thank you for entrusting me with the care of the patient Warm regards Sincerely Marvin Soares
[2021-07-26] MEDS ORDERED: ACETAMINOPHEN IV (For NPO) 1,000 MG in EMPTY BAG 1 BAG IVPB ONE (14:30)
--- NOTE | 2021-07-26 15:53 | PCN ---
PROCEDURE NOTE DUAL-CHAMBER ICD IMPLANTATION: Agustina Petit is a 81-year-old female with ischemic cardiomyopathy, severe LV dysfunction, ejection fraction less than 35% chronically, despite guideline-directed medical treatment for greater than 3 months, congestive heart failure, class 2, and evidence of sick sinus syndrome with chronotropic incompetence. The patient was brought to the EP lab in a fasting state. Written informed consent was obtained prior to the procedure. The left shoulder area was prepped and draped as per protocol; 1% lidocaine was used for local anesthesia. A 4 cm incision was made parallel to the deltopectoral groove, about 1.5 cm medial to it. The incision was carried down to the level of the pectoralis muscle. A subfascial pocket was made. Hemostasis was assured. The left axillary vein was accessed at 2 separate points under fluoroscopy, and via appropriately sized introducer sheaths, 2 leads were positioned in the right heart. The single-coil Medtronic ICD lead model #6935M, 62 cm in length, and serial number [id number] was implanted in the mid RV septum. R-waves were 15.8 mV, pacing impedance 475 ohms, pacing threshold 1 V at 0.4 millisecond, high-voltage impedance 47 ohms. The atrial lead was a model #5076, 52 cm length, and serial number [id number]. This was screwed in the right atrial appendage stump. P-waves 4 mV, pacing impedance 756 ohms, pacing threshold 0.6 V at 0.5 millisecond. Ten-volt test was negative. Both leads were secured to the underlying pectoralis fascia using 2 nonabsorbable sutures. Pocket was irrigated with antibiotic solution. Leads were connected to the generator (Medtronic model number DDMB 1D4), serial number [id number]. The leads and the generator were then placed in the subfascial pocket and the wound was closed in 3 layers and dressed per protocol. RESULT: Successful dual-chamber ICD implantation for primary prevention of sudden cardiac and management of chronotropic incompetence. PLAN: IV antibiotics. Increase metoprolol succinate to 75 mg p.o. daily. Follow up in the device clinic. MMODL / IJN: [id number] /
--- NOTE | 2021-07-26 16:02 | XR ---
EXAMINATION TYPE: XR chest 1V portable DATE OF EXAM: 07/26/2021 COMPARISON: Chest x-ray 05/06/2021 HISTORY: Lead placement check TECHNIQUE: Single frontal view of the chest is obtained. FINDINGS: Patient shows a generator in the left pectoral region, there are leads in right atrium and ventricle, patient is post left atrial appendage clip placement. Bibasilar increased attenuation per sists, there is blunting the cost phrenic angles. No evident pneumothorax. Heart is thought to be enl arged but is obscured. Prominence of pulmonary artery could be indicative of pulmonary artery hyperte nsion. Bones are stable. There is a spinal curvature. Aorta is dense. IMPRESSION: Basilar effusions and associated atelectasis versus edema, difficult to exclude pneumoni a, correlate.
[2021-07-26 19:23] VITALS: BP 110/60; PULSE 59
[2021-07-26] MEDS ORDERED: VANCOMYCIN 1,000 MG in SODIUM CHLORIDE 0.9% 250 ML IVPB SCH (22:00)
== END 2021-07-26 18:15 | disposition home or self-care (01) ==
LOC: CATHEP 08:15
PROVIDERS: ATTEND Internal Medicine Clinical Cardiac Electrophysiology
DX: I25.5 Ischemic cardiomyopathy (principal); I49.5 Sick sinus syndrome; I25.10 Atherosclerotic heart disease of native coronary artery without angina pectoris; I11.0 Hypertensive heart disease with heart failure; I50.22 Chronic systolic (congestive) heart failure; J44.9 Chronic obstructive pulmonary disease, unspecified; E78.2 Mixed hyperlipidemia; Z95.1 Presence of aortocoronary bypass graft; Z82.49 Family history of ischemic heart disease and other diseases of the circulatory system; Z79.82 Long term (current) use of aspirin; Z79.51 Long term (current) use of inhaled steroids; Z79.899 Other long term (current) drug therapy
CPT/HCPCS: 33249; 85025; 87635; 71045; C1769 ×3; C1892 ×2; C1898; C1895; C1721; J2250; J3370; J0690; J2001; J3010; J1170; J0131; J2370; J2704; Q9967